=== PATIENT | male | born 1940 | race Caucasian/White ===

== ENCOUNTER 2018-03-20 11:04 | Emergency (ER) | payer OTHER ==
--- NOTE | 2018-03-20 13:38 | RAD REPORT ---
EXAM DESCRIPTION: RAD Hip Right 2 View 03/20/2018 11:34 CLINICAL HISTORY: Hip pain, history of recent falls. TECHNIQUE: AP and frog leg lateral views of the right hip were obtained. COMPARISON: Right hip December 19, 2016. FINDINGS: No acute fracture change. No dislocation or periosteal reaction. No AVN or focal femoral head process. No joint effusion. Minimal degenerative change along the superior acetabular rim. No joint effusion or periarticular abnormality. There is an old well healed proximal femur fracture. Numerous surgical clips are present in the soft tissues presumed to be vein harvesting. No suspicious soft tissue finding. IMPRESSION: 1. Minimal degenerative change at the right hip joint. 2. No acute or suspicious finding is seen. No significant change from November 2016.
[2018-03-20] MEDS ORDERED: CIPROFLOXACIN HCL 500 MG TAB ONE (13:43)
[2018-03-20 14:04] LABS: Urine Bacteria >50 /HPF (NONE SEEN); Urine RBC 20-50 /HPF (NONE SEEN)
[2018-03-20 14:05] LABS: Urine Culture Reflex Order REFLEXED; Urine White Blood Cell Casts 0-5 /LPF (NONE SEEN)
--- NOTE | 2018-03-20 14:16 | RAD REPORT ---
EXAM DESCRIPTION: CT - Abdomen Pelvis Wo Contrast - 03/20/2018 1:53 pm CLINICAL HISTORY: Abdominal pain COMPARISON: None. TECHNIQUE: Axial [address] imaging of the abdomen and pelvis was performed without IV contrast. No IV contrast was given because of allergy, abnormal renal function, patient refusal or physician re quest. No oral contrast administered. All CT scans are performed using dose optimization technique as appropriate and may include automated exposure control or mA/KV adjustment according to patient size. FINDINGS: No suspicious findings in the lung bases. No pericardial thickening or effusion. Liver size is normal with no focal liver lesion on noncontrast imaging. Spleen is normal in size. A 2 centimeter round low-density area in the lateral mid spleen is identifiable. No comparison is availa ble. Long-term significance is doubtful. No solid or cystic pancreatic mass. Punctate calcifications near the duodenum pancreatic interface are present. These are not believed to be related to the bilia ry tree. No acute peripancreatic stranding. Gallbladder is distended. No pericholecystic fluid. Numer ous variably sized gallstones are present. Biliary tree does not appear to be dilated. No hydronephrosis or suspicious renal mass. No significant adrenal finding. Isodense renal masses an d pyelonephritis cannot be excluded in the absence of IV contrast. Urinary bladder is mostly contract ed. Bacon of the urinary bladder are slightly shaggy. Cystitis is not excluded. In the lateral lower pole left kidney there is an 18 millimeter low-density mass. This is probably a cyst but not fully ch aracterized. There is symmetric bilateral perinephric stranding present. No gastric dilatation or gastric wall thickening. No acute small bowel finding. No appendicitis findi ngs. Moderate stool volume seen in the colon. No colitis or acute colon process identifiable. No free air or pneumatosis. No abnormal free fluid collections seen. No mass or bulky lymphadenopathy. No ab dominal wall hematoma. Moderate-sized fat only left inguinal hernia is present. No congested or edema tous fat. Disc and bony degenerative changes are present. Left hip prosthesis in place. Acute or pathologic bon e process not suspected. IMPRESSION: No bowel obstruction, free air or surgically emergent finding. Gallbladder is distended and contains multiple gallstones. No biliary tree dilatation. Correlation is needed with any laboratory or exam findings of cholecystitis. No pancreatitis or other acute upper abdominal findings. No acute renal or ureteral process seen. Bacon of the urinary bladder are slightly shaggy and edemato us. Cystitis is possible. Moderate-sized fat only left inguinal hernia. No congested or edematous component. Full assessment is limited is the absence of IV contrast.
[2018-03-20] MEDS ORDERED: CODEINE 30MG/APAP 300MG TAB ONE (14:35)
--- NOTE | 2018-03-20 14:38 | EDPHYS ---
Physician Documentation [facility] Name: Olvin Smith Jr Age: 77 yrs Sex: Male : 1940 Arrival Date: 03/20/2018 Time: 11:09 Bed 13 Private MD: Juan Malin E ED Physician Alex Donaldson HPI: 03/20 11:27 This 77 yrs old Male presents to ER via Wheelchair with complaints of Hip kav Pain. 11:34 The patient or guardian reports decreased range of motion, pain. that occurred at home, kav sustained from a fall, while walking, There is no obvious deformity, The patient is able to ambulate with assistance. The patient is able to bear partial body weight. There is no radiation of the patient's discomfort. The patient was discovered 2 weeksafter the incident. The complaints affect the pelvis and right hip. Onset: The symptoms/episode began/occurred acutely, 2 week(s) ago. Modifying factors: The symptoms are alleviated by nothing. Associated signs and symptoms: Loss of consciousness: the patient experienced no loss of consciousness, Pertinent positives: None. Pertinent negatives: None. Severity of symptoms: At their worst the symptoms were mild, just prior to arrival, in the emergency department the symptoms are unchanged. The patient has not experienced similar symptoms in the past. The patient has not recently seen a physician. Patient reports chief c/o right hip pain x 2 weeks related to fall approximately 2 weeks ago on the right hip. He reports ambulating with a walker and tripping and falling landing on his right hip.. 11:39 right total hip approximately 2 years ago performed in [place], [place]. kav 11:45 The patient has been recently seen by a physician: the patient's primary care provider, maciel for apparently unrelated complaints, Dr. Malin. Patient reports that he was given a prescription for Tylenol # 3 for Right Hip Pain approximately 2 days ago and that "...it does not work for him very well". 13:33 . Patient's daughter reports that she has "...been giving him some Bactrim that she got kav from [facility] for the past seven days for suspected UTI".. Historical: - Allergies: 11:34 No Known Allergies; tw2 - Home Meds: 11:34 aspirin Oral [Active]; Metoprolol Tartrate Oral [Active]; Lisinopril Oral [Active]; tw2 fluticasone topical topical [Active]; amlodipine oral [Active]; tiotropium bromide inhalation inhalation [Active]; - PMHx: 11:34 Diabetes - NIDDM; Hypertension; tw2 - PSHx: 11:34 Quadruple bypass; right hip replacement; tw2 - Immunization history:: Adult Immunizations up to date. - Social history:: Smoking status: Patient/guardian denies using tobacco. - Ebola Screening: : Patient denies travel to an Ebola-affected area in the 21 days before illness onset. - Family history:: not pertinent. - Hospitalizations: : No recent hospitalization is reported. - History obtained from: daughter. ROS: 11:39 Constitutional: Negative for fever, chills, and weight loss, Eyes: Negative for injury, kav pain, redness, and discharge, ENT: Negative for injury, pain, and discharge, Neck: Negative for injury, pain, and swelling, Cardiovascular: Negative for chest pain, palpitations, and edema, Respiratory: Negative for shortness of breath, cough, wheezing, and pleuritic chest pain, Abdomen/GI: Negative for abdominal pain, nausea, vomiting, diarrhea, and constipation, Back: Negative for injury and pain, : Negative for injury, bleeding, discharge, and swelling, Skin: Negative for injury, rash, and discoloration, Neuro: Negative for headache, weakness, numbness, tingling, and seizure, Psych: Negative for depression, anxiety, suicide ideation, homicidal ideation, and hallucinations, Allergy/Immunology: Negative for hives, rash, and allergies, Endocrine: Negative for neck swelling, polydipsia, polyuria, polyphagia, and marked weight changes, Hematologic/Lymphatic: Negative for swollen nodes, abnormal bleeding, and unusual bruising. 11:39 MS/extremity: Positive for pain, of the right hip. Exam: 11:39 Constitutional: This is a well developed, well nourished patient who is awake, alert, kav and in no acute distress. Head/Face: Normocephalic, atraumatic. Eyes: Pupils equal round and reactive to light, extra-ocular motions intact. Lids and lashes normal. Conjunctiva and sclera are non-icteric and not injected. Cornea within normal limits. Periorbital areas with no swelling, redness, or edema. ENT: Nares patent. No nasal discharge, no septal abnormalities noted. Tympanic membranes are normal and external auditory canals are clear. Oropharynx with no redness, swelling, or masses, exudates, or evidence of obstruction, uvula midline. Mucous membranes moist. Neck: Trachea midline, no thyromegaly or masses palpated, and no cervical lymphadenopathy. Supple, full range of motion without nuchal rigidity, or vertebral point tenderness. No Meningismus. Chest/axilla: Normal chest wall appearance and motion. Nontender with no deformity. No lesions are appreciated. Cardiovascular: Regular rate and rhythm with a normal S1 and S2. No gallops, murmurs, or rubs. Normal PMI, no JVD. No pulse deficits. Respiratory: Lungs have equal breath sounds bilaterally, clear to auscultation and percussion. No rales, rhonchi or wheezes noted. No increased work of breathing, no retractions or nasal flaring. Abdomen/GI: Soft, non-tender, with normal bowel sounds. No distension or tympany. No guarding or rebound. No evidence of tenderness throughout. Back: No spinal tenderness. No costovertebral tenderness. Full range of motion. Skin: Warm, dry with normal turgor. Normal color with no rashes, no lesions, and no evidence of cellulitis. Neuro: Awake and alert, GCS 15, oriented to person, place, time, and situation. Cranial nerves II-XII grossly intact. Motor strength 5/5 in all extremities. Sensory grossly intact. Cerebellar exam normal. Normal gait. Psych: Awake, alert, with orientation to person, place and time. Behavior, mood, and affect are within normal limits. 11:39 : patient smells like urine. daughter of patient request "... a urine analysis be performed". 11:39 Musculoskeletal/extremity: Extremities: noted in the right hip: pain, ROM: full active range of motion, in the right hip, full passive range of motion, in the right hip, Circulation is intact in all extremities. Pulses: are normal with no appreciated deficits, Sensation intact. Joints: the right hip displays pain at rest, Weight bearing: can bear weight with assistance only, uses walker. Vital Signs: 11:15 BP 145 / 74; Pulse 60; Resp 18; Temp 98.4; Pulse Ox 98% on R/A; Weight 90.72 kg (R); dm5 Height 5 ft. 8 in. (172.72 cm); Pain 3/10; 12:47 BP 130 / 54; Pulse 75; Resp 17; Pulse Ox 97% on R/A; tw2 13:45 BP 173 / 81; Pulse 65; Resp 17; Pulse Ox 100% on R/A; tw2 14:52 BP 167 / 68; Pulse 72; Resp 17; Pulse Ox 97% on R/A; tw2 11:15 Body Mass Index 30.41 (90.72 kg, 172.72 cm) dm5 MDM: 11:26 Patient medically screened. community [facility] 13:33 Data reviewed: vital signs, nurses notes. [facility] 03/20 13:30 Order name: Urine Microscopic Only; Complete Time: 14:44 [facility] 03/20 14:44 Interpretation: UWBC LOADED; URBC 20-50; UBACT >50. community [facility] 03/20 13:36 Order name: Urine Dipstick--Ancillary (enter results) ag 03/20 11:34 Order name: Hip Right 2 View XRAY [facility] 03/20 14:32 Interpretation: No acute disease. [facility] 03/20 13:38 Order name: CT Abd/Pelvis - Without Cont; Complete Time: 14:30 [facility] 03/20 14:32 Interpretation: No acute disease except: Cystitis. [facility] 03/20 14:06 Order name: Urine Culture [facility] 03/20 11:34 Order name: Urine Dipstick-Ancillary (obtain specimen); Complete Time: 13:11 [facility] 03/20 13:10 Interpretation: Within normal limits. community [facility] Administered Medications: 13:44 Drug: Cipro 500 mg Route: PO; tw2 14:25 Follow up: Response: No adverse reaction tw2 14:36 Drug: Tylenol #3 (300 mg-30 mg) 1 tablet Route: PO; tw2 Disposition: 16:47 Co-signature as Attending Physician, Alex Donaldson MD I agree with the assessment and kdr plan of care. Disposition: 03/20/18 14:37 Discharged to Home. Impression: Cystitis, unspecified, Erosive (osteo)arthritis, Other osteoporosis with current pathological fracture, right femur. - Condition is Stable. - Discharge Instructions: Femoral Shaft Fracture, Urinary Tract Infection, [id number], Arthritis, Nonspecific, [id number]. - Prescriptions for Tylenol- Codeine #3 300-30 mg Oral Tablet - take 2 tablet by ORAL route every 6 hours As needed; 30 tablet. Cipro 500 mg Oral Tablet - take 1 tablet by ORAL route every 12 hours for 7 days; 14 tablet. - Medication Reconciliation Form, Thank You Letter, Antibiotic Education, Prescription Opioid Use form. - Follow up: Juan Malin MD; When: 2 - 3 days; Reason: Recheck today's complaints, Continuance of care, Re-evaluation by your physician. - Problem is new. - Symptoms have improved. Signatures: Dispatcher [employer] EDMS Alex Donaldson MD MD kdr Vern, Katherine, COAL CHUTE WORKER COAL CHUTE WORKER Doreen Wesley RN RN tw2 Corrections: (The following items were deleted from the chart) 14:44 14:44 Normal except: UWBC LOADED; URBC 20-50; UBACT >[address]. [address] 14:52 14:37 03/20/2018 14:37 Discharged to Home. Impression: Cystitis, unspecified; Erosive tw2 (osteo)arthritis; Other osteoporosis with current pathological fracture, right femur. Condition is Stable. Forms are Medication Reconciliation Form, Thank You Letter, Antibiotic Education, Prescription Opioid Use. Follow up: Juan Malin; When: 2 - 3 days; Reason: Recheck today's complaints, Continuance of care, Re-evaluation by your physician. Problem is new. Symptoms have improved. kav
--- NOTE | 2018-03-20 14:38 | ER ---
Nurse's Notes [facility] Name: Olvin Smith Jr Age: 77 yrs Sex: Male : 1940 Arrival Date: 03/20/2018 Time: 11:09 Bed 13 Private MD: Juan Malin E Diagnosis: Cystitis, unspecified;Erosive (osteo)arthritis;Other osteoporosis with current pathological fracture, right femur Presentation: 03/20 11:15 Presenting complaint: Patient states: right hip replacement 2 1/2 years ago "and its dm5 not doing so good". Pain has gotten worse over the last 2-3 days. Pt denies any recent injury. Transition of care: patient was not received from another setting of care. Onset of symptoms was March 17, 2018. Risk Assessment: Do you want to hurt yourself or someone else? Patient reports no desire to harm self or others. Initial Sepsis Screen: Does the patient meet any 2 criteria? No. Patient's initial sepsis screen is negative. Does the patient have a suspected source of infection? No. Patient's initial sepsis screen is negative. Care prior to arrival: None. 11:15 Method Of Arrival: Wheelchair dm5 11:15 Acuity: MARCELINO 3 dm5 11:26 Note Daughter states pt did fall about a week and a half ago and that urine appears to dm5 be cloudy. Triage Assessment: 11:15 Pain: Complains of pain in right hip Pain does not radiate. Pain at worst was 10 out of dm5 10 on a pain scale. Quality of pain is described as aching, Pain began 2-3 days ago. Is intermittent. Historical: - Allergies: 11:34 No Known Allergies; tw2 - Home Meds: 11:34 aspirin Oral [Active]; Metoprolol Tartrate Oral [Active]; Lisinopril Oral [Active]; tw2 fluticasone topical topical [Active]; amlodipine oral [Active]; tiotropium bromide inhalation inhalation [Active]; - PMHx: 11:34 Diabetes - NIDDM; Hypertension; tw2 - PSHx: 11:34 Quadruple bypass; right hip replacement; tw2 - Immunization history:: Adult Immunizations up to date. - Social history:: Smoking status: Patient/guardian denies using tobacco. - Ebola Screening: : Patient denies travel to an Ebola-affected area in the 21 days before illness onset. - Family history:: not pertinent. - Hospitalizations: : No recent hospitalization is reported. - History obtained from: daughter. Screenin:50 Abuse screen: Denies threats or abuse. Nutritional screening: No deficits noted. tw2 Tuberculosis screening: No symptoms or risk factors identified. Fall Risk Fall in past 12 months (25 points). Assessment: 11:24 Reassessment: assisting as standby as pt gets into bed, offered for a new brief and to tw2 clean pt, pt declined stated "no thanks", daughter and at bedside. General: Appears in no apparent distress. Behavior is calm, cooperative, appropriate for age. Pain: Complains of pain in right hip. Neuro: Level of Consciousness is awake, alert, obeys commands, Oriented to person, place, time, situation. Cardiovascular: Denies chest pain, shortness of breath, Heart tones S1 S2 Capillary refill is > 3 seconds Patient's skin is warm and dry. Respiratory: Airway is patent Respiratory effort is even, unlabored, Respiratory pattern is regular, symmetrical, Breath sounds are clear bilaterally. GI: Abdomen is round non-distended, Bowel sounds present X 4 quads. : No signs and/or symptoms were reported regarding the genitourinary system. EENT: No signs and/or symptoms were reported regarding the EENT system. Derm: No signs and/or symptoms reported regarding the dermatologic system. Musculoskeletal: Circulation, motion, and sensation intact. Range of motion: intact in all extremities. 12:00 Reassessment: Patient appears in no apparent distress at this time. No changes from tw2 previously documented assessment. Patient and/or family updated on plan of care and expected duration. Pain level reassessed. Patient is alert, oriented x 3, equal unlabored respirations, skin warm/dry/pink. 13:00 Reassessment: Patient appears in no apparent distress at this time. No changes from tw2 previously documented assessment. Patient and/or family updated on plan of care and expected duration. Pain level reassessed. Patient is alert, oriented x 3, equal unlabored respirations, skin warm/dry/pink. 14:00 Reassessment: Patient appears in no apparent distress at this time. No changes from tw2 previously documented assessment. Patient and/or family updated on plan of care and expected duration. Pain level reassessed. Patient is alert, oriented x 3, equal unlabored respirations, skin warm/dry/pink. 14:10 Reassessment: pt agreed to let us change him at this time, requested we place we tw2 sweatpants back on, offered gown, pt refused. 14:26 Reassessment: Patient appears in no apparent distress at this time. pt eating tw2 [employer] hamburger at this time. NAD. 14:45 Reassessment: Patient appears in no apparent distress at this time. No changes from tw2 previously documented assessment. Patient and/or family updated on plan of care and expected duration. Pain level reassessed. Patient is alert, oriented x 3, equal unlabored respirations, skin warm/dry/pink. Vital Signs: 11:15 BP 145 / 74; Pulse 60; Resp 18; Temp 98.4; Pulse Ox 98% on R/A; Weight 90.72 kg (R); dm5 Height 5 ft. 8 in. (172.72 cm); Pain 3/10; 12:47 BP 130 / 54; Pulse 75; Resp 17; Pulse Ox 97% on R/A; tw2 13:45 BP 173 / 81; Pulse 65; Resp 17; Pulse Ox 100% on R/A; tw2 14:52 BP 167 / 68; Pulse 72; Resp 17; Pulse Ox 97% on R/A; tw2 11:15 Body Mass Index 30.41 (90.72 kg, 172.72 cm) 5 ED Course: 11:09 Patient arrived in ED. mr 11:09 Juan Malin MD is Private Physician. mr 11:15 Arm band placed on left wrist. dm5 11:18 Triage completed. dm5 11:24 Bed in low position. Call light in reach. Side rails up X2. Adult w/ patient. Pulse ox tw2 on. NIBP on. 11:26 Ann Marie Paulino FNP is PHCP. kav 11:26 Alex Donaldson MD is Attending Physician. kav 11:28 Doreen Wilson, BILL is Primary Nurse. tw2 12:16 X-ray completed. Portable x-ray completed in exam room. Patient tolerated procedure jb2 well. 12:20 Hip Right 2 View XRAY In Process Unspecified. EDMS 13:53 CT completed. Patient tolerated procedure well. Patient moved to CT via stretcher. sj Patient moved back from CT. 13:53 CT Abd/Pelvis - Without Cont In Process Unspecified. EDCA 14:33 Juan Malin MD is Referral Physician. ka 14:44 No provider procedures requiring assistance completed. Patient did not have IV access tw2 during this emergency room visit. Administered Medications: 13:44 Drug: Cipro 500 mg Route: PO; tw2 14:25 Follow up: Response: No adverse reaction tw2 14:36 Drug: Tylenol #3 (300 mg-30 mg) 1 tablet Route: PO; tw2 Outcome: 14:37 Discharge ordered by . kav 14:44 Discharged to home via wheelchair, with family. tw 14:44 Condition: stable 14:44 Discharge instructions given to patient, family, Instructed on discharge instructions, follow up and referral plans. no drinking with medication, no driving heavy equipment, medication usage, Demonstrated understanding of instructions, follow-up care, medications, Prescriptions given X 2. 14:52 Patient left the ED. tw2 Addendum: 03/24/2018 08:19 Addendum: Culture Results: Positive urine culture. Phone call Attempt #1 Spoke with s s patient's family member, who states that patient is not there at this time. Left a message with family to have patient call back at his convenience. Signatures: Dispatcher [employer] [facility] Alisha Butterfield, RN RN dm5 Ann Marie Paulino, PLASTICS SCIENTIST PLASTICS SCIENTIST Jodi Nguyen mr Anne, Devonkumar romero2 Celia Cates Shelby, RN RN ss Wise, Tara, RN RN tw2
[2018-03-20 14:56] VITALS: TEMP 98.4
[2018-03-20 14:59] VITALS: BP 167/68; O2SAT 97
[2018-03-20 17:28] LABS: Urine Blood 2+ (NEG); Urine Glucose NEGATIVE (NEG); Urine Protein 2+ (NEG); Urine pH 5.5 (5.0-7.0)
== END 2018-03-20 14:52 | disposition home or self-care (01) ==
LOC: ER 11:04
DX: M80.051A Age-related osteoporosis with current pathological fracture, right femur, initial encounter for fracture (principal); M15.4 Erosive (osteo)arthritis; N30.90 Cystitis, unspecified without hematuria; I10 Essential (primary) hypertension; E11.9 Type 2 diabetes mellitus without complications; W18.30XA Fall on same level, unspecified, initial encounter; Y93.01 Activity, walking, marching and hiking; Y92.009 Unspecified place in unspecified non-institutional (private) residence as the place of occurrence of the external cause; Z79.82 Long term (current) use of aspirin
CPT/HCPCS: 74176; 81003; 81015; 87077; 87086; 87088; 87186; 99284

== ENCOUNTER 2018-07-20 11:28 | Inpatient (IN) | payer OTHER ==
[2018-07-20] MEDS ORDERED: NA CHLORIDE 0.9% 1,000 ML ONE (12:05)
[2018-07-20 12:46] LABS: Absolute Lymphocytes (CBC) 1.7 K/uL (0.7-4.9); Absolute Monocytes 1.5 K/uL (0.1-1.3); Absolute Neutrophil 11.2 K/uL (1.8-8.0); Basophils % 0.5 % (0-1.3); Hematocrit 38.7 % (39.6-49.0); Lymphocytes % 11.8 % (15.3-44.8); MCH 30.7 pg (27.0-35.0); MCV 88.3 fL (80-100); MPV 8.4 fL (7.6-11.3); Monocytes % 10.6 % (3.3-12.3); RBC Red Blood Cell Count 4.38 M/uL (4.33-5.43)
[2018-07-20 12:51] LABS: Potassium 3.7 mmol/L (3.5-5.1)
[2018-07-20] MEDS ORDERED: LIDOCAINE VISCOUS 2% SOLN 15 ML UDC ONE (14:31)
--- NOTE | 2018-07-20 16:38 | RAD REPORT ---
EXAM DESCRIPTION: RAD - Chest Single View - 07/20/2018 3:32 pm CLINICAL HISTORY: Delays, declining state, shortness of breath COMPARISON: December 2016 TECHNIQUE: AP portable chest image was obtained 1516 hours . FINDINGS: Lung volumes are low. No failure, infiltrate or mass. Sternotomy wires in place. Heart and vasculature are normal. No measurable pleural effusion and no pneumothorax. No gross bony abnormalit y seen. No acute aortic findings suspected. IMPRESSION: No acute cardiopulmonary process.
--- NOTE | 2018-07-20 17:01 | ER ---
Nurse's Notes [facility] Name: Olvin Smith Jr Age: 78 yrs Sex: Male : 1940 Arrival Date: 07/20/2018 Time: 11:32 Bed 19 Private MD: Juan Malin E Diagnosis: Acute kidney failure Presentation: 07/20 11:36 Presenting complaint: Child states: "I think he is has a UTI because he has been aj sleeping a lot. HE also has some pain in his hips when he walks.". Transition of care: patient was not received from another setting of care. Onset of symptoms was July 18, 2018. Risk Assessment: Do you want to hurt yourself or someone else? Patient reports no desire to harm self or others. Initial Sepsis Screen: Does the patient meet any 2 criteria? No. Patient's initial sepsis screen is negative. Does the patient have a suspected source of infection? No. Patient's initial sepsis screen is negative. Care prior to arrival: None. 11:36 Method Of Arrival: Wheelchair aj 11:36 Acuity: MARCELINO 3 aj 11:38 Note Family started patient on Cipro 48 hours ago. aj Triage Assessment: 11:38 General: Appears in no apparent distress. comfortable, Behavior is calm, cooperative, aj appropriate for age. Pain: Complains of pain in left hip and right hip. Neuro: Level of Consciousness is awake, alert, obeys commands, Oriented to person, place, time, situation, Appropriate for age. Respiratory: Airway is patent Respiratory effort is even, unlabored, Respiratory pattern is regular, symmetrical. Derm: Skin is intact, is healthy with good turgor, Skin is pink, warm \\T\\ dry. normal. Historical: - Allergies: 11:37 No Known Allergies; aj - Home Meds: 11:37 amlodipine oral [Active]; Aspirin Oral [Active]; lisinopril Oral [Active]; Metoprolol aj Tartrate Oral [Active]; tiotropium bromide inhalation [Active]; 15:37 gabapentin 400 mg oral cap [Active]; levothyroxine 25 mcg tab 1 tab once daily em [Active]; carvedilol 3.125 mg oral tab 1 tab 2 times per day [Active]; rosuvastatin 40 mg oral tab 1 tab once daily [Active]; - PMHx: 11:37 Hypertension; Diabetes - NIDDM; aj - PSHx: 11:37 Quadruple bypass; right hip replacement; aj - Immunization history:: Adult Immunizations up to date. - Social history:: Smoking status: Patient/guardian denies using tobacco. - Ebola Screening: : Patient negative for fever greater than or equal to 101.5 degrees Fahrenheit, and additional compatible Ebola Virus Disease symptoms Patient denies exposure to infectious person Patient denies travel to an Ebola-affected area in the 21 days before illness onset No symptoms or risks identified at this time. Screenin:49 Abuse screen: Denies threats or abuse. Nutritional screening: No deficits noted. em Tuberculosis screening: No symptoms or risk factors identified. Fall Risk None identified. Assessment: 12:00 General: Appears in no apparent distress. comfortable, Behavior is calm, cooperative, em Denies fever. Pain: Denies pain. Neuro: Level of Consciousness is awake, alert, obeys commands, Oriented to person, place, time, Speech is normal, Facial symmetry appears normal. Cardiovascular: Denies chest pain, shortness of breath, Capillary refill < 3 seconds Patient's skin is warm and dry. Respiratory: Airway is patent Breath sounds are clear bilaterally. GI: Abdomen is round non-distended, Stools are reported to be diarrhea. Last BM was July 20, 2018. Patient currently denies nausea, vomiting, Parent/caregiver reports the patient having diarrhea. : No signs and/or symptoms were reported regarding the genitourinary system. EENT: No signs and/or symptoms were reported regarding the EENT system. Derm: Skin has skin tears on noted to the right forearm. Musculoskeletal: Range of motion: intact in all extremities. 12:15 General: The previous assessment is accurate. Call light remains within reach. . ss 13:08 Reassessment: Patient appears in no apparent distress at this time. Patient and/or em family updated on plan of care and expected duration. Pain level reassessed. Patient is alert, oriented x 3, equal unlabored respirations, skin warm/dry/pink. no UA obtained at this time Patient denies pain at this time. 14:18 Reassessment: Patient appears in no apparent distress at this time. Patient and/or em family updated on plan of care and expected duration. Pain level reassessed. Patient is alert, oriented x 3, equal unlabored respirations, skin warm/dry/pink. Patient denies pain at this time. 15:39 Reassessment: Patient appears in no apparent distress at this time. Patient and/or em family updated on plan of care and expected duration. Pain level reassessed. Patient is alert, oriented x 3, equal unlabored respirations, skin warm/dry/pink. Patient denies pain at this time. 16:26 Reassessment: Patient appears in no apparent distress at this time. Patient and/or em family updated on plan of care and expected duration. Pain level reassessed. Patient is alert, oriented x 3, equal unlabored respirations, skin warm/dry/pink. provider waiting for Dr. Humphrey to return phone call. 17:15 Reassessment: Patient appears in no apparent distress at this time. Patient and/or em family updated on plan of care and expected duration. Pain level reassessed. Patient is alert, oriented x 3, equal unlabored respirations, skin warm/dry/pink. pt ate 100% of dinner tray, tolerated well. 18:30 General: Patient cleaned of bowel incontinence. ss Vital Signs: 11:38 BP 128 / 74; Pulse 70; Resp 16; Temp 98.6; Pulse Ox 96% on R/A; Weight 90.72 kg; Height aj 5 ft. 8 in. (172.72 cm); 13:09 BP 132 / 63; Pulse 65; Resp 16; Pulse Ox 94% on R/A; Pain 0/10; em 14:00 BP 126 / 61; Pulse 65; Resp 18; Pulse Ox 94% on R/A; Pain 0/10; em 15:00 BP 134 / 68; Pulse 64; Resp 18; Pulse Ox 99% on R/A; Pain 0/10; em 15:40 BP 117 / 83; Pulse 68; Resp 18; Temp 99.0(O); Pulse Ox 99% on R/A; Pain 0/10; em 16:26 BP 138 / 71; Pulse 67; Resp 18; Pulse Ox 94% on R/A; Pain 0/10; em 17:38 BP 143 / 67; Pulse 72; Resp 18; Pulse Ox 94% on R/A; Pain 0/10; em 18:20 BP 126 / 71; Pulse 75; Resp 18; Pulse Ox 99% on R/A; Pain 0/10; em 11:38 Body Mass Index 30.41 (90.72 kg, 172.72 cm) aj ED Course: 11:32 Patient arrived in ED. mr 11:32 Juan Malin MD is Private Physician. mr 11:37 Triage completed. aj 11:38 Arm band placed on left wrist. Patient placed in an exam room. aj 11:40 Eyal Kraus MD is Attending Physician. gs 11:43 Salomón Dobbins LVN is Primary Nurse. em 12:20 Initial lab(s) drawn, by me, sent to lab. Inserted saline lock: 20 gauge in right em antecubital area, using aseptic technique. Blood collected. 12:30 Patient has correct armband on for positive identification. Placed in gown. Bed in low mh5 position. Call light in reach. Side rails up X 1. Adult w/ patient. Warm blanket given. Pulse ox on. NIBP on. 14:50 Urine collected: Galindo catheter specimen, cloudy, Amount Returned: 50mL. Galindo cath em inserted, using sterile technique, 12 Fr., by me, balloon inflated, to gravity drainage, urine specimen collected. returned cloudy urine. Patient tolerated well. 15:32 XRAY CXR (1 view) In Process Unspecified. EDMS 16:59 Eyal Kraus MD is Hospitalizing Provider. gs 16:59 Lianne Loaiza MD is Hospitalizing Provider. gs 17:35 First set of blood cultures drawn by me, Second set of blood cultures drawn by me. ds4 17:39 Flu Sent. ds4 17:39 Blood Culture* Sent. ds4 18:20 No provider procedures requiring assistance completed. Patient admitted, IV remains in em place. Administered Medications: 12:26 Drug: NS 0.9% 1000 ml Route: IV; Rate: 1 bolus; Site: right antecubital; em 13:49 Follow up: IV Status: Completed infusion; IV Intake: 1000ml em Intake: 13:49 IV: 1000ml; Total: 1000ml. em Outcome: 17:00 Decision to Hospitalize by Provider. gs 18:21 Admitted to Tele accompanied by nurse, via stretcher, room 230, with chart, Report em called to BILL Santiago 18:21 Condition: good 18:21 Instructed on the need for admit, Demonstrated understanding of instructions. 18:52 Patient left the ED. em Signatures: Dispatcher [employer] Desiree Goff RN RN aj Rivera, Bonita mr Dobbins, Salomón, MOTION PICTURE SET UP WORKER MOTION PICTURE SET UP WORKER Anne Marie Holguin RN RN ss Swanson, Donovan 4 Jodi Montoya 5 Eyal Kraus MD MD gs Corrections: (The following items were deleted from the chart) 15:38 11:37 Home Meds: fluticasone Topical; jose em
--- NOTE | 2018-07-20 17:01 | EDPHYS ---
Physician Documentation [facility] Name: Olvin Smith Jr Age: 78 yrs Sex: Male : 1940 Arrival Date: 07/20/2018 Time: 11:32 Bed 19 Private MD: Juan Malin E ED Physician Eyal Kraus HPI: 07/20 18:24 This 78 yrs old Male presents to ER via Wheelchair with complaints of Urinary gs Problem. 18:24 The patient presents to the emergency department with weakness of the entire body, gs generalized weakness. Onset: The symptoms/episode began/occurred 2 week(s) ago, per daughter says over past 2 weeks has been sleeping more not eating or drinking well.. Associated signs and symptoms: Pertinent negatives: altered mental status, dizziness, fever. Severity of symptoms: At their worst the symptoms were moderate in the emergency department the symptoms are unchanged. The patient has experienced similar episodes in the past, a few times. daughter thinks maybe has uti gave abx for 4 days. Historical: - Allergies: 11:37 No Known Allergies; aj - Home Meds: 11:37 amlodipine oral [Active]; Aspirin Oral [Active]; lisinopril Oral [Active]; Metoprolol aj Tartrate Oral [Active]; tiotropium bromide inhalation [Active]; 15:37 gabapentin 400 mg oral cap [Active]; levothyroxine 25 mcg tab 1 tab once daily em [Active]; carvedilol 3.125 mg oral tab 1 tab 2 times per day [Active]; rosuvastatin 40 mg oral tab 1 tab once daily [Active]; - PMHx: 11:37 Hypertension; Diabetes - NIDDM; aj - PSHx: 11:37 Quadruple bypass; right hip replacement; aj - Immunization history:: Adult Immunizations up to date. - Social history:: Smoking status: Patient/guardian denies using tobacco. - Ebola Screening: : Patient negative for fever greater than or equal to 101.5 degrees Fahrenheit, and additional compatible Ebola Virus Disease symptoms Patient denies exposure to infectious person Patient denies travel to an Ebola-affected area in the 21 days before illness onset No symptoms or risks identified at this time. ROS: 18:24 All other systems are negative. gs Exam: 18:24 Head/Face: Normocephalic, atraumatic. Eyes: Pupils equal round and reactive to light, gs extra-ocular motions intact. Lids and lashes normal. Conjunctiva and sclera are non-icteric and not injected. Cornea within normal limits. Periorbital areas with no swelling, redness, or edema. ENT: Nares patent. No nasal discharge, no septal abnormalities noted. Tympanic membranes are normal and external auditory canals are clear. Oropharynx with no redness, swelling, or masses, exudates, or evidence of obstruction, uvula midline. Mucous membranes moist. Neck: Trachea midline, no thyromegaly or masses palpated, and no cervical lymphadenopathy. Supple, full range of motion without nuchal rigidity, or vertebral point tenderness. No Meningismus. Chest/axilla: Normal chest wall appearance and motion. Nontender with no deformity. No lesions are appreciated. Cardiovascular: Regular rate and rhythm with a normal S1 and S2. No gallops, murmurs, or rubs. Normal PMI, no JVD. No pulse deficits. Respiratory: Lungs have equal breath sounds bilaterally, clear to auscultation and percussion. No rales, rhonchi or wheezes noted. No increased work of breathing, no retractions or nasal flaring. Abdomen/GI: Soft, non-tender, with normal bowel sounds. No distension or tympany. No guarding or rebound. No evidence of tenderness throughout. Back: No spinal tenderness. No costovertebral tenderness. Full range of motion. Skin: Warm, dry with normal turgor. Normal color with no rashes, no lesions, and no evidence of cellulitis. MS/ Extremity: Pulses equal, no cyanosis. Neurovascular intact. Full, normal range of motion. Neuro: Awake and alert, GCS 15, oriented to person, place, time, and situation. Cranial nerves II-XII grossly intact. Motor strength 5/5 in all extremities. Sensory grossly intact. Cerebellar exam normal. Normal gait. 18:24 Constitutional: The patient appears alert, awake. Vital Signs: 11:38 BP 128 / 74; Pulse 70; Resp 16; Temp 98.6; Pulse Ox 96% on R/A; Weight 90.72 kg; Height aj 5 ft. 8 in. (172.72 cm); 13:09 BP 132 / 63; Pulse 65; Resp 16; Pulse Ox 94% on R/A; Pain 0/10; em 14:00 BP 126 / 61; Pulse 65; Resp 18; Pulse Ox 94% on R/A; Pain 0/10; em 15:00 BP 134 / 68; Pulse 64; Resp 18; Pulse Ox 99% on R/A; Pain 0/10; em 15:40 BP 117 / 83; Pulse 68; Resp 18; Temp 99.0(O); Pulse Ox 99% on R/A; Pain 0/10; em 16:26 BP 138 / 71; Pulse 67; Resp 18; Pulse Ox 94% on R/A; Pain 0/10; em 17:38 BP 143 / 67; Pulse 72; Resp 18; Pulse Ox 94% on R/A; Pain 0/10; em 18:20 BP 126 / 71; Pulse 75; Resp 18; Pulse Ox 99% on R/A; Pain 0/10; em 11:38 Body Mass Index 30.41 (90.72 kg, 172.72 cm) aj MDM: 11:58 Patient medically screened. 18:24 Data reviewed: vital signs, nurses notes, lab test result(s). ED course: no uti, no gs fever, worsening of renal function . pt is not toxic actually up awake eating entire meal seems coherent. will place in hospital hydrate will culture recheck labs ok plan with cassidy on for fall. 07/20 11:58 Order name: CBC with Diff; Complete Time: 13:57 07/20 11:58 Order name: Basic Metabolic Panel; Complete Time: 13:57 07/20 11:58 Order name: Urine Microscopic Only 07/20 15:08 Order name: Urine Dipstick--Ancillary (enter results) 07/20 16:57 Order name: Blood Culture* 07/20 16:57 Order name: Flu; Complete Time: 18:30 07/20 15:01 Order name: XRAY CXR (1 view); Complete Time: 16:39 07/20 15:29 Order name: Diet Regular; Complete Time: 15:29 07/20 17:41 Order name: Regular EDGA 07/20 17:41 Order name: Basic Metabolic Panel EDGA 07/20 17:41 Order name: Basic Metabolic Panel EDGA 07/20 17:41 Order name: CBC with Automated Diff EDGA 07/20 17:41 Order name: CBC with Automated Diff EDGA 07/20 11:58 Order name: Urine Dipstick-Ancillary (obtain specimen); Complete Time: 15:20 Administered Medications: 12:26 Drug: NS 0.9% 1000 ml Route: IV; Rate: 1 bolus; Site: right antecubital; em 13:49 Follow up: IV Status: Completed infusion; IV Intake: 1000ml em Disposition: 07/20/18 17:00 Hospitalization ordered by Lianne Fall for Inpatient Admission. Preliminary diagnosis is Acute kidney failure. - Bed requested for Telemetry/MedSurg (Inpatient). - Status is Inpatient Admission. em - Condition is Stable. - Problem is new. - Symptoms have improved. UTI on Admission? No Signatures: Dispatcher [employer] [facility] Desiree Swann RN Salomón Herndon LVN LVN em Starr, Gregory, MD MD gs Botello, Elizabeth eb Corrections: (The following items were deleted from the chart) 15:38 11:37 Home Meds: fluticasone Topical; [facility] 18:02 17:00 Hospitalization Ordered by A Josse GUILLERMO for Inpatient Admission. Preliminary eb diagnosis is Acute kidney failure. Bed requested for Telemetry/MedSurg (Inpatient). Status is Inpatient Admission. Condition is Stable. Problem is new. Symptoms have improved. UTI on Admission? No. 18:52 18:02 07/20/2018 17:00 Hospitalization Ordered by A Josse GUILLERMO for Inpatient Admission. em Preliminary diagnosis is Acute kidney failure. Bed requested for Telemetry/MedSurg (Inpatient). Status is Inpatient Admission. Condition is Stable. Problem is new. Symptoms have improved. UTI on Admission? No. eb
[2018-07-20] MEDS ORDERED: ACETAMINOPHEN 500 MG TAB PO PRN (17:40)
[2018-07-20] MEDS ORDERED: NA CHLORIDE 0.9% 1,000 ML IV SCH (18:00)
[2018-07-20 19:40] LABS: Urine Blood 3+ (NEG); Urine Glucose NEGATIVE (NEG); Urine Protein 3+ (NEG)
[2018-07-20] MEDS ORDERED: D5W 1,000 ML IV ONE (21:14)
[2018-07-20] MEDS ORDERED: SODIUM BICARB 50 MEQ/50ML VIAL ONE (21:16)
[2018-07-20] MEDS: D5W 1,000 ML with NA BICARB 8.4% 50 MEQ IV SCH ×2 (21:25)
[2018-07-21 00:12] VITALS: BMI 30.4
[2018-07-21 06:07] LABS: Absolute Lymphocytes (CBC) 1.7 K/uL (0.7-4.9); Absolute Neutrophil 7.6 K/uL (1.8-8.0); Basophils % 0.4 % (0-1.3); Eosinophils % 0.6 % (0-4.4); Hematocrit 33.7 % (39.6-49.0); Lymphocytes % 16.1 % (15.3-44.8); MCH 31.4 pg (27.0-35.0); MCV 88.4 fL (80-100); MPV 8.4 fL (7.6-11.3); Monocytes % 10.1 % (3.3-12.3); RBC Red Blood Cell Count 3.81 M/uL (4.33-5.43)
[2018-07-21 06:34] LABS: Potassium 3.6 mmol/L (3.5-5.1)
[2018-07-21] MEDS: D5W 1,000 ML with NA BICARB 8.4% 50 MEQ IV SCH ×2 (07:30)
--- NOTE | 2018-07-21 09:27 | P.HP ---
Certification for Inpatient Patient admitted to: Inpatient With expected LOS: >2 Midnights Patient will require the following post-hospital care: None Practitioner: I am a practitioner with admitting privileges, knowledge of patient current condition, hospital course, and medical plan of care. Services: Services provided to patient in accordance with Admission requirements found in Title 42 Section 412.3 of the Code of Federal Regulations Patient History Date of Service: 07/21/18 Reason for admission: Acute kidney injury History of Present Illness: (Patient was initially admitted to Dr. Humphrey's service. However, patient's primary care provider was Dr. Malin. Patient was transferred to the hospitalist service.) Patient is a 78-year-old gentleman who states he has been having intractable nausea and vomiting for the last 2-3 days. Patient is clinically felt much worse so he came into the hospital. In the emergency room he was found to have worsening renal function. Patient was dehydrated along with worsening kidney function. The patient was given IV fluids and antiemetics. Patient will be admitted to the hospital for further evaluation. Allergies No Known Allergies Allergy (Unverified 12/19/16 20:07) Home Medications: Aspirin Chewable [Aspirin Chewable*] 81 mg PO DAILY 12/20/16 Amlodipine [Norvasc*] 5 mg PO BID #60 tab 12/28/16 Carvedilol [Coreg] 3.125 mg PO BID 07/20/18 Gabapentin [Neurontin] 300 mg PO DAILY 07/20/18 Gabapentin [Neurontin] 400 mg PO BEDTIME 07/20/18 Levothyroxine [Synthroid] 0.025 mg PO OVAIU2RT 07/20/18 Rosuvastatin [Crestor] 40 mg PO DAILY 07/20/18 - Past Medical/Surgical History Diabetic: Yes -: HTN -: DM-2 -: R MYRANDA -: QUADRUPLE BIPASS (1999) - Family History Father Family History: Reviewed- Non-Contributory - Social History Smoking Status: Never smoker Alcohol use: No CD- Drugs: No Caffeine use: No Place of Residence: Home Review of Systems 10-point ROS is otherwise unremarkable Physical Examination - Vital Signs Temperature: 99.1 F Blood Pressure: 150/68 Pulse: 72 Respirations: 20 Pulse Ox (%): 93 - Physical Exam General: Alert, In no apparent distress, Oriented x3 HEENT: Atraumatic, PERRLA, Mucous membr. moist/pink, EOMI, Sclerae nonicteric Neck: Supple, 2+ carotid pulse no bruit, No LAD, Without JVD or thyroid abnormality Respiratory: Clear to auscultation bilaterally, Normal air movement Cardiovascular: Regular rate/rhythm, Normal S1 S2, No murmurs Gastrointestinal: Normal bowel sounds, Soft and benign, Non-distended, No tenderness Musculoskeletal: No clubbing, No swelling, No tenderness Integumentary: No rashes Neurological: Normal gait, Normal speech, Normal strength at 5/5 x4 extr, Normal tone, Sensation intact, Cranial nerves 3-12 intact, Normal affect Lymphatics: No axilla or inguinal lymphadenopathy - Studies Laboratory Data (last 24 hrs) 07/20/18 12:20: Sodium 142, Potassium 3.7, BUN 39 H, Creatinine 3.10 H, Glucose 287 H 07/20/18 12:20: WBC 14.5 H, Hgb 13.4 L, Hct 38.7 L, Plt Count 160 Microbiology Data (last 24 hrs): 07/20/18 17:35 Nasopharnyx Influenza Type A Antigen Screen - Final 07/20/18 17:35 Nasopharnyx Influenza Type B Antigen Screen - Final Assessment & Plan - Problems (Diagnosis) (1) Acute kidney injury Current Visit: Yes Status: Acute (2) Intractable nausea and vomiting Current Visit: Yes Status: Acute (3) Diarrhea Current Visit: Yes Status: Acute (4) Chronic kidney disease, stage 4 (severe) Current Visit: Yes Status: Acute (5) Dehydration symptoms Current Visit: Yes Status: Acute (6) HTN (hypertension) Current Visit: Yes Status: Acute Qualifiers: Hypertension type: essential hypertension Qualified Code(s): I10 - Essential (primary) hypertension (7) DM2 (diabetes mellitus, type 2) Current Visit: Yes Status: Acute Qualifiers: Diabetes mellitus complication status: without complication - Plan Plan: 1. Continue with IV hydration. Will give patient bicarb drip overnight and then change to normal saline 2. Monitor electrolytes 3. Nephrology consultation if renal function does not improve 4. Renal ultrasound 5. Strict blood pressure and blood sugar control 6. GI and DVT prophylaxis Discharge Plan: Home Plan to discharge in: Greater than 2 days - Advance Directives Does patient have a Living Will: No Does patient have a Durable POA for Healthcare: No - Code Status/Comfort Care Code Status Assessed: Yes Code Status: Full Code Critical Care: No Time Spent Managing PTS Care (In Minutes): 50
[2018-07-21] MEDS ORDERED: NA CHLORIDE 0.9% 1,000 ML IV SCH (10:30)
[2018-07-21] MEDS: NA CHLORIDE 0.9% 1,000 ML IV SCH ×2 (12:00→23:27)
[2018-07-21] MEDS: Levofloxacin500mg IV 500 MG/100 ML BAG IV SCH (12:40)
--- NOTE | 2018-07-21 14:45 | CON ---
Date of Consultation: 07/21/2018 Additional Consulting Physician: Dr. Rosen. Reason For Consultation: Elevated BUN and creatinine, fluid management. History Of Present Illness: This is a pleasant 78-year-old gentleman with significant past medical h istory of diabetes since 1999, no mention of any nephropathy, neuropathy, or retinopathy; hypertensio n since 1999; coronary artery disease, status post CABG back in 2009; colorectal cancer, status post resection, on remission since 1989. The patient was in his regular state of health. Apparently for the lost 3 to 4 days, the patient started to have abdominal pain, nausea, vomiting, and diarrhea, and started feeling sleepy. For that reason, his daughter brought him to the emergency room. In the em ergency room, primary workup showed dehydration, elevated BUN and creatinine, creatinine 3.1, GFR hermelindo n to 20. For that reason, the patient was admitted. The patient was started on IV hydration. Creat inine down to 2.8, GFR 22. Reviewing the record for the patient back in April 2017, the patient had c reatinine of 1.8, and at that time, his GFR was 35. The patient denied taking any nonsteroidal. No recent other hospitalization. No IV contrast. No recent change in his medication. Reviewing the record for the patient, home medication was not included any LEONEL inhibitor. The patien t on only calcium channel jenna and gabapentin. The patient's blood pressure has been stable. There is no incident of low blood pressure on these ad mission. No recent exposure to antibiotic. Past Medical History: Includes: 1.Diabetes. No complication of retinopathy or neuropathy, but the patient on gabapentin. The patie nt also had chronic kidney disease secondary to diabetes nephropathy. Baseline creatinine 1.8 and GF R of 35 back in April 2017. 2.Hypertension. 3.Coronary artery disease, status post CABG. 4.Colorectal CA, status post resection. 5.Hyperlipidemia. Family History: Positive for hypertension. Negative for diabetes or kidney disease. Allergies: NO KNOWN DRUG ALLERGIES. Past Surgical History: Includes: 1.Colon resection. 2.CABG back in . Social History: Denies smoking, denies drinking, denies drug abuse. Review of Systems: Head and Neck: No red eye. No ear pain. GI: Has nausea, vomiting, and diarrhea. : No polyuria. No dysuria. No hematuria. CRYOGENICS ENGINEER: Not applicable. Respiratory: No shortness of breath. Cardiovascular: No chest pain. Endocrine: No polydipsia. Neuro: No neuropathy. Musculoskeletal: Has generalized fatigue. Skin: No rash. Physical Examination: General: When I saw the patient, the patient lying in bed, comfortable, not in any distress. Vital signs: Blood pressure of 150/68, pulse of 72. Afebrile. The patient had good urine output of 1100. Chest: Clear to auscultation. Heart: S1, S2. Regular. Abdomen: Soft, nontender. Extremities: No edema. Neuro: Alert and oriented x3. Nonfocal. Laboratory Data: WBC 10.4, H and H 12/33.7, platelets of 138. Sodium 142, potassium 3.6, bicarb 27, BUN 38, creatinine 2.8, GFR of 22. Blood sugar elevated at 272, calcium 8.4. Urinalysis, specific gravity of 1.020, +3 blood, +3 protein. No leukouria. Assessment And Plan: 1.Acute kidney injury secondary to poor perfusion, acute tubular necrosis, dehydration secondary to gastrointestinal loss. Given the presence of blood in the urine without any hematuria. Rhabdo needs to be ruled out, and the patient at home on statin. I agree with holding the statin for the time be ing, and we will continue hydration. I am going to increase the IV fluid to 100 per hour. We will s end for CK and we will send for renal ultrasound, PTH to classify the chronicity of the disease. 2.Hypertension, controlled, not optimal. I am going to go ahead and resume Norvasc. 3.Blood in the urine. No hematuria. We will follow up the protein-creatinine and the renal ultraso und, and we will re-evaluate. Possible could be secondary to rhabdo. 4.Gastroenteritis. Continue hydration. We will follow up with primary. 5.Diabetes, as by the primary. Thank you, Dr. Rosen, for allowing us to participate in the care of your patient. NATASHA/GABRIELLA Voice ID: [id number] Report ID: [id number]
--- NOTE | 2018-07-21 15:27 | RAD REPORT ---
EXAM DESCRIPTION: US - Renal Ultrasound-Complete - 07/21/2018 2:04 pm CLINICAL HISTORY: Vern Flank pain COMPARISON: Abdomen Pelvis Wo Contrast dated 03/20/2018 FINDINGS: Both kidneys are mildly echogenic. Small benign renal cysts bilaterally. The right kidney measures 10.7 x 6.3 x 5.9 cm. No hydronephrosis, focal mass or perinephric fluid. The left kidney measures 11.9 x 5.5 x 5.3 cm. No hydronephrosis, focal mass or perinephric fluid. The urinary bladder is incompletely distended without gross abnormality seen. IMPRESSION: Mild bilateral echogenic kidneys compatible with medical renal disease. Small benign renal cysts bilaterally.
--- NOTE | 2018-07-21 16:09 | PN ---
History: The patient doing well. The patient was admitted with acute kidney injury secondary to dehydration. After hydration, kidney function started improving. Physical Examination: Vital Signs: Blood pressure 145/78, pulse of 63. The patient had good urine output. Chest: Clear to auscultation. Heart: S1, S2. Regular, SM . Abdomen: Soft. Nontender. Extremity: No edema. Laboratory Data: WBC 10.4, H and H 12/33.7, platelets 138. Sodium 143, potassium 3.6, bicarb 27, BUN down to 28. Creatinine down to 2. GFR of 33. Calcium 8.2. Assessment And Plan: 1. Acute kidney injury, multifactorial, secondary to prerenal secondary to gastrointestinal loss. Superimposed with ARB. Recover back close to baseline, which is 1.8. Superimposed with rhabdomyolysis, recovering. I am going to continue holding IV fluid. The patient cleared from the renal standpoint for discharge planning. 2. Rhabdomyolysis. Resolved. 3. Hypertension. Better controlled. We will continue current medication. I am going to go ahead and increase his carvedilol to 6.25. 4. Gastroenteritis. Follow up with primary. 5. Hypokalemia. We will supplement. 6. Secondary hyperparathyroidism. No need for vitamin D for the time being. We will follow up. CK Voice ID: [id number] Report ID: [id number] MTDAleksander
[2018-07-21 23:59] LABS: Urine Protein/Creatinine Ratio 2.3 ratio (<0.15)
[2018-07-22 06:24] LABS: Albumin 2.8 g/dL (3.4-5.0); Phosphorus 2.8 mg/dL (2.5-4.9); Potassium 3.1 mmol/L (3.5-5.1); Thyroid Stimulating Hormone 1.79 uIU/mL (0.360-3.740)
[2018-07-22] MEDS: NA CHLORIDE 0.9% 1,000 ML IV SCH ×2 (08:56→20:31)
[2018-07-22] MEDS ORDERED: AMLODIPINE 10 MG TAB PO SCH (09:00)
[2018-07-22 10:53] LABS: Rheumatoid Factor NEG (NEG)
[2018-07-22] MEDS: Levofloxacin500mg IV 500 MG/100 ML BAG IV SCH (11:25)
--- NOTE | 2018-07-22 11:50 | P.PN ---
Subjective Date of Service: 07/22/18 Chief Complaint: Acute kidney injury Pt seen and examined at bedside with RN. Chart Reviewed. Case DW with Nephrology. Today feeling much better than before. Review of Systems 10-point ROS is otherwise unremarkable Physical Examination - Vital Signs Temperature: 98.6 F Blood Pressure: 128/97 Pulse: 76 Respirations: 18 Pulse Ox (%): 94 - Physical Exam General: Alert, In no apparent distress HEENT: Atraumatic, PERRLA, EOMI Neck: Supple, JVD not distended Respiratory: Clear to auscultation bilaterally, Normal air movement Cardiovascular: Regular rate/rhythm, Normal S1 S2 Gastrointestinal: Normal bowel sounds, No tenderness Musculoskeletal: No tenderness Integumentary: No rashes Neurological: Normal speech, Normal tone, Normal affect Lymphatics: No axilla or inguinal lymphadenopathy - Studies Medications List Reviewed: Yes Assessment And Plan - Current Problems (Diagnosis) (1) Intractable nausea and vomiting Onset Date: 07/22/18 Current Visit: Yes Status: Acute Plan: Most Likely viral Gastroenteritis -IV Zofran for now -DC abx as viral GE -Improving N/V Qualifiers: Vomiting type: cyclical vomiting Qualified Code(s): G43.A1 - Cyclical vomiting, intractable (2) Acute kidney injury Onset Date: 07/22/18 Current Visit: Yes Status: Acute Plan: XENIA due to Dehydration vs Rhabdomylosis -IV fluids for now -CK elevated. -Nephrology Consulted. Appreciate [facility] (3) Chronic kidney disease, stage 4 (severe) Onset Date: 07/22/18 Current Visit: Yes Status: Chronic Plan: With acute Worsening (4) DM2 (diabetes mellitus, type 2) Onset Date: 07/22/18 Current Visit: Yes Status: Chronic Qualifiers: Diabetes mellitus complication status: with kidney complications Diabetes mellitus complication detail: with chronic kidney disease Chronic kidney disease stage: stage 3 (moderate) (5) HTN (hypertension) Onset Date: 07/22/18 Current Visit: Yes Status: Chronic Qualifiers: Hypertension type: essential hypertension Qualified Code(s): I10 - Essential (primary) hypertension Discharge Plan: Home Plan to discharge in: 48 Hours - Code Status/Comfort Care Code Status Assessed: Yes Critical Care: No
[2018-07-22] MEDS: CARVEDILOL 3.125 MG TAB PO SCH (20:32)
[2018-07-22] MEDS: AMLODIPINE 5 MG TAB PO SCH (20:32)
[2018-07-22] MEDS ORDERED: GABAPENTIN 400 MG CAP PO SCH (21:00)
--- NOTE | 2018-07-23 02:07 | PN ---
Date of Progress Note: 07/22/2018 Chief Complaint: Acute kidney injury. History Of Present Illness: Acute kidney injury on chronic kidney disease, nonoliguric, associated with rhabdomyolysis. CK level is up to 1168. The patient was found to have hypokalemia and received replacement. The patient developed acute on chronic kidney injury secondary to prerenal azotemia, nonoliguric urine output secondary to prerenal azotemia. He remains nonoliguric and has some element of acute tubular necrosis. The patient was found to have elevated BUN and creatinine on arrival to the hospital. The patient was started on IV fluids. He has history of diabetes mellitus, diabetic neuropathy. There is history of hypertension, coronary artery disease, colorectal cancer, CABG. Prior to this admission, he was complaining of abdominal pain, nausea, vomiting, diarrhea over last 3 to 4 days prior to this admission, and creatinine was up to 3.1. Review of Systems: Denies fever, chills. Physical Examination: Lungs: Clear to auscultation bilaterally. Heart: S1, S2. Abdomen: Soft, benign, nontender. Extremities: Minimal ankle edema. Laboratory Data: Sodium 140, potassium 3.1, chloride 106, CO2 27, BUN 31, creatinine 2.3, glucose 273, albumin 2.8. Impression And Plan: Acute kidney injury, multifactorial . Continue IV fluids. Renal ultrasound was done to rule out obstructive uropathy, and there is no evidence of hydronephrosis. The patient has small benign renal cyst, and kidneys are mildly echogenic consistent with medical renal disease. 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 Monitor for any evidence of nephritis. Continue to monitor electrolytes and replace electrolytes as needed. The patient was found to have elevated CK level. There is some element of rhabdomyolysis. Continue IV fluids. Monitor CK level. MARIA VICTORIA/GABRIELLA Voice ID: [id number] Report ID: [id number] BIA
[2018-07-23] MEDS: NA CHLORIDE 0.9% 1,000 ML IV SCH ×2 (04:00→09:33)
[2018-07-23] MEDS ORDERED: LEVOTHYROXINE SOD 0.025 MG TAB PO SCH (06:00)
[2018-07-23 06:21] LABS: Albumin 2.5 g/dL (3.4-5.0); Phosphorus 2.9 mg/dL (2.5-4.9); Potassium 3.6 mmol/L (3.5-5.1)
[2018-07-23] MEDS ORDERED: ASPIRIN 81 MG CHEWABLE TABLET PO SCH (09:00)
[2018-07-23] MEDS ORDERED: GABAPENTIN 300 MG CAP PO SCH (09:00)
[2018-07-23] MEDS: AMLODIPINE 5 MG TAB PO SCH (09:30)
[2018-07-23] MEDS: CARVEDILOL 3.125 MG TAB PO SCH (09:30)
[2018-07-23 11:15] VITALS: O2SAT 94
[2018-07-23] MEDS ORDERED: INFLUENZA VACCINE (for 3y+) 0.5 ML DOSE IMVAC ONE (14:00)
[2018-07-23] MEDS ORDERED: PNEUMOCOCCAL VACCINE 0.5 ML IMVAC ONE (14:00)
--- NOTE | 2018-07-23 17:14 | PN ---
Date of Progress Note: 07/22/2018 History: The patient doing well. The patient was admitted with acute kidney injury secondary to deh ydration. After hydration, kidney function started improving. Physical Examination: Vital Signs: Blood pressure 155/74, pulse of 64. The patient had good urine output. Chest: Clear to auscultation. Heart: S1, S2. Regular. Abdomen: Soft. Nontender. Extremity: No edema. Laboratory Data: WBC 10.4, H and H 12/33.7, platelets 138. Sodium 143, potassium 3.6, bicarb 27, BU N down to 28. Creatinine down to 2. GFR of 33. Calcium 8.2. Assessment And Plan: 1.Acute kidney injury, multifactorial, secondary to prerenal secondary to gastrointestinal loss. Mckeon perimposed with ARB. Recover back close to baseline, which is 1.8. Superimposed with rhabdomyolysis , recovering. I am going to continue holding IV fluid. The patient cleared from the renal standpoin t for discharge planning. 2.Rhabdomyolysis. Resolved. 3.Hypertension. Better controlled. We will continue current medication. I am going to go ahead an d increase his carvedilol to 6.25. 4.Gastroenteritis. Follow up with primary. 5.Hypokalemia. We will supplement. 6.Secondary hyperparathyroidism. No need for vitamin D for the time being. We will follow up. CK Voice ID: [id number] Report ID: [id number]
[2018-07-23 17:51] VITALS: BP 160/78; TEMP 98.7
[2018-07-23] MEDS ORDERED: CARVEDILOL 6.25 MG TAB PO SCH (21:00)
--- NOTE | 2018-07-24 04:24 | DS ---
Date of Discharge: 07/23/2018 Consultants: Dr. Layton and Dr. Booker with Nephrology. Admitting Diagnoses: 1.Wbvoh-em-rnihrvv kidney injury. 2.Intractable nausea and vomiting. 3.Diarrhea. 4.Acute dehydration. 5.Essential hypertension. 6.Diabetes mellitus type 2. Discharge Diagnoses: 1.Nlllw-fq-wvmcluw kidney disease stage 4, improving, currently close to baseline. 2.Intractable nausea, vomiting, likely secondary to viral gastroenteritis, improving, resolved. 3.Diabetes mellitus type 2 with chronic kidney complications. 4.Essential hypertension, stable. 5.Obesity, BMI 30. 6.Rhabdomyolysis, nontraumatic. Hospital Course: The patient is a 78-year-old male who came in with intractable nausea, vomiting, fo und to have vrxjg-dt-okpvvfq kidney injury. The patient was dehydrated. He was started on IV fluids . Nephrology was consulted. The patient also had some elevated level of creatine kinase likely seco ndary to acute mild rhabdomyolysis. The patient did have a mechanical fall and was down for about 15 to 20 minutes. His CK level was back down to normal with IV fluid hydration. Kidney function impro moose. Electrolytes were corrected. The patient was then cleared from Nephrology standpoint for disch arge. His white count also normalized. Immunology and serology studies are pending. The patient to follow up with Nephrology for workup as outpatient. His blood cultures were negative. Influenza sc reen did not show any influenza. Renal ultrasound showed medical renal disease, which is consistent with his history of chronic kidney disease, also had small benign renal cysts bilaterally. The patie nt was then cleared for discharge and was sent home in a stable condition. Activity: As tolerated. Fall precautions. Diet: Renal. Followup: Follow up with primary care physician in 2 to 3 days. Follow up with architect in training, Dr. Paulino in 2 weeks. Return to ER for worsening condition. Medications: As per medication reconciliation list. Total time spent discharging the patient was 35 minutes. Physical Examination: General: Awake, alert, oriented x3. Obese male, elderly, no acute distress. CV: S1, S2. No murmurs. Respiratory: Moving air well. No wheezing. Gastrointestinal: Abdomen is soft, nontender, nondistended. Positive bowel sounds. Extremities: No clubbing, cyanosis, or edema. Neuro: Nonfocal. Code Status: Full. SA/MODL Voice ID: [id number] Report ID: [id number]
[2018-07-24 07:50] LABS: Scleroderma Antibody (Scl-70) <1.0 AI (<1.0)
[2018-07-24 10:29] LABS: Hepatitis C Virus RNA (PCR)log <1.18 log IU/mL
[2018-07-24 12:50] LABS: P-ANCA Anti-Myeloperoxidase Ab <1.0 AI (<1.0)
[2018-07-24 18:25] LABS: HIV 1/2 Antibody Diff Not indicated.; HIV AG/AB 4TH GEN Non-reactive (Non-reactive)
[2018-07-24 20:07] LABS: HBsAG Nonreactive (Nonreactive)
== END 2018-07-23 14:04 | disposition home or self-care (01) | DRG 683 ==
LOC: ER 11:28 → ERHOLD 17:39 → 2ND 18:19
PROVIDERS: ADMIT Hospitalist; ATTEND Family Medicine
DX: N17.0 Acute kidney failure with tubular necrosis (principal); C18.9 Malignant neoplasm of colon, unspecified; M62.82 Rhabdomyolysis; A08.4 Viral intestinal infection, unspecified; E86.0 Dehydration; R31.9 Hematuria, unspecified; E87.6 Hypokalemia; N25.81 Secondary hyperparathyroidism of renal origin; E11.22 Type 2 diabetes mellitus with diabetic chronic kidney disease; I12.9 Hypertensive chronic kidney disease with stage 1 through stage 4 chronic kidney disease, or unspecified chronic kidney disease; N18.4 Chronic kidney disease, stage 4 (severe); I25.10 Atherosclerotic heart disease of native coronary artery without angina pectoris; Z95.1 Presence of aortocoronary bypass graft; Z23 Encounter for immunization
CPT/HCPCS: 36415; 51702; 71045; 76770; 80048; 80069; 81003; 82550; 82553; 82570; 83520; 83970; 84156; 84443; 85025; 86021; 86038; 86160; 86225; 86235; 86317; 86430; 86704; 87040; 87340; 87389; 87522; 87804; 90670; 96360; 99285; G0008; G0009; J7030; Q2035

== ENCOUNTER 2018-10-24 07:12 | Inpatient (IN) | payer OTHER ==
[2018-10-24 08:10] LABS: Absolute Lymphocytes (CBC) 0.7 K/uL (0.7-4.9); Absolute Monocytes 0.6 K/uL (0.1-1.3); Absolute Neutrophil 5.4 K/uL (1.8-8.0); Basophils % 0.6 % (0-1.3); Eosinophils % 1.6 % (0-4.4); Lymphocytes % 10.7 % (15.3-44.8); MPV 8.9 fL (7.6-11.3); Monocytes % 9.1 % (3.3-12.3); Protime INR 1.08; RBC Red Blood Cell Count 4.36 M/uL (4.33-5.43)
[2018-10-24 08:44] LABS: Albumin 3.7 g/dL (3.4-5.0); Bilirubin Direct 0.1 mg/dL (0-0.2); Bilirubin Total 0.5 mg/dL (0.2-1.0); CKMB Creatine Kinase MB 1.7 ng/mL (0.3-3.6); Magnesium 2.4 mg/dL (1.8-2.4); Potassium 4.1 mmol/L (3.5-5.1); Protein, Total 7.8 g/dL (6.4-8.2); Troponin (Emerg Dept Use Only) 0.04 ng/mL (0.0-0.045)
--- NOTE | 2018-10-24 09:00 | RAD REPORT ---
EXAM DESCRIPTION: CT - Head Brain Wo Cont - 10/24/2018 8:29 am CLINICAL HISTORY: Hypertension, weakness, headache COMPARISON: CT imaging November 2016 TECHNIQUE: Axial 5 mm thick images of the head were obtained without IV contrast. All CT scans are performed using dose optimization technique as appropriate and may include automated exposure control or mA/KV adjustment according to patient size. FINDINGS: No intracranial hemorrhage, mass, edema or shift of mid-line structures. No acute infarcti on changes seen. Advanced atrophy and chronic ischemic changes are present. Ventricles are in proport ion to volume loss. Arterial and physiologic calcifications are present. Intracranial findings are si milar to the 2017 study. Mastoid air cells and visualized portions of the paranasal sinuses are clear. No acute bony findings. IMPRESSION: Advanced atrophy and chronic ischemic change similar to November 2016. No acute intracranial finding seen. Chronic ischemic changes can mask nonhemorrhagic acute infarction. MR brain followup can be obtained if there is ongoing concern for acute ischemia.
[2018-10-24 09:34] LABS: Urine Bacteria <20 /HPF (NONE SEEN); Urine Culture Reflex Order NOT NEEDED; Urine RBC <5 /HPF (NONE SEEN)
--- NOTE | 2018-10-24 09:37 | RAD REPORT ---
EXAM DESCRIPTION: RAD - Chest Single View - 10/24/2018 8:26 am CLINICAL HISTORY: Shortness of breath, transient alteration of awareness COMPARISON: June 2018 TECHNIQUE: AP portable chest image was obtained 0810 hours . FINDINGS: Lung volumes are low potentially masking posterior gutter atelectasis or infiltrate. Mid a nd upper lung moyer show no acute finding. No failure or volume overload. Sternotomy wires are in place. Heart and vasculature are normal. No measurable pleural effusion and n o pneumothorax. No acute bony abnormality seen. No acute aortic findings suspected. IMPRESSION: Limited shallow inspiration exam without acute cardiopulmonary finding.
--- NOTE | 2018-10-24 10:09 | ER ---
Nurse's Notes [facility] Name: Olvin Smith Jr Age: 78 yrs Sex: Male : 1940 Arrival Date: 10/24/2018 Time: 07:21 Bed 7 Private MD: Diagnosis: Weakness;Altered mental status, unspecified Presentation: 10/24 07:24 Presenting complaint: EMS states: toned out from home, family states pt has been very ch weak, progressively over the past month. oriented to person only, normal is aaox4. pt was hypertensive at home, bp 220/110. has been having "bladder issues" for the past month, recent had US and labs drawn this AM. Transition of care: patient was not received from another setting of care. Onset of symptoms was September 2018. Risk Assessment: Do you want to hurt yourself or someone else? Unable to obtain. Initial Sepsis Screen: Does the patient meet any 2 criteria? No. Patient's initial sepsis screen is negative. Does the patient have a suspected source of infection? No. Patient's initial sepsis screen is negative. Care prior to arrival: None. 07:24 Method Of Arrival: EMS: [facility] 07:24 Acuity: MARCELINO 3 ch Triage Assessment: 07:28 General: Appears in no apparent distress. comfortable, Behavior is calm, cooperative, ch appropriate for age. Pain: Denies pain. Neuro: Level of Consciousness is awake, alert, confused, Oriented to person, Barrel Builder are weak bilaterally Moves all extremities. Weakness ems states pt can walk with assistance. Respiratory: Airway is patent Respiratory effort is even, unlabored. Derm: Skin is pink, warm \\T\\ dry. Historical: - Allergies: 07:28 No Known Allergies; ch - Home Meds: : aspirin 81 mg oral chew once daily [Active]; carvedilol 3.125 mg Oral tab 1 tab 2 times ch per day [Active]; gabapentin 400 mg Oral cap [Active]; rosuvastatin 40 mg Oral tab 1 tab once daily [Active]; - PMHx: 07:28 Hypertension; pre diabetic?; ch - PSHx: :28 Quadruple bypass; right hip replacement; ch - Immunization history:: Adult Immunizations up to date. - Social history:: Smoking status: Patient/guardian denies using tobacco. - Ebola Screening: : Patient negative for fever greater than or equal to 101.5 degrees Fahrenheit, and additional compatible Ebola Virus Disease symptoms Patient denies exposure to infectious person Patient denies travel to an Ebola-affected area in the 21 days before illness onset No symptoms or risks identified at this time. Screenin:30 Abuse screen: Denies threats or abuse. Denies injuries from another. Nutritional ch screening: No deficits noted. Tuberculosis screening: No symptoms or risk factors identified. Fall Risk Secondary diagnosis (15 points) IV access (20 points). Ambulatory Aid- None/Bed Rest/Nurse Assist (0 pts). Gait- Impaired (20 pts.). Mental Status- Overestimates/Forgets Limitations (15 pts.). Total Mitchell Fall Scale indicates High Risk Score (45 or more points). Side Rails Up X 2 Frequent Obs/Assessments Occuring Family Present and informed to notify staff if the need to leave the bedside As available patient and family educated on Fall Prevention Program and Strategies. Assessment: 07:30 Reassessment: Patient appears in no apparent distress at this time. Patient and/or ch family updated on plan of care and expected duration. Pain level reassessed. Patient is alert, oriented x 3, equal unlabored respirations, skin warm/dry/pink. 07:47 Reassessment: Family at bedside states he has urinary frequency, leaking, a foul smell, ch and they think he has a UTI. 07:47 General: Appears in no apparent distress. comfortable, Behavior is cooperative, ch appropriate for age. Pain: Denies pain. Neuro: Level of Consciousness is obeys commands, lethargic, Oriented to person. Respiratory: Airway is patent Respiratory effort is even, unlabored, Breath sounds are clear bilaterally. GI: No signs and/or symptoms were reported involving the gastrointestinal system. Abdomen is round non-distended, Bowel sounds present X 4 quads. : No signs and/or symptoms were reported regarding the genitourinary system. Derm: Skin is pink, warm \\T\\ dry. 08:37 Derm: Decubitus located on sacrum approximately 7.6 cm to 20 cm is stage II pt has red ch spot to sacrum, approx 15 cm in diameter, non blanching. pt has one small open spot to R buttock. Vital Signs: 07:28 BP 134 / 66; Pulse 92; Resp 16; Temp 98.2(O); Pulse Ox 96% on R/A; Pain 0/10; ch 07:47 BP 197 / 105 LA Sitting; Pulse 92; Resp 20; Pulse Ox 94% on R/A; Pain 0/10; ch 08:53 BP 189 / 97; Pulse 95; Resp 12; Pulse Ox 94% on R/A; ch 09:06 BP 164 / 107; Pulse 96; Resp 14; Pulse Ox 95% on R/A; ch 09:57 BP 144 / 91; Pulse 95; Resp 18; Pulse Ox 99% on R/A; Pain 0/10; ch 11:51 BP 181 / 86; Pulse 102; Resp 17; Pulse Ox 96% on R/A; hb 13:31 BP 176 / 75; Pulse 102; Resp 18; Pulse Ox 95% on R/A; tw2 ED Course: 07:21 Patient arrived in ED. ch 07:24 Sandrita Turner, RN is Primary Nurse. ch 07:26 Triage completed. ch 07:28 Arm band placed on left wrist. Patient placed in an exam room, on a stretcher, on cardiac care unit nurse, on pulse oximetry. 07:28 Missed attempt(s): 20 gauge in left antecubital area. Bleeding controlled, band aid dh3 applied, catheter tip intact. 07:30 Patient has correct armband on for positive identification. Placed in gown. Bed in low ch position. Call light in reach. Side rails up X2. Adult w/ patient. on car supervisor on. Pulse ox on. NIBP on. 07:30 No provider procedures requiring assistance completed. ch 07:30 Initial lab(s) drawn, by me, sent to lab. First set of blood cultures drawn by me. dh3 Inserted saline lock: 20 gauge in right antecubital area, using aseptic technique. Blood collected. 07:33 Aelx Donaldson MD is Attending Physician. kdr 08:24 X-ray completed. Portable x-ray completed in exam room. Patient tolerated procedure jb2 well. 08:25 XRAY Chest (1 view) In Process Unspecified. EDMS 08:27 CT completed. Patient tolerated procedure well. Patient moved to CT via stretcher. sj Patient moved back from CT. 08:28 CT Head Brain wo Cont In Process Unspecified. EDMS 08:30 Straight cath inserted, using sterile technique, 14 Fr. Returned clear yellow urine. ch Patient tolerated well. pt brief saturated with urine, pt changed and sheets changed. urine has foul smell. 08:45 EKG done, by residential pest control technician. reviewed by Alex Donaldson MD. dh3 08:46 EKG done, by residential pest control technician. reviewed by Alex Donaldson MD. at1 10:07 Leni Rosen MD is Hospitalizing Provider. kdr 10:10 Primary Nurse role handed off by Sandrita Turner, BILL sg 10:10 Casey Alvarez, RN is Primary Nurse. sg 10:44 Lidia Garsia MD is Hospitalizing Provider. kdr 13:10 Awaiting: Attempted to call report at this time, was told BILL Last will be getting the tw2 pt but is unavailable at this time. Administered Medications: No medications were administered Point of Care Testing: Blood Glucose: 07:30 Blood Glucose: 192 mg/dL; ch Ranges: Outcome: 10:08 Decision to Hospitalize by Provider. kdr 13:33 Admitted to Med/surg accompanied by tech, via wheelchair, room 212, with chart, Report tw2 called to BILL Last 13:33 Condition: stable 13:33 Instructed on the need for admit. 13:55 Patient left the ED. hb Signatures: Dispatcher [employer] EDMS Sandrita Turner, RN BILL Casey Alvarez, RN Alex Pitts MD MD kdr Devon Anne jbCelia Najera Amanda, coping machine operator EKG Tat1 Jo Ibarra RN RN Doreen Wilson RN RN tw2 Marisol Estrada 3
--- NOTE | 2018-10-24 10:09 | EDPHYS ---
Physician Documentation [facility] Name: Olvin Smith Jr Age: 78 yrs Sex: Male : 1940 Arrival Date: 10/24/2018 Time: 07:21 Bed 7 Private MD: ED Physician Alex Donaldson HPI: 10/24 08:19 This 78 yrs old Male presents to ER via EMS with complaints of Altered Mental kdr Status. 08:19 The patient presents with confusion, decreased responsiveness, Sleeping more and then kdr fell out of his chair this morning. The fall was unwitnessed. He currently had no focal c/o and is o/w without c/o. When asked the month, he states September, location --slow unable to complete answer, recognizes son-in-law in the room with us. Otherwise responds appropriately for current cirtcumstances. Onset: The symptoms/episode began/occurred Last few days. Possible causes: CVA or TIA, head injury, sepsis. Associated signs and symptoms: Pertinent positives: weakness, Sleeping more the last few days. Current symptoms: In the emergency department the patient's symptoms are unchanged from the initial presentation. Patient's baseline: Neuro: alert and fully oriented, Motor: no deficits. Patient's baseline: Ambulation: walks without assistance, Speech: normal for age. The patient has not experienced similar symptoms in the past. It is unknown whether or not the patient has recently seen a physician. Historical: - Allergies: 07:28 No Known Allergies; ch - Home Meds: 07:28 aspirin 81 mg oral chew once daily [Active]; carvedilol 3.125 mg Oral tab 1 tab 2 times ch per day [Active]; gabapentin 400 mg Oral cap [Active]; rosuvastatin 40 mg Oral tab 1 tab once daily [Active]; - PMHx: 07:28 Hypertension; pre diabetic?; ch - PSHx: 07:28 Quadruple bypass; right hip replacement; ch - Immunization history:: Adult Immunizations up to date. - Social history:: Smoking status: Patient/guardian denies using tobacco. - Ebola Screening: : Patient negative for fever greater than or equal to 101.5 degrees Fahrenheit, and additional compatible Ebola Virus Disease symptoms Patient denies exposure to infectious person Patient denies travel to an Ebola-affected area in the 21 days before illness onset No symptoms or risks identified at this time. ROS: 10:00 Constitutional: Negative for fever, chills, and weight loss, Eyes: Negative for injury, kdr pain, redness, and discharge, ENT: Negative for injury, pain, and discharge, Neck: Negative for injury, pain, and swelling, Cardiovascular: Negative for chest pain, palpitations, and edema, Respiratory: Negative for shortness of breath, cough, wheezing, and pleuritic chest pain, Abdomen/GI: Negative for abdominal pain, nausea, vomiting, diarrhea, and constipation, Back: Negative for injury and pain, : Negative for injury, bleeding, discharge, and swelling, MS/Extremity: Negative for injury and deformity, Skin: Negative for injury, rash, and discoloration, Allergy/Immunology: Negative for hives, rash, and allergies, Endocrine: Negative for neck swelling, polydipsia, polyuria, polyphagia, and marked weight changes. 10:00 Neuro: Positive for altered mental status, weakness. Exam: 10:00 Constitutional: This is a well developed, well nourished patient who is sleeping but kdr eaily aroused and in no acute distress. Head/Face: Normocephalic, atraumatic. Eyes: Pupils equal round and reactive to light, extra-ocular motions intact. Lids and lashes normal. Conjunctiva and sclera are non-icteric and not injected. Cornea within normal limits. Periorbital areas with no swelling, redness, or edema. Neck: Trachea midline, no thyromegaly or masses palpated, and no cervical lymphadenopathy. Supple, full range of motion without nuchal rigidity, or vertebral point tenderness. No Meningismus. Chest/axilla: Normal chest wall appearance and motion. Nontender with no deformity. No lesions are appreciated. Cardiovascular: Regular rate and rhythm with a normal S1 and S2. No gallops, murmurs, or rubs. Normal PMI, no JVD. No pulse deficits. Respiratory: Lungs have equal breath sounds bilaterally, clear to auscultation and percussion. No rales, rhonchi or wheezes noted. No increased work of breathing, no retractions or nasal flaring. Abdomen/GI: Soft, non-tender, with normal bowel sounds. No distension or tympany. No guarding or rebound. No evidence of tenderness throughout. Back: No spinal tenderness. No costovertebral tenderness. Full range of motion. Skin: Warm, dry with normal turgor. Normal color with no rashes, no lesions, and no evidence of cellulitis. MS/ Extremity: Pulses equal, no cyanosis. Neurovascular intact. Full, normal range of motion. Psych: Awake, alert, with orientation to person, place and time. Behavior, mood, and affect are within normal limits. 10:00 Neuro: Orientation: to person, Not oriented to place, time, situation, Mentation: slow to respond, confused, sleepy, somnolent, unable to test, Memory: Poor recall of recent events. Vital Signs: 07:28 BP 134 / 66; Pulse 92; Resp 16; Temp 98.2(O); Pulse Ox 96% on R/A; Pain 0/10; ch 07:47 BP 197 / 105 LA Sitting; Pulse 92; Resp 20; Pulse Ox 94% on R/A; Pain 0/10; ch 08:53 BP 189 / 97; Pulse 95; Resp 12; Pulse Ox 94% on R/A; ch 09:06 BP 164 / 107; Pulse 96; Resp 14; Pulse Ox 95% on R/A; ch 09:57 BP 144 / 91; Pulse 95; Resp 18; Pulse Ox 99% on R/A; Pain 0/10; ch 11:51 BP 181 / 86; Pulse 102; Resp 17; Pulse Ox 96% on R/A; hb 13:31 BP 176 / 75; Pulse 102; Resp 18; Pulse Ox 95% on R/A; tw2 MDM: 10:00 Data reviewed: vital signs, nurses notes, lab test result(s), EKG, radiologic studies. kdr Counseling: I had a detailed discussion with the patient and/or guardian regarding: the historical points, exam findings, and any diagnostic results supporting the discharge/admit diagnosis, lab results, radiology results, the need for further work-up and treatment in the hospital. ED course: The patient remained somnolent in the ED and was admitted in fair condition. 10:08 Patient medically screened. kdr 10/24 07:45 Order name: Basic Metabolic Panel; Complete Time: 09:10 kdr 10/24 07:45 Order name: CBC with Diff; Complete Time: 09:10 kdr 10/24 07:45 Order name: LFT's; Complete Time: 09:10 kdr 10/24 07:45 Order name: Magnesium; Complete Time: 09:10 kdr 10/24 07:45 Order name: NT PRO-BNP; Complete Time: 09:10 kdr 10/24 07:45 Order name: PT-INR; Complete Time: 09:10 kdr 10/24 07:45 Order name: Troponin (emerg Dept Use Only); Complete Time: 09:10 kdr 10/24 07:55 Order name: Blood Culture Adult (2) kdr 10/24 07:55 Order name: Ckmb kdr 10/24 07:55 Order name: Lactate; Complete Time: 09:10 kdr 10/24 07:55 Order name: Procalcitonin; Complete Time: 09:23 kdr 10/24 07:55 Order name: Ptt, Activated; Complete Time: 09:10 kdr 10/24 07:45 Order name: XRAY Chest (1 view); Complete Time: 10:38 kdr 10/24 07:45 Order name: EKG; Complete Time: 07:46 kdr 10/24 07:45 Order name: Cardiac monitoring; Complete Time: 07:47 kdr 10/24 07:45 Order name: EKG - Nurse/Tech; Complete Time: 08:45 kdr 10/24 07:45 Order name: IV Saline Lock; Complete Time: 07:47 kdr 10/24 07:45 Order name: Labs collected and sent; Complete Time: 07:47 kdr 10/24 07:45 Order name: O2 Per Protocol; Complete Time: 07:47 kdr 10/24 07:55 Order name: Urine Microscopic Only; Complete Time: 10:38 kdr 10/24 07:55 Order name: CT Head Brain wo Cont; Complete Time: 09:10 kdr 10/24 07:55 Order name: Blood Culture EDMS 10/24 08:14 Order name: Creatine Phosphokinase; Complete Time: 09:10 EDMS 10/24 08:14 Order name: CKMB Creatine Kinase MB; Complete Time: 09:10 EDMS 10/24 08:14 Order name: Lipase; Complete Time: 09:10 EDMS 10/24 08:28 Order name: Urine Dipstick--Ancillary (enter results) ag 10/24 13:46 Order name: Glucose, Ancillary Testing EDMS 10/24 07:45 Order name: O2 Sat Monitoring; Complete Time: 07:47 kdr 10/24 07:55 Order name: Accucheck; Complete Time: 08:36 kdr 10/24 07:55 Order name: IV Saline Lock - Large Bore; Complete Time: 08:36 [facility] 10/24 07:55 Order name: Urine Dipstick-Ancillary (obtain specimen); Complete Time: 08:36 kdr Administered Medications: No medications were administered Point of Care Testing: Blood Glucose: 07:30 Blood Glucose: 192 mg/dL; Ranges: Critical Glucose Levels:Adult <50 mg/dl or >400 mg/dl <40 mg/dl or >180 mg/dl Disposition: 10/24/18 10:08 Hospitalization ordered by Lidia Garsia for Observation. Preliminary diagnosis are Weakness, Altered mental status, unspecified. - Bed requested for Telemetry/MedSurg (observation). - Status is Observation. hb - Condition is Fair. - Problem is new. - Symptoms have improved. UTI on Admission? No Signatures: Dispatcher [employer] EDAK Sandrita Turner RN RN Alex Donaldson MD MD [facility] Мария Francis Heather, RN RN Corrections: (The following items were deleted from the chart) 08:15 07:56 CKMB Creatine Kinase MB ordered. EDAK EDMS 08:15 07:56 CREATINE PHOSPHOKINASE+C.LAB.BRZ ordered. EDAK EDMS 08:15 07:56 LIPASE+C.LAB.BRZ ordered. [facility] EDMS 10:44 10:08 Hospitalization Ordered by Leni Rosen MD for Observation. Preliminary kdr diagnosis is Weakness; Altered mental status, unspecified. Bed requested for Telemetry/MedSurg (observation). Status is Observation. Condition is Fair. Problem is new. Symptoms have improved. UTI on Admission? No. kdr 11:46 10:44 10/24/2018 10:08 Hospitalization Ordered by Lidia Garsia MD for Observation. ag Preliminary diagnosis is Weakness; Altered mental status, unspecified. Bed requested for Telemetry/MedSurg (observation). Status is Observation. Condition is Fair. Problem is new. Symptoms have improved. UTI on Admission? No. kdr 13:55 11:46 10/24/2018 10:08 Hospitalization Ordered by Lidia Garsia MD for Observation. hb Preliminary diagnosis is Weakness; Altered mental status, unspecified. Bed requested for Telemetry/MedSurg (observation). Status is Observation. Condition is Fair. Problem is new. Symptoms have improved. UTI on Admission? No. ag
[2018-10-24 11:27] LABS: Urine Blood 1+ (NEG); Urine Glucose TRACE (NEG); Urine Protein 2+ (NEG); Urine Specific Gravity 1.015 (1.005-1.030)
[2018-10-24] MEDS ORDERED: HYDRALAZINE HCL 20 MG/ML VIAL IV ONE ×2 (14:42→14:45)
[2018-10-24 15:44] VITALS: BMI 31.1
[2018-10-24] MEDS ORDERED: GLUCAGON 1 MG/VIAL IM PRN (16:13)
[2018-10-24] MEDS ORDERED: D50W 25 GM/50 ML SYRINGE IV PRN (16:13)
[2018-10-24] MEDS ORDERED: CARVEDILOL 3.125 MG TAB PO ONE (16:24)
[2018-10-24] MEDS: INSULIN -REGULAR HUMAN 50 UNIT/0.5 ML ML SQ SCH ×2 (16:30→20:28)
--- NOTE | 2018-10-24 18:20 | P.HP ---
Certification for Inpatient Patient admitted to: Inpatient Practitioner: I am a practitioner with admitting privileges, knowledge of patient current condition, hospital course, and medical plan of care. Services: Services provided to patient in accordance with Admission requirements found in Title 42 Section 412.3 of the Code of Federal Regulations Patient History Date of Service: 10/24/18 Reason for admission: Altered mental status History of Present Illness: This is a 78-year-old male admitted for altered mental status. Unable to get any history is no family was at bedside. Patient not really abdominal much. Next number chart review and ER notes, patient admitted for altered mental status, confusion and more somnolent have progressively worsening for the past few days. He did fall out of a chair this morning. EMS was called, he was hypertensive blood pressure in the 230/110. At the time of my exam, patient was confused, unable to tell me much history. Unsure of patient's baseline has no family around at this time. Allergies No Known Allergies Allergy (Verified 10/24/18 14:42) Home Medications: RX: Aspirin Chewable [Aspirin Chewable*] 81 mg PO DAILY 12/20/16 RX: Carvedilol [Coreg*] 3.125 mg PO BID 07/20/18 RX: Gabapentin [Neurontin*] 400 mg PO BID 07/20/18 RX: Levothyroxine [Synthroid*] 0.025 mg PO [id number] 07/20/18 RX: Rosuvastatin [Crestor*] 40 mg PO DAILY 07/20/18 RX: Tamsulosin HCl 0.4 mg PO DAILY 10/24/18 - Past Medical/Surgical History Has patient received pneumonia vaccine in the past: Yes Diabetic: Yes -: HTN -: DM-2 -: high cholesterol -: colon cancer -: hypothyroidism -: kidney disease -: R MYRANDA -: QUADRUPLE BIPASS (1999) -: left hip replacement -: colectomy - Social History Smoking Status: Never smoker Alcohol use: No CD- Drugs: No Caffeine use: Yes Place of Residence: Home Review of Systems is unable to be obtained Physical Examination - Vital Signs Temperature: 99.7 F Blood Pressure: 193/94 Pulse: 97 Respirations: 16 Pulse Ox (%): 94 - Physical Exam General: In no apparent distress, Confused HEENT: Atraumatic, PERRLA, Mucous membr. moist/pink, EOMI, Sclerae nonicteric Neck: Supple, 2+ carotid pulse no bruit, No LAD, Without JVD or thyroid abnormality Respiratory: Clear to auscultation bilaterally, Normal air movement Cardiovascular: Regular rate/rhythm, Normal S1 S2 Gastrointestinal: Normal bowel sounds, No tenderness Musculoskeletal: No tenderness - Studies Laboratory Data (last 24 hrs) 10/24/18 07:30: APTT 30.8 10/24/18 07:30: Lipase Cancelled 10/24/18 07:30: PT 12.8 H, INR 1.08 10/24/18 07:30: WBC 6.9, Hgb 13.4 L, Hct 39.0 L, Plt Count 130 L 10/24/18 07:30: Sodium 141, Potassium 4.1, BUN 26 H, Creatinine 1.51 H, Glucose 192 H, Magnesium 2.4, Total Bilirubin 0.5, AST 18, ALT 21, Alkaline Phosphatase 85, Lipase 323 Assessment and Plan - Problems (Diagnosis) (1) Altered mental state Current Visit: Yes Status: Acute Qualifiers: Altered mental status type: unspecified Qualified Code(s): R41.82 - Altered mental status, unspecified (2) Hypertensive urgency Current Visit: Yes Status: Acute (3) Confusion Current Visit: Yes Status: Acute (4) Hyperlipidemia Current Visit: Yes Status: Acute Qualifiers: Hyperlipidemia type: unspecified Qualified Code(s): E78.5 - Hyperlipidemia , unspecified (5) Hypothyroid Current Visit: Yes Status: Acute Qualifiers: Hypothyroidism type: unspecified Qualified Code(s): E03.9 - Hypothyroidism , unspecified (6) Chronic kidney disease, stage 4 (severe) Onset Date: 07/22/18 Current Visit: No Status: Chronic (7) DM2 (diabetes mellitus, type 2) Onset Date: 07/22/18 Current Visit: No Status: Chronic Qualifiers: Diabetes mellitus intermediate card tender insulin use: without intermediate card tender use Diabetes mellitus complication status: with hyperglycemia Qualified Code(s): E11.65 - Type 2 diabetes mellitus with hyperglycemia (8) HTN (hypertension) Onset Date: 07/22/18 Current Visit: No Status: Chronic Qualifiers: Hypertension type: essential hypertension - Plan This is a 78-year-old male with: altered mental status. Confusion Increased somnolence Admit patient for altered mental status, increased confusion. CT head is negative for any acute abnormalities. Elevated BNP, echo ordered pending Hypertensive urgency Adjust started patient on his home carvedilol. Added indoor P.r.n. hydralazine ordered. Will continue to monitor, adjust medications as needed. Diabetes mellitus, type 2. Accu-Cheks, continue mild sliding scale insulin Hyperlipidemia Continue home medication Hypothyroidism Continue home medication Kidney disease, stage IV Patient's creatinine seems to be at baseline. Will continue to monitor DVT prophylaxis: Lovenox GI prophylaxis: None Diet: Heart healthy Disposition: Admit to floor with tele. Pending symptomatic improvement and further testing. - Advance Directives Does patient have a Living Will: No Does patient have a Durable POA for Healthcare: Yes
[2018-10-24] MEDS ORDERED: ISOSORBIDE MONO SR 60 MG TAB PO ONE (19:00)
[2018-10-25] MEDS: LEVOTHYROXINE SOD 0.025 MG TAB PO SCH (06:44)
[2018-10-25] MEDS: CARVEDILOL 3.125 MG TAB PO SCH ×2 (06:44→17:17)
[2018-10-25 07:28] LABS: Absolute Monocytes 1.1 K/uL (0.1-1.3); Absolute Neutrophil 4.1 K/uL (1.8-8.0); Basophils % 0.6 % (0-1.3); Hematocrit 39.8 % (39.6-49.0); Lymphocytes % 16.7 % (15.3-44.8); MPV 8.7 fL (7.6-11.3); Monocytes % 17.3 % (3.3-12.3); RBC Red Blood Cell Count 4.52 M/uL (4.33-5.43)
[2018-10-25] MEDS: INSULIN -REGULAR HUMAN 50 UNIT/0.5 ML ML SQ SCH ×4 (07:30→21:00)
--- NOTE | 2018-10-25 07:50 | EKG ---
Test Date: 2018-10-24 Test Time: 08:39:35 Javascript Application Developer: CAROLE MEASUREMENT RESULTS: Intervals: Rate: 94 [place]: 264 QRSD: 96 QT: 346 QTc: 432 [place]: P: 91 [place]: 264 QRS: -24 T: 56 INTERPRETIVE STATEMENTS: Sinus rhythm with 1st degree AV block Nonspecific ST and T wave abnormality Abnormal ECG Compared to ECG 12/20/2016 06:31:50 ST (T wave) deviation now present Myocardial infarct finding no longer present Electronically Signed On 10-25-18 07:46:28 COMPUTER EQUIPMENT REPAIRER by Quique Stone
[2018-10-25] MEDS: ROSUVASTATIN 10 MG TAB PO SCH (09:17)
[2018-10-25 09:18] LABS: Albumin 3.4 g/dL (3.4-5.0); Bilirubin Total 0.6 mg/dL (0.2-1.0); Phosphorus 2.8 mg/dL (2.5-4.9); Potassium 3.8 mmol/L (3.5-5.1); Protein, Total 7.3 g/dL (6.4-8.2)
[2018-10-25] MEDS: ISOSORBIDE MONO SR 60 MG TAB PO SCH (09:18)
[2018-10-25] MEDS: TAMSULOSIN 0.4 MG SR CAP PO SCH (09:18)
[2018-10-25] MEDS: ASPIRIN 81 MG CHEWABLE TABLET PO SCH (09:18)
[2018-10-25] MEDS: GABAPENTIN 400 MG CAP PO SCH ×2 (09:18→21:56)
--- NOTE | 2018-10-25 13:49 | P.PN ---
Subjective Date of Service: 10/25/18 Chief Complaint: Altered mental status Subjective: No new changes Patient seen and examined at bedside. No family at bedside. Chart reviewed and case discussed with nursing staff. Unable to get any information or history from patient. Attempted to reach daughter, unable to leave VM. Will try again . Review of Systems 10-point ROS is otherwise unremarkable Physical Examination - Vital Signs Temperature: 98.4 F Blood Pressure: 162/84 Pulse: 77 Respirations: 16 Pulse Ox (%): 95 - Physical Exam General: In no apparent distress, Oriented x1, Confused HEENT: Atraumatic, PERRLA, EOMI Neck: Supple, JVD not distended Respiratory: Clear to auscultation bilaterally, Normal air movement Cardiovascular: Regular rate/rhythm, Normal S1 S2 Gastrointestinal: Normal bowel sounds, No tenderness Musculoskeletal: No tenderness Integumentary: No rashes Neurological: Normal speech, Normal tone, Normal affect Lymphatics: No axilla or inguinal lymphadenopathy - Studies Microbiology Data (last 24 hrs): 10/24/18 08:57 Blood - Blood Anaerobic Blood Culture - Final Assessment And Plan - Current Problems (Diagnosis) (1) Altered mental state Current Visit: Yes Status: Acute Qualifiers: Altered mental status type: unspecified Qualified Code(s): R41.82 - Altered mental status, unspecified (2) Hypertensive urgency Current Visit: Yes Status: Acute (3) Confusion Current Visit: Yes Status: Acute (4) Hyperlipidemia Current Visit: Yes Status: Acute Qualifiers: Hyperlipidemia type: unspecified Qualified Code(s): E78.5 - Hyperlipidemia , unspecified (5) Hypothyroid Current Visit: Yes Status: Acute Qualifiers: Hypothyroidism type: unspecified Qualified Code(s): E03.9 - Hypothyroidism , unspecified (6) Chronic kidney disease, stage 4 (severe) Onset Date: 07/22/18 Current Visit: No Status: Chronic (7) DM2 (diabetes mellitus, type 2) Onset Date: 07/22/18 Current Visit: No Status: Chronic Qualifiers: Diabetes mellitus usp insulin use: without buttermaker helper use Diabetes mellitus complication status: with hyperglycemia Qualified Code(s): E11.65 - Type 2 diabetes mellitus with hyperglycemia (8) HTN (hypertension) Onset Date: 07/22/18 Current Visit: No Status: Chronic Qualifiers: Hypertension type: essential hypertension - Plan This is a 78-year-old male with: altered mental status. Confusion Increased somnolence CT head is negative for any acute abnormalities. Elevated BNP, echo ordered pending MRI stroke protocol ordered, pending. Hypertensive urgency Started patient on his home carvedilol. Added Imdur P.r.n. hydralazine ordered. Will continue to monitor, adjust medications as needed. Diabetes mellitus, type 2. Accu-Cheks, continue mild sliding scale insulin Hyperlipidemia Continue home medication Hypothyroidism Continue home medication Kidney disease, stage IV Patient's creatinine seems to be at baseline. Will continue to monitor DVT prophylaxis: Lovenox GI prophylaxis: None Diet: Heart healthy Disposition: Pending symptomatic improvement and further testing (MRI, ECHO)
--- NOTE | 2018-10-25 15:52 | RAD REPORT ---
EXAM DESCRIPTION: MRI - Brain Wo Cont - 10/25/2018 3:39 pm CLINICAL HISTORY: rule out stroke CVA symptomology COMPARISON: Head Brain Wo Cont dated 10/24/2018 TECHNIQUE: Multi-sequence, multiplanar MR imaging of the brain was performed without contrast. FINDINGS: Moderate motion degradation is present. No intracranial hemorrhage, hydrocephalus or extra-axial fluid collections.Moderate brain atrophy. Mi ld to moderate periventricular and deep white matter chronic microvascular ischemic changes suspected . No edema or shift of midline structures. No findings to suspect brain mass. DWI is negative for acu te CVA. Midline structures are normally formed. Mastoid air cells and paranasal sinuses are clear. IMPRESSION: Negative for acute CVA or other acute intracranial finding.
[2018-10-25] MEDS: NA CHLORIDE 0.9% 1,000 ML IV SCH (17:34)
[2018-10-25 18:17] LABS: Urine Appearance TURBID; Urine Blood 3+ (NEG); Urine Color DK YELLOW; Urine Glucose NEGATIVE (NEG); Urine Protein 3+ (NEG); Urine Specific Gravity 1.025 (1.005-1.030)
[2018-10-25 18:18] LABS: Urine Bilirubin 1+ (NEG); Urine Microscopic Reflex ORDER UMIC
[2018-10-25 18:30] LABS: Urine Bacteria 20-50 /HPF (NONE SEEN); Urine Culture Reflex Order REFLEXED; Urine RBC >50 /HPF (NONE SEEN)
[2018-10-25 18:31] LABS: Urine Amorphous Sediment 1+ /HPF (NONE SEEN); Urine Mucus 3+ /HPF (NONE SEEN)
[2018-10-25] MEDS: SUPLENA IMPAIRED RENAL 237 ML CAN PO SCH (21:00)
[2018-10-26] MEDS: CARVEDILOL 3.125 MG TAB PO SCH ×2 (06:20→17:40)
[2018-10-26] MEDS: LEVOTHYROXINE SOD 0.025 MG TAB PO SCH (06:20)
[2018-10-26] MEDS: NA CHLORIDE 0.9% 1,000 ML IV SCH ×3 (07:20→21:10)
[2018-10-26] MEDS: INSULIN -REGULAR HUMAN 50 UNIT/0.5 ML ML SQ SCH ×4 (07:30→21:11)
[2018-10-26 08:14] LABS: Potassium 3.6 mmol/L (3.5-5.1)
[2018-10-26] MEDS: TAMSULOSIN 0.4 MG SR CAP PO SCH (10:07)
[2018-10-26] MEDS: ASPIRIN 81 MG CHEWABLE TABLET PO SCH (10:07)
[2018-10-26] MEDS: GABAPENTIN 400 MG CAP PO SCH ×2 (10:08→21:11)
[2018-10-26] MEDS: ISOSORBIDE MONO SR 60 MG TAB PO SCH (10:08)
[2018-10-26] MEDS: ROSUVASTATIN 10 MG TAB PO SCH (10:08)
[2018-10-26] MEDS: SUPLENA IMPAIRED RENAL 237 ML CAN PO SCH ×2 (10:18→21:00)
--- NOTE | 2018-10-26 11:22 | P.PN ---
Subjective Date of Service: 10/26/18 Chief Complaint: Altered mental status Subjective: No new changes Patient seen and examined at bedside. No family at bedside. Chart reviewed and case discussed with nursing staff. Patient more alert and awake today. Review of Systems 10-point ROS is otherwise unremarkable Physical Examination - Vital Signs Temperature: 98.0 F Blood Pressure: 144/71 Pulse: 70 Respirations: 17 Pulse Ox (%): 94 - Physical Exam General: Alert, In no apparent distress, Oriented x2 HEENT: Atraumatic, PERRLA, EOMI Neck: Supple, JVD not distended Respiratory: Clear to auscultation bilaterally, Normal air movement Cardiovascular: Regular rate/rhythm, Normal S1 S2 Gastrointestinal: Normal bowel sounds, No tenderness Musculoskeletal: No tenderness Integumentary: No rashes Neurological: Normal speech, Normal tone, Normal affect Lymphatics: No axilla or inguinal lymphadenopathy - Studies Microbiology Data (last 24 hrs): 10/24/18 08:57 Blood - Blood Anaerobic Blood Culture - Final Assessment And Plan - Current Problems (Diagnosis) (1) Altered mental state Current Visit: Yes Status: Acute Qualifiers: Altered mental status type: unspecified Qualified Code(s): R41.82 - Altered mental status, unspecified (2) Hypertensive urgency Current Visit: Yes Status: Acute (3) Confusion Current Visit: Yes Status: Acute (4) Hyperlipidemia Current Visit: Yes Status: Acute Qualifiers: Hyperlipidemia type: unspecified Qualified Code(s): E78.5 - Hyperlipidemia , unspecified (5) Hypothyroid Current Visit: Yes Status: Acute Qualifiers: Hypothyroidism type: unspecified Qualified Code(s): E03.9 - Hypothyroidism , unspecified (6) Chronic kidney disease, stage 4 (severe) Onset Date: 07/22/18 Current Visit: No Status: Chronic (7) DM2 (diabetes mellitus, type 2) Onset Date: 07/22/18 Current Visit: No Status: Chronic Qualifiers: Diabetes mellitus [facility] insulin use: without intermediate school teacher use Diabetes mellitus complication status: with hyperglycemia Qualified Code(s): E11.65 - Type 2 diabetes mellitus with hyperglycemia (8) HTN (hypertension) Onset Date: 07/22/18 Current Visit: No Status: Chronic Qualifiers: Hypertension type: essential hypertension Qualified Code(s): I10 - Essential (primary) hypertension - Plan This is a 78-year-old male with: altered mental status. Confusion Increased somnolence Improving CT head is negative for any acute abnormalities. Elevated BNP, echo ordered pending MRI stroke protocol negative for any acute abnormalities Abnormal urinalysis UA with possible evidence of UTI, patient denying any urinary symptoms though patient with altered mental status. Will await urinary cultures, empiric antibiotics. If culture without any growth, will discontinue antibiotics. Hypertensive urgency improving Started patient on his home carvedilol. Added Imdur P.r.n. hydralazine ordered. Will continue to monitor, adjust medications as needed. Diabetes mellitus, type 2. Accu-Cheks, continue mild sliding scale insulin Hyperlipidemia Continue home medication Hypothyroidism Continue home medication Kidney disease, stage IV Patient's creatinine seems to be at baseline. Will continue to monitor DVT prophylaxis: Lovenox GI prophylaxis: None Diet: Heart healthy Disposition: Pending symptomatic improvement
[2018-10-26] MEDS ORDERED: POTASSIUM 25 MEQ EFFERV TAB PO ONE (13:00)
[2018-10-26] MEDS: CEFTRIAXONE/SWI 1gm 1 GM/10 ML SYR IV SCH (13:32)
--- NOTE | 2018-10-26 22:19 | RAD REPORT ---
EXAM DESCRIPTION: USExtremity Venous Uni Ltd10/26/2018 9:29 pm CLINICAL HISTORY: Right arm swelling COMPARISON: None FINDINGS: The right internal jugular, right subclavian, right cephalic, right axillary, right brach ial, right basilic, veins are generally compressible and demonstrate augmentation. Doppler demonstra gianni good flow. IMPRESSION: No evidence of thrombus within the veins of the right upper extremity
[2018-10-27] MEDS: LEVOTHYROXINE SOD 0.025 MG TAB PO SCH (06:58)
[2018-10-27] MEDS: CARVEDILOL 3.125 MG TAB PO SCH (06:58)
[2018-10-27] MEDS: INSULIN -REGULAR HUMAN 50 UNIT/0.5 ML ML SQ SCH ×2 (07:30→11:30)
[2018-10-27 07:41] LABS: Magnesium 2.4 mg/dL (1.8-2.4); Potassium 3.7 mmol/L (3.5-5.1)
[2018-10-27] MEDS: SUPLENA IMPAIRED RENAL 237 ML CAN PO SCH (09:00)
[2018-10-27] MEDS ORDERED: CEFTRIAXONE 1 GM/NS 50 ML 1 GM/50 ML BAG IV SCH (09:00)
[2018-10-27] MEDS: CEFTRIAXONE/SWI 1gm 1 GM/10 ML SYR IV SCH (09:00)
[2018-10-27] MEDS ORDERED: POTASSIUM 25 MEQ EFFERV TAB PO ONE (09:00)
[2018-10-27] MEDS: ROSUVASTATIN 10 MG TAB PO SCH (09:52)
[2018-10-27] MEDS: ASPIRIN 81 MG CHEWABLE TABLET PO SCH (09:52)
[2018-10-27] MEDS: GABAPENTIN 400 MG CAP PO SCH (09:52)
[2018-10-27] MEDS: TAMSULOSIN 0.4 MG SR CAP PO SCH (09:52)
[2018-10-27] MEDS: ISOSORBIDE MONO SR 60 MG TAB PO SCH (09:52)
[2018-10-27] MEDS: NA CHLORIDE 0.9% 1,000 ML IV SCH (10:00)
[2018-10-27 14:36] VITALS: O2SAT 93
--- NOTE | 2018-10-27 17:38 | P.DS ---
Admission Date: 10/26/18 Discharge Date: 10/27/18 Disposition: ROUTINE DISCHARGE Discharge Condition: GOOD Reason for Admission: Altered mental status - Problems (1) Altered mental state Status: Acute Qualifiers: Altered mental status type: unspecified Qualified Code(s): R41.82 - Altered mental status, unspecified (2) Hypertensive urgency Status: Acute (3) Confusion Status: Acute (4) Hyperlipidemia Status: Acute Qualifiers: Hyperlipidemia type: unspecified Qualified Code(s): E78.5 - Hyperlipidemia , unspecified (5) Hypothyroid Status: Acute Qualifiers: Hypothyroidism type: unspecified Qualified Code(s): E03.9 - Hypothyroidism , unspecified (6) Chronic kidney disease, stage 4 (severe) Onset Date: 07/22/18 Status: Chronic (7) DM2 (diabetes mellitus, type 2) Onset Date: 07/22/18 Status: Chronic Qualifiers: Diabetes mellitus group home insulin use: without home theater installer use Diabetes mellitus complication status: with hyperglycemia Qualified Code(s): E11.65 - Type 2 diabetes mellitus with hyperglycemia (8) HTN (hypertension) Onset Date: 07/22/18 Status: Chronic Qualifiers: Hypertension type: essential hypertension Qualified Code(s): I10 - Essential (primary) hypertension Brief History of Present Illness: This is a 78-year-old male admitted for altered mental status. Unable to get any history is no family was at bedside. Patient not really abdominal much. Next number chart review and ER notes, patient admitted for altered mental status, confusion and more somnolent have progressively worsening for the past few days. He did fall out of a chair this morning. EMS was called, he was hypertensive blood pressure in the 230/110. At the time of my exam, patient was confused, unable to tell me much history. Unsure of patient's baseline has no family around at this time. Hospital Course: altered mental status. Confusion Increased somnolence CT head negative for any acute abnormalities. MRI stroke protocol negative for any acute abnormalities Upper extremity hematoma, at site of IV venous ultrasound negative for DVT. Abnormal urinalysis, UCx with no growth UA with possible evidence of UTI, patient denying any urinary symptoms though patient with altered mental status. Urinary cultures with no growth. Per daughter, he has had this before where he would get altered, unable to express UTI symptoms and mentation would improve with antibiotics. He recieved rocephin in the hospital. discharge with PO cefdinir to comlpete 5 day course. He remained otherwise stable. his BP was elevated a few times, but he was stable with his home medications. No changes made to his other home medications at discharge. At the time of discharge, pt was AAOx3, HDS and asymptomatic. he had returned to baseline, mentation chanel according to his daughter. Discharged home in a safe manner. Has good support at home, lives with and daughter. Vital Signs/Physical Exam: Temp Pulse Resp BP Pulse Ox 98.6 F 63 18 151/68 H 95 10/27/18 12:00 10/27/18 12:00 10/27/18 12:00 10/27/18 12:00 10/27/18 12:00 General: Alert, In no apparent distress HEENT: Atraumatic, PERRLA, EOMI Neck: Supple, JVD not distended Respiratory: Clear to auscultation bilaterally, Normal air movement Cardiovascular: Regular rate/rhythm, Normal S1 S2 Gastrointestinal: Normal bowel sounds, No tenderness Musculoskeletal: No tenderness Integumentary: No rashes Neurological: Normal speech, Normal tone, Normal affect Lymphatics: No axilla or inguinal lymphadenopathy Laboratory Data at Discharge: WBC 6.3 K/uL (4.3-10.9) 10/25/18 07:00 Hgb 13.9 g/dL (13.6-17.9) 10/25/18 07:00 Hct 39.8 % (39.6-49.0) 10/25/18 07:00 Plt Count 113 K/uL (152-406) L 10/25/18 07:00 PT 12.8 SECONDS (9.5-12.5) H 10/24/18 07:30 INR 1.08 10/24/18 07:30 APTT 30.8 SECONDS (24.3-36.9) 10/24/18 07:30 Sodium 143 mmol/L (136-145) 10/27/18 06:36 Potassium 3.7 mmol/L (3.5-5.1) 10/27/18 06:36 BUN 51 mg/dL (7-18) H 10/27/18 06:36 Creatinine 1.91 mg/dL (0.55-1.3) H 10/27/18 06:36 Glucose 126 mg/dL (74-106) H 10/27/18 06:36 Phosphorus 2.8 mg/dL (2.5-4.9) 10/25/18 08:44 Magnesium 2.4 mg/dL (1.8-2.4) 10/27/18 06:36 Total Bilirubin 0.6 mg/dL (0.2-1.0) 10/25/18 08:44 AST 21 U/L (15-37) 10/25/18 08:44 ALT 23 U/L (12-78) 10/25/18 08:44 Alkaline Phosphatase 77 U/L (45-117) 10/25/18 08:44 Lipase 323 U/L (73-393) 10/24/18 07:30 Home Medications: Aspirin Chewable [Aspirin Chewable*] 81 mg PO DAILY 12/20/16 Carvedilol [Coreg*] 3.125 mg PO BID 07/20/18 Gabapentin [Neurontin*] 400 mg PO BID 07/20/18 Levothyroxine [Synthroid*] 0.025 mg PO [id number] 07/20/18 Rosuvastatin [Crestor*] 40 mg PO DAILY 07/20/18 Tamsulosin HCl 0.4 mg PO DAILY 10/24/18 Cefdinir [Cefdinir*] 300 mg PO BID #6 cap 10/27/18 New Medications: Cefdinir [Cefdinir*] 300 mg PO BID #6 cap Patient Discharge Instructions: Please follow up with your primary care physician in 1-2 weeks. Please return to the ED for worsening symptoms. Diet: AHA Activity: Ad willi Physician Review: Patient Assessed, Agree with Above Assessment and Plan Time spent managing pt's care (in minutes): 55
[2018-10-27 17:49] VITALS: BP 126/64; TEMP 98.1
== END 2018-10-27 17:03 | disposition home health service (06) | DRG 948 ==
LOC: ER 07:12 → ERHOLD 11:06 → INTOOBSV 11:06 → 2ND 13:07 → OBSVTOIN 10-26 13:38
PROVIDERS: ADMIT Family Medicine; ATTEND Family Medicine
DX: R41.0 Disorientation, unspecified (principal); N18.4 Chronic kidney disease, stage 4 (severe); N39.0 Urinary tract infection, site not specified; L76.32 Postprocedural hematoma of skin and subcutaneous tissue following other procedure; R40.0 Somnolence; I12.9 Hypertensive chronic kidney disease with stage 1 through stage 4 chronic kidney disease, or unspecified chronic kidney disease; E78.00 Pure hypercholesterolemia, unspecified; E03.9 Hypothyroidism, unspecified; I16.0 Hypertensive urgency; E11.22 Type 2 diabetes mellitus with diabetic chronic kidney disease; E78.5 Hyperlipidemia, unspecified; Y84.8 Other medical procedures as the cause of abnormal reaction of the patient, or of later complication, without mention of misadventure at the time of the procedure; Y92.239 Unspecified place in hospital as the place of occurrence of the external cause
CPT/HCPCS: 36415; 51702; 70450; 70551; 71045; 80048; 80053; 80076; 81003; 81015; 82550; 82553; 82962; 83605; 83690; 83735; 83880; 84100; 84145; 84484; 85025; 85610; 85730; 87040; 87086; 87088; 93005; 93971; 94760; 99285; J0360; J0696; J7030

== ENCOUNTER 2021-07-16 13:02 | Inpatient (IN) | payer OTHER ==
[2021-07-16 14:26] LABS: Absolute Lymphocytes (CBC) 0.6 K/uL (0.7-4.9); Basophils % 0.2 % (0-1.3); Hematocrit 32.5 % (39.6-49.0); Lymphocytes % 12.5 % (15.3-44.8); MPV 8.6 fL (7.6-11.3); RBC Red Blood Cell Count 3.55 M/uL (4.33-5.43)
[2021-07-16 14:27] LABS: Protime INR 1.15
[2021-07-16 14:48] LABS: Bilirubin Direct 0.2 mg/dL (0-0.2); Bilirubin Total 0.6 mg/dL (0.2-1.0); Magnesium 2.2 mg/dL (1.8-2.4); Potassium 3.9 mmol/L (3.5-5.1); Protein, Total 6.3 g/dL (6.4-8.2)
[2021-07-16 14:53] LABS: Troponin (Emerg Dept Use Only) 2.67 ng/mL (0.0-0.045)
--- NOTE | 2021-07-16 15:07 | RAD REPORT ---
EXAM DESCRIPTION: RAD - Chest Single View - 07/16/2021 2:37 pm CLINICAL HISTORY: SOB Chest pain. COMPARISON: Chest Single View dated 10/24/2018; Chest Single View dated 07/20/2018; Chest Single View d ated 12/27/2016; Chest Single View dated 12/25/2016 FINDINGS: Portable technique limits examination quality. Mild bilateral interstitial lung opacities are present which may represent pulmonary edema. The heart is moderately enlarged. No displaced fractures.Sternotomy wires present. IMPRESSION: Mild CHF suspected.
[2021-07-16 15:30] LABS: SARS-COV-2 RT PCR POSITIVE (NEGATIVE)
[2021-07-16] MEDS ORDERED: ASPIRIN 81 MG CHEWABLE TABLET ONE (15:43)
[2021-07-16] MEDS ORDERED: HEPARIN 5000 UNIT/ML 1 ML VIAL ONE (15:43)
[2021-07-16] MEDS ORDERED: HEPARIN/D5W 0 UNIT/0 ML BAG IV ONE (15:43)
[2021-07-16] MEDS ORDERED: ENOXAPARIN 100 MG/ML SYR SQ ONE (16:07)
[2021-07-16 16:18] LABS: C-Reactive Protein 84.8 mg/L (<3.00); Ferritin 306.9 ng/mL (26-388)
[2021-07-16 16:33] LABS: Blood Morphology Comment NOT SEEN (NOT SEEN); Platelet Estimate DECR; White Blood Cell Scan OK (OK)
--- NOTE | 2021-07-16 16:43 | ER ---
Nurse's Notes [facility] Name: Olvin Smith Jr Age: 81 yrs Sex: Male : 1940 Arrival Date: 07/16/2021 Time: 13:04 Bed 19 Private MD: Diagnosis: Coronavirus infection, unspecified;UTI/ Urinary tract infection, site not specified;Elevated troponin;Volume overload Presentation: 07/16 13:13 Chief complaint: Patient states: Chronic UTI's, son believes the antibiotic he is on ll1 for 3 days isnt working. + weakness. SOB for a couple days. Coronavirus screen: Vaccine status: Patient reports being unvaccinated. Client denies travel out of the [place] in the last 14 days. At this time, the client does not indicate any symptoms associated with coronavirus-19. Ebola Screen: Patient denies travel to an Ebola-affected area in the 21 days before illness onset. Initial Sepsis Screen: Does the patient meet any 2 criteria? No. Patient's initial sepsis screen is negative. Does the patient have a suspected source of infection? Yes: Dysuria/Frequency/Urgency/UTI. Risk Assessment: Do you want to hurt yourself or someone else? Patient reports no desire to harm self or others. Onset of symptoms was July 02, 2021. 13:13 Method Of Arrival: Wheelchair ll1 13:13 Acuity: MARCELINO 3 ll1 Triage Assessment: 16:21 General: Appears in no apparent distress. comfortable, Behavior is calm, cooperative, tr6 appropriate for age. Pain: Complains of pain in generalized body aches. EENT: No deficits noted. Neuro: No deficits noted. Level of Consciousness is lethargic. Cardiovascular: Denies chest pain. Respiratory: Reports shortness of breath cough that is Onset: The symptoms/episode began/occurred gradually, the patient has mild shortness of breath. GI: No deficits noted. : No deficits noted. Derm: No deficits noted. Musculoskeletal: No deficits noted. Historical: - Allergies: 13:15 No Known Allergies; 1 - Home Meds: 15:31 amlodipine 10 mg oral tab once daily [Active]; carvedilol 3.125 mg Oral tab 1 tab 2 tr6 times per day [Active]; levothyroxine 100 mcg oral cap once daily [Active]; simvastatin 20 mg Oral tab 1 tab once daily [Active]; tamsulosin 0.4 mg oral cap 1 cap once daily [Active]; Brilinta 90 mg oral tab 1 tab 2 times per day [Active]; aspirin 81 mg Oral chew 1 tab once daily [Active]; - PMHx: 13:15 Diabetes - NIDDM; Hypertension; pre diabetic?; thyroid; ll1 - Immunization history:: Client reports having NOT received the Covid vaccine. - Social history:: Smoking status: Patient denies any tobacco usage or history of. Screenin:24 Abuse screen: Denies threats or abuse. Denies injuries from another. Nutritional kg screening: No deficits noted. Tuberculosis screening: No symptoms or risk factors identified. Fall Risk Fall in past 12 months (25 points). Secondary diagnosis (15 points) IV access (20 points). Ambulatory Aid- Crutches/Cane/Walker (15 pts). Gait- Weak (10 pts.). Mental Status- Oriented to own ability (0 pts). Total Mitchell Fall Scale indicates Low Risk Score (25-44 pts). Fall prevention measures have been instituted. Side Rails Up X 2 Placed close to Nursing Station Frequent Obs/Assesments occuring Family Present and informed to notify staff if they need to leave bedside As available Patient and Family Educated on Fall Prevention Program and strategies. Assessment: 14:31 Respiratory: Airway. tr6 16:22 Cardiovascular: Rhythm is sinus rhythm. Respiratory: Respiratory effort is even, tr6 unlabored, Breath sounds are diminished. 21:08 General: Appears in no apparent distress. comfortable, Behavior is calm, cooperative, sj1 appropriate for age. Pain: Denies pain. Neuro: No deficits noted. Level of Consciousness is awake, obeys commands, Oriented to person, place, time. Cardiovascular: Rhythm is sinus bradycardia. Respiratory: Respiratory pattern is regular, symmetrical. GI: No deficits noted. : No deficits noted. EENT: No deficits noted. Derm: No deficits noted. 21:47 Reassessment: report called to Reuben KHAN. Pt transported via stretcher. vss. sj1 Vital Signs: 13:13 BP 133 / 65; Pulse 48; Resp 22; Temp 99.0; Pulse Ox 93% ; Weight 92.08 kg; Height 5 ft. ll1 9 in. (175.26 cm); Pain 0/10; 15:45 BP 136 / 65; Pulse 60; Resp 18; Pulse Ox 96% on R/A; tr6 16:15 BP 126 / 67; Pulse 61; Resp 20; Pulse Ox 96% on R/A; tr6 16:45 BP 110 / 60; Pulse 59; Resp 16; Pulse Ox 91% on R/A; tr6 17:30 BP 127 / 83; Pulse 64; Resp 18; Pulse Ox 95% on R/A; tr6 18:30 BP 129 / 92; Pulse 55; Resp 23; Pulse Ox 91% on R/A; tr6 19:48 BP 125 / 68; Pulse 50; Resp 15; Pulse Ox 95% on 2 lpm NC; Pain 0/10; sj1 21:04 BP 150 / 67 Sitting (auto/reg); Pulse 55; Resp 15; Temp 97.1; Pulse Ox 95% on R/A; Pain sj1 0/10; 13:13 Body Mass Index 29.98 (92.08 kg, 175.26 cm) ll1 ED Course: 13:04 Patient arrived in ED. ds1 13:13 Arm band placed on Patient placed in an exam room, on a stretcher. ll1 13:15 Triage completed. ll1 13:22 Chelsea Upton, BILL is Primary Nurse. tr6 13:32 Gomez Morris NP is PHCP. pm1 13:32 Katia Guallpa MD is Attending Physician. pm1 14:20 Inserted saline lock: 20 gauge in right antecubital area, using aseptic technique. kg Blood collected. 14:23 Basic Metabolic Panel Sent. kg 14:23 CBC with Diff Sent. kg 14:23 LFT's Sent. kg 14:23 Magnesium Sent. kg 14:23 NT PRO-BNP Sent. kg 14:23 PT-INR Sent. kg 14:23 Troponin (emerg Dept Use Only) Sent. kg 14:24 Patient has correct armband on for positive identification. Bed in low position. Call kg light in reach. Side rails up X2. Adult w/ patient. 14:37 XRAY Chest (1 view) In Process Unspecified. EDMS 16:22 No provider procedures requiring assistance completed. tr6 16:41 Kaden Adames is Hospitalizing Provider. pm1 17:46 Patient admitted, IV remains in place. tr6 19:48 Door closed. Lights dimmed. Warm blanket given. sj1 19:48 Urine Culture Sent. sj1 19:48 Urine Microscopic Only Sent. sj1 Administered Medications: 15:27 Drug: Aspirin Chewable Tablet 324 mg Route: PO; tr6 15:39 Not Given (Physician Discretion): Heparin (OH-Bolus No thrombolytic) - HEParin 60 pm1 units/kg IVP once; Max 5000 units 15:39 Not Given (Physician Discretion): Heparin ([place] Drip) 12 units/kg/hr - (HEParin 49454 pm1 units, D5W 500 ml) IV at calculated rate Per protocol; Max initial rate 1000 units/hr 15:58 Drug: Lovenox (enoxaparin) 1 mg/kg Route: Sub-Q; Site: abdomen; tr6 17:43 Follow up: Response: No adverse reaction tr6 18:52 Drug: Rocephin (cefTRIAXone) 1 grams Route: IV; Rate: calculated rate; Site: right tr6 antecubital; 21:10 Follow up: Response: No adverse reaction sj1 Outcome: 16:42 Decision to Hospitalize by Provider. pm1 17:46 Admitted to tr6 17:46 Condition: stable 17:46 Instructed on follow up and referral plans. the need for admit, safety practices, Demonstrated understanding of instructions, follow-up care. 21:48 Patient left the ED. sj1 Signatures: Dispatcher [employer] EDWV Keyona Gore ds1 Gomez Morris, [employer]ARD DRAFTER pm1 Binta Andrews RN RN 1 Chelsea Uptno RN RN tr6 Svetlana Hill RN RN kg Farzana Patel RN RN sj1 Corrections: (The following items were deleted from the chart) 14:29 14:22 CORONAVIRUS+MR.LAB.BRZ drawn and sent. kg EDMS 14:29 14:22 Influenza Screen (A \T\ B)+BA.LAB.BRZ drawn and sent. kg EDMS 18:31 18:26 Rocephin (cefTRIAXone) 1 grams IV at calculated rate in left antecubital tr6 tr6
--- NOTE | 2021-07-16 16:43 | EDPHYS ---
Physician Documentation [facility] Name: Olvin Smith Jr Age: 81 yrs Sex: Male : 1940 Arrival Date: 07/16/2021 Time: 13:04 Bed 19 Private MD: ED Physician Katia Guallpa HPI: 07/16 14:06 This 81 yrs old Male presents to ER via Wheelchair with complaints of UTI, pm1 Breathing Difficulty. 14:06 The patient has shortness of breath at rest. Onset: The symptoms/episode began/occurred pm1 3 day(s) ago. Duration: The symptoms are continuous. The patient's shortness of breath is aggravated by nothing, is alleviated by nothing. Associated signs and symptoms: Pertinent positives: non-productive cough, Generalized weakness, Pertinent negatives: chest pain, fever, nausea, vomiting. Severity of symptoms: in the emergency department the symptoms are worse. The patient has been recently seen by a physician: with different complaint(s), Diagnosed with UTI and prescribed Bactrim DS. Patient brought to the ER by family member due to generalized weakness and recent diagnosed UTI. Patient's UTI presentation generalized weakness and decreased energy. Patient was prescribed Bactrim by his PCP and has follow-up appointment with urology next week. Patient also reporting cough and shortness of breath at onset of generalized weakness for the past 3 days. No fever, chest pain, sore throat, nausea vomiting diarrhea. Historical: - Allergies: 13:15 No Known Allergies; ll1 - Home Meds: 15:31 amlodipine 10 mg oral tab once daily [Active]; carvedilol 3.125 mg Oral tab 1 tab 2 tr6 times per day [Active]; levothyroxine 100 mcg oral cap once daily [Active]; simvastatin 20 mg Oral tab 1 tab once daily [Active]; tamsulosin 0.4 mg oral cap 1 cap once daily [Active]; Brilinta 90 mg oral tab 1 tab 2 times per day [Active]; aspirin 81 mg Oral chew 1 tab once daily [Active]; - PMHx: 13:15 Diabetes - NIDDM; Hypertension; pre diabetic?; thyroid; ll1 - Immunization history:: Client reports having NOT received the Covid vaccine. - Social history:: Smoking status: Patient denies any tobacco usage or history of. ROS: 14:06 Constitutional: Negative for fever, chills, and weight loss, Cardiovascular: Negative pm1 for chest pain, palpitations, and edema. 14:06 Abdomen/GI: Negative for abdominal pain, nausea, vomiting, diarrhea, and constipation, Back: Negative for injury and pain, : Negative for injury, bleeding, discharge, and swelling, MS/Extremity: Negative for injury and deformity, Skin: Negative for injury, rash, and discoloration. 14:06 Respiratory: Positive for cough, shortness of breath. 14:06 Neuro: Positive for weakness, Generalized, Negative for dizziness, headache, numbness, tingling. Exam: 14:06 Constitutional: This is a well developed, well nourished patient who is awake, alert, pm1 and in no acute distress. Head/Face: Normocephalic, atraumatic. 14:06 Skin: Warm, dry with normal turgor. Normal color with no rashes, no lesions, and no evidence of cellulitis. MS/ Extremity: Pulses equal, no cyanosis. Neurovascular intact. Full, normal range of motion. 14:06 Cardiovascular: Exam negative for Rate: normal, Rhythm: regular, Pulses: no pulse deficits are appreciated, Heart sounds: normal, normal S1and S2, Edema: is not appreciated. 14:06 Respiratory: Exam negative for acute changes, respiratory distress, shortness of breath, Breath sounds: decreased breath sounds, that are mild, are located in both bases. 14:06 Abdomen/GI: Inspection: abdomen appears normal, Palpation: abdomen is soft and non-tender, in all quadrants. 14:06 Neuro: Exam negative for acute changes, Orientation: is normal, Mentation: is normal, Motor: is normal, moves all fours. Vital Signs: 13:13 BP 133 / 65; Pulse 48; Resp 22; Temp 99.0; Pulse Ox 93% ; Weight 92.08 kg; Height 5 ft. ll1 9 in. (175.26 cm); Pain 0/10; 15:45 BP 136 / 65; Pulse 60; Resp 18; Pulse Ox 96% on R/A; tr6 16:15 BP 126 / 67; Pulse 61; Resp 20; Pulse Ox 96% on R/A; tr6 16:45 BP 110 / 60; Pulse 59; Resp 16; Pulse Ox 91% on R/A; tr6 17:30 BP 127 / 83; Pulse 64; Resp 18; Pulse Ox 95% on R/A; tr6 18:30 BP 129 / 92; Pulse 55; Resp 23; Pulse Ox 91% on R/A; tr6 19:48 BP 125 / 68; Pulse 50; Resp 15; Pulse Ox 95% on 2 lpm NC; Pain 0/10; sj1 21:04 BP 150 / 67 Sitting (auto/reg); Pulse 55; Resp 15; Temp 97.1; Pulse Ox 95% on R/A; Pain sj1 0/10; 13:13 Body Mass Index 29.98 (92.08 kg, 175.26 cm) ll1 MDM: 13:32 Patient medically screened. pm1 14:59 Data reviewed: vital signs. pm1 15:48 Data interpreted: Pulse oximetry: on room air is 93 %. Interpretation: acceptable. pm1 Counseling: I had a detailed discussion with the patient and/or guardian regarding: the historical points, exam findings, and any diagnostic results supporting the discharge/admit diagnosis, lab results, radiology results, the need for further work-up and treatment in the hospital. 07/16 13:41 Order name: Urine Microscopic Only [facility] 07/16 13:41 Order name: Urine Culture pm 07/16 13:41 Order name: Basic Metabolic Panel; Complete Time: 14:57 pm07/16 13:41 Order name: CBC with Diff; Complete Time: 17:13 pm07/16 13:41 Order name: LFT's; Complete Time: 14:57 pm07/16 13:41 Order name: Magnesium; Complete Time: 14:57 pm07/16 13:41 Order name: NT PRO-BNP; Complete Time: 14:57 pm07/16 13:41 Order name: PT-INR; Complete Time: 14:52 pm1 07/16 13:41 Order name: Troponin (emerg Dept Use Only); Complete Time: 14:57 pm07/16 13:41 Order name: Urine Microscopic Only [facility] 07/16 13:41 Order name: Urine Culture [facility] 07/16 14:27 Order name: CBC Smear Scan; Complete Time: 17:13 [facility] 07/16 13:41 Order name: XRAY Chest (1 view); Complete Time: 15:20 pm1 07/16 14:59 Order name: Ferritin; Complete Time: 17:13 pm1 07/16 14:59 Order name: CRP; Complete Time: 17:13 pm1 07/16 14:59 Order name: Procalcitonin; Complete Time: 17:13 pm1 07/16 14:59 Order name: Lactate; Complete Time: 17:13 pm1 07/16 14:59 Order name: Blood Culture Adult (2) pm1 07/16 15:13 Order name: Ptt, Activated; Complete Time: 17:13 tr6 07/16 15:31 Order name: COVID-19/FLU A+B; Complete Time: 15:32 EDMS 07/16 18:53 Order name: Urine Dipstick-Ancillary EDMS 07/16 13:41 Order name: Urine Dipstick-Ancillary (obtain specimen); Complete Time: 14:27 pm1 07/16 13:41 Order name: EKG; Complete Time: 13:42 pm1 07/16 13:41 Order name: Cardiac monitoring; Complete Time: 14:23 pm1 07/16 13:41 Order name: EKG - Nurse/Tech; Complete Time: 14:23 pm1 07/16 13:41 Order name: IV Saline Lock; Complete Time: 14:23 pm1 07/16 13:41 Order name: Labs collected and sent; Complete Time: 14:23 pm1 07/16 13:41 Order name: O2 Per Protocol; Complete Time: 14:23 pm1 07/16 13:41 Order name: O2 Sat Monitoring; Complete Time: 14:23 pm1 Administered Medications: 15:27 Drug: Aspirin Chewable Tablet 324 mg Route: PO; tr6 15:39 Not Given (Physician Discretion): Heparin ([place]-Bolus No thrombolytic) - HEParin 60 pm1 units/kg IVP once; Max 5000 units 15:39 Not Given (Physician Discretion): Heparin ([place] Drip) 12 units/kg/hr - (HEParin 25097 pm1 units, D5W 500 ml) IV at calculated rate Per protocol; Max initial rate 1000 units/hr 15:58 Drug: Lovenox (enoxaparin) 1 mg/kg Route: Sub-Q; Site: abdomen; tr6 17:43 Follow up: Response: No adverse reaction tr6 18:52 Drug: Rocephin (cefTRIAXone) 1 grams Route: IV; Rate: calculated rate; Site: right tr6 antecubital; 21:10 Follow up: Response: No adverse reaction sj1 Disposition Summary: 07/16/21 16:42 Hospitalization Ordered Hospitalization Status: Inpatient Admission pm1 Provider: Kaden Adames pm1 Location: Telemetry/[facility] (Inpatient) pm1 Condition: Stable pm1 Problem: new pm1 Symptoms: have improved pm1 Bed/Room Type: Standard pm1 Room Assignment: [id number](07/16/21 20:48) mw Diagnosis - Coronavirus infection, unspecified pm1 - UTI/ Urinary tract infection, site not specified pm1 - Elevated troponin pm1 - Volume overload pm1 Forms: - Medication Reconciliation Form pm1 - SBAR form pm1 Addendum: 07/22/2021 04:31 Co-signature as Attending Physician, Katia Guallpa MD PA/BONDING MOLDER's history reviewed, m a2 patient interviewed, and examined. I agree with assessment and care plan and confirm the diagnosis (es) above. Signatures: Dispatcher [employer] EDWY Rajni Rudolph RN RN Gomez Jenkins NP BONDING MOLDER pm1 Katia Guallpa MD MD ma2 Binta Andrews RN RN ll1 Chelsea Upton RN RN tr6 Farzana Patel RN sj1 Corrections: (The following items were deleted from the chart) 07/16 14:29 13:42 Influenza Screen (A \T\ B)+BA.LAB.BRZ ordered. EDMS EDMS 14:29 13:42 CORONAVIRUS+MR.LAB.BRZ ordered. EDMS EDMS 19:19 14:59 CORONAVIRUS+MR.LAB.BRZ ordered. EDMS EDMS 19:19 14:59 Influenza Screen (A \T\ B)+BA.LAB.BRZ ordered. EDMS EDMS 20:48 16:42 pm1 mw
[2021-07-16] MEDS ORDERED: NA CHLORIDE 0.9% 100 ML ONE (18:44)
[2021-07-16] MEDS ORDERED: CEFTRIAXONE 1000 MG/VIAL ONE (18:44)
[2021-07-16 18:53] LABS: Urine Blood 1+ (Negative); Urine Glucose Negative (Negative); Urine Protein 3+ (Negative); Urine Specific Gravity >=1.030 (1.005-1.030); Urine pH 5.5 (5.0-7.0)
[2021-07-16 19:18] LABS: Urine Amorphous Sediment 3+ /HPF (NONE SEEN); Urine Bacteria 20-50 /HPF (NONE SEEN); Urine Mucus 3+ /HPF (NONE SEEN); Urine Urothelial Cells <5 /HPF (NONE SEEN)
[2021-07-16] MEDS ORDERED: ONDANSETRON 4 MG/2 ML VIAL IV PRN (22:10)
[2021-07-16] MEDS: INSULIN -REGULAR HUMAN 50 UNIT/0.5 ML ML SQ SCH (22:10)
[2021-07-16] MEDS: NA CHLORIDE 0.9% 1,000 ML IV SCH (22:45)
--- NOTE | 2021-07-17 | P.HP ---
Certification for Inpatient Patient admitted to: Inpatient With expected LOS: >2 Midnights Patient will require the following post-hospital care: Home Health Services Practitioner: I am a practitioner with admitting privileges, knowledge of patient current condition, hospital course, and medical plan of care. Services: Services provided to patient in accordance with Admission requirements found in Title 42 Section 412.3 of the Code of Federal Regulations Patient History Date of Service: 07/16/21 Primary Care Provider: Dr. Malin Reason for admission: UTI, Covid History of Present Illness: Chest Single View - 07/16/2021 2:37 pm CLINICAL HISTORY: SOB Chest pain. COMPARISON: Chest Single View dated 10/24/2018; Chest Single View dated 07/20/2018; Chest Single View dated 12/27/2016; Chest Single View dated 12/25/2016 FINDINGS: Portable technique limits examination quality. Mild bilateral interstitial lung opacities are present which may represent pulmonary edema. The heart is moderately enlarged. No displaced fractures. Sternotomy wires present. IMPRESSION: Mild CHF suspected. 81-year-old white male. He has a history of urinary tract infections but has not had one for the past 3 years. He again developed urinary tract systems symptoms about 3 days ago and just shortly thereafter began to also have some dy spnea. He came to the ER with mild shortness of breath and weakness. Patient's labs are remarkable for mild elevation of sugar 165 his electrolytes a mild anemia with a hemoglobin of 11 hematocrit 32.5. More concerning is a platelet count of 81. Patient has a positive Covid test. CRP of 84.8, BNP of 10,432, and a pro calcitonin of 0.19. The calcium was 7.8. Troponin was noted to be high at 2.67. Allergies No Known Allergies Allergy (Verified 10/24/18 14:42) Home medications list reviewed: Yes Home Medications: Aspirin Chewable [Aspirin Chewable*] 81 mg PO DAILY 12/20/16 Gabapentin [Neurontin*] 400 mg PO BID 07/20/18 Levothyroxine [Synthroid*] 0.025 mg PO [id number] 07/20/18 Rosuvastatin [Crestor*] 40 mg PO DAILY 07/20/18 carvediloL [Coreg*] 3.125 mg PO BID 07/20/18 Tamsulosin HCl 0.4 mg PO DAILY 01/03/19 Cefdinir [Cefdinir*] 300 mg PO BID #6 cap 10/27/18 - Past Medical/Surgical History Diabetic: Yes -: HTN -: DM-2 -: high cholesterol -: colon cancer -: hypothyroidism -: kidney disease -: R MYRANDA -: QUADRUPLE BIPASS (1999) -: left hip replacement -: colectomy Psychosocial/ Personal History: Retired, lives at home with family. - Social History Smoking Status: Never smoker Alcohol use: No CD- Drugs: No Caffeine use: Yes Place of Residence: Home Review of Systems 10-point ROS is otherwise unremarkable General: Weakness Eyes: Unremarkable ENT: Unremarkable Respiratory: SOB with Excertion Cardiovascular: Unremarkable Gastrointestinal: Diarrhea Genitourinary: Unremarkable Musculoskeletal: Unremarkable Integumentary: Unremarkable Neurological: Unremarkable Lymphatics: Unremarkable Physical Examination - Vital Signs Temperature: 99.2 F Blood Pressure: 125/58 Pulse: 62 Respirations: 22 Pulse Ox (%): 94 - Physical Exam General: Alert, Oriented x3, Cooperative, Mild distress HEENT: Atraumatic, Normocephalic, PERRLA Neck: Supple, JVD not distended Respiratory: Clear to auscultation bilaterally, Normal air movement Cardiovascular: No edema, Normal pulses, Normal S1 S2 Capillary refill: Brisk Gastrointestinal: Soft and benign, Non-distended Musculoskeletal: No swelling, No contractures, No erythema Integumentary: No rashes, No breakdown, No significant lesion Neurological: Normal speech, Normal strength at 5/5 x4 extr, Normal tone External genitalia: Deferred Rectal: Deferred Other Physical/Emotional Findings: Lives at home with family - Studies Laboratory Data (last 24 hrs) 07/16/21 15:31: APTT 32.8 07/16/21 14:07: PT 13.3 H, INR 1.15 07/16/21 14:07: WBC 5.10, Hgb 11.0 L, Hct 32.5 L, Plt Count 81 L 07/16/21 14:07: Sodium 143, Potassium 3.9, BUN 28 H, Creatinine 1.80 H, Glucose 165 H, Magnesium 2.2, Total Bilirubin 0.6, AST 42 H, ALT 27, Alkaline Phosphatase 56 Assessment and Plan - Plan Assessment UTI Dyspnea Covid Plan UTI: Rocephin, repeat procalcitonin, lactic acid, monitor intake and output. Assess for fever or signs and symptoms of infection Dyspnea: Oxygen as needed to maintain 93% Covid: Ferritin, D-dimer, CRP. 80 mg of Solu-Medrol 3 times daily. DVT prophylaxis: Brilinta CODE STATUS: Full code Discharge Plan: Home Plan to discharge in: Unknown - Advance Directives Does patient have a Living Will: No Does patient have a Durable POA for Healthcare: No - Code Status/Comfort Care Code Status Assessed: Yes Code Status: Full Code Time Spent Managing Pts Care (In Minutes): 70
[2021-07-17 04:15] LABS: Absolute Lymphocytes (CBC) 0.9 K/uL (0.7-4.9); Basophils % 0.2 % (0-1.3); Hematocrit 35.4 % (39.6-49.0); Lymphocytes % 18.5 % (15.3-44.8); MPV 8.8 fL (7.6-11.3); RBC Red Blood Cell Count 3.84 M/uL (4.33-5.43)
[2021-07-17 04:52] LABS: Albumin 2.8 g/dL (3.4-5.0); Bilirubin Total 0.4 mg/dL (0.2-1.0); Ferritin 412.6 ng/mL (26-388); Potassium 3.7 mmol/L (3.5-5.1); Protein, Total 6.4 g/dL (6.4-8.2)
[2021-07-17] MEDS: carvediloL 3.125 MG TAB PO SCH ×2 (06:28→18:00)
[2021-07-17] MEDS: LEVOTHYROXINE SOD 0.025 MG TAB PO SCH (06:28)
[2021-07-17] MEDS ORDERED: LEVOTHYROXINE SOD 0.1 MG TAB PO SCH (06:30)
[2021-07-17] MEDS: INSULIN -REGULAR HUMAN 50 UNIT/0.5 ML ML SQ SCH ×4 (07:30→20:35)
[2021-07-17] MEDS: NA CHLORIDE 0.9% 1,000 ML IV SCH ×2 (08:49→17:09)
[2021-07-17] MEDS: AMLODIPINE 10 MG TAB PO SCH (08:49)
[2021-07-17] MEDS: CEFTRIAXONE 1 GM/NS 50 ML 1 GM/50 ML BAG IV SCH (08:50)
[2021-07-17] MEDS ORDERED: TAMSULOSIN 0.4 MG SR CAP PO SCH (09:00)
[2021-07-17] MEDS ORDERED: ENOXAPARIN 40 MG/0.4 ML SQ SCH (09:00)
--- NOTE | 2021-07-17 10:22 | P.PN ---
Subjective Date of Service: 07/17/21 Primary Care Provider: Dr. Malin Chief Complaint: UTI, Covid Subjective: No new changes (Patient had an episode of bradycardia during the night.) Review of Systems 10-point ROS is otherwise unremarkable Physical Examination - Vital Signs Temperature: 100.9 F Blood Pressure: 164/71 Pulse: 89 Respirations: 22 Pulse Ox (%): 94 - Physical Exam General: Alert, In no apparent distress HEENT: Atraumatic, PERRLA, EOMI Neck: Supple, JVD not distended Respiratory: Clear to auscultation bilaterally, Normal air movement Cardiovascular: Regular rate/rhythm, Normal S1 S2 Gastrointestinal: Normal bowel sounds, No tenderness Musculoskeletal: No tenderness Integumentary: No rashes Neurological: Normal speech, Normal tone, Normal affect Lymphatics: No axilla or inguinal lymphadenopathy Other Physical/Emotional Findings: Lives at home with family - Studies Laboratory Data (last 24 hrs) 07/16/21 15:31: APTT 32.8 07/16/21 14:07: PT 13.3 H, INR 1.15 07/16/21 14:07: WBC 5.10, Hgb 11.0 L, Hct 32.5 L, Plt Count 81 L 07/16/21 14:07: Sodium 143, Potassium 3.9, BUN 28 H, Creatinine 1.80 H, Glucose 165 H, Magnesium 2.2, Total Bilirubin 0.6, AST 42 H, ALT 27, Alkaline Phosphatase 56 Assessment & Plan - Problems (Diagnosis) (1) COVID-19 Current Visit: Yes Status: Acute Plan: Mild case. No hypoxia. Will start him on a low dose of steroids as his crp is going up. Will add eliquis, asorbic acid and zinc. (2) Elevated troponin Onset Date: 12/20/16 Current Visit: No Status: Acute Plan: discussed the patient with Dr. Vallejo. Will hold his carvedilol due to the bradycardia. Will anticoagulate with eliquis. troponins are trending downwards. There is an elevation with covid. (3) DM2 (diabetes mellitus, type 2) Onset Date: 07/22/18 Current Visit: No Status: Chronic Plan: check an a1c and mild sliding scale. At this point he is doing well. 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 He is resolving with fluids. Will monitor his creatine. (6) UTI (urinary tract infection) Current Visit: Yes Status: Acute Plan: continue ceftriaxone Qualifiers: Urinary tract infection type: acute cystitis Discharge Plan: Home Plan to discharge in: Greater than 2 days - Code Status/Comfort Care Code Status Assessed: No Critical Care: No Time Spent Managing Pts Care (In Minutes): 25
[2021-07-17] MEDS: TICAGRELOR 90 MG TABLET PO SCH ×2 (11:12→20:50)
[2021-07-17] MEDS: ACETAMINOPHEN 500 MG TAB PO PRN ×2 (11:35→20:50)
--- NOTE | 2021-07-17 13:29 | CON ---
Date of Consultation: 07/17/2021 Reason For Consultation: Elevated troponin. History Of Present Illness: This is an 81-year-old male, who was admitted to the hospital with COVID pneumonia and respiratory failure due to that. He denies having any chest pain, but he is short of breath with cough. Blood work showed elevated troponin, and hence I was consulted. Troponin peaked at a level of 2 and it is trending down. The patient is known to have history of coronary artery dis ease as per his report and hypertension, diabetes, hypothyroidism. Again, at the present time he is chest pain-free. Past Medical History: As outlined above in the HPI. Medications: Refer to reconciliation sheet for detailed list. Allergies: NO KNOWN DRUG ALLERGIES. Family History: No premature coronary artery disease or cancer. Social History: Does not smoke or drink. Does not use any drugs. Review of Systems: All systems reviewed and they were negative except mentioned in the HPI. Physical Examination: Vital Signs: Temperature is 100.3, pulse 89, breathing at 20, blood pressure 170/83, saturating 94%. General: Pleasant elderly male, in no distress. Head and Neck: Pupils are equal, reactive to light. Intact eye movements. No JVD. No cervical lym phadenopathy. Neck: Supple. Thyroid is not enlarged. Lungs: Clear to auscultation bilaterally. No rhonchi, rales, or crackles. No accessory muscle use. Heart: Irregular. No extra sounds. Abdomen: Soft, nontender. Bowel sounds positive. No organomegaly. No masses or hernia. No rigidi ty or rebound. Extremities: No edema, clubbing, or cyanosis. Intact pulses. Skin: No rash noted. Neurologic: Alert, awake, oriented x3. No acute focal deficits appreciated. Investigations: Creatinine 1.56. Troponin 1.43, down from 2.67. EKG without acute specific abnorma lities. Assessment And Recommendations: Elevated troponin suggestive of non-ST elevation myocardial infarcti on, which could be all due to COVID and demand ischemia. The patient has multiple risk factors inclu ding coronary artery disease. Start the patient on anticoagulation with Lovenox 1 mg/kg subcutaneous q.12 hours and please obtain an echocardiogram on him and once his condition is stable, recommend a Lexiscan nuclear stress test to further evaluate the need for coronary angiogram. I will be monitori ng the patient with you. Thank you for the consult. ELISE Voice ID: [id number] Report ID: [id number]
[2021-07-17 14:23] LABS: Urine Appearance CLOUDY (Clear); Urine Bilirubin NEGATIVE (Negative); Urine Blood 1+ (Negative); Urine Color YELLOW (Yellow); Urine Glucose NEGATIVE (Negative); Urine Protein 3+ (Negative); Urine Urobilinogen 0.2 mg/dL (0.2-1.0)
[2021-07-17 14:28] LABS: Urine Microscopic Reflex ORDER UMIC
[2021-07-17 14:36] LABS: Urine Amorphous Sediment 2+ /HPF (NONE SEEN); Urine Bacteria <20 /HPF (NONE SEEN); Urine RBC NONE SEEN /HPF (NONE SEEN)
[2021-07-17] MEDS: GABAPENTIN 400 MG CAP PO SCH (20:50)
[2021-07-17] MEDS: APIXABAN 5 MG TABLET PO SCH (20:50)
[2021-07-17] MEDS: METHYLPREDNISOLONE 40 MG INJ IV SCH (20:50)
[2021-07-17] MEDS ORDERED: METHYLPRED NA SUC 40 MG in NA CHLORIDE 0.9% 100 ML IV SCH (21:00)
[2021-07-18 04:23] LABS: Absolute Lymphocytes (CBC) 0.4 K/uL (0.7-4.9); Basophils % 0.2 % (0-1.3); Hematocrit 32.6 % (39.6-49.0); Lymphocytes % 8.8 % (15.3-44.8); MPV 8.7 fL (7.6-11.3); RBC Red Blood Cell Count 3.57 M/uL (4.33-5.43)
[2021-07-18] MEDS: NA CHLORIDE 0.9% 1,000 ML IV SCH ×2 (04:41→14:04)
[2021-07-18 04:51] LABS: Albumin 2.4 g/dL (3.4-5.0); Bilirubin Total 0.4 mg/dL (0.2-1.0); Ferritin 619.2 ng/mL (26-388); Potassium 3.9 mmol/L (3.5-5.1); Protein, Total 5.9 g/dL (6.4-8.2); Thyroid Stimulating Hormone 0.469 uIU/mL (0.360-3.740)
[2021-07-18] MEDS: carvediloL 3.125 MG TAB PO SCH ×2 (06:00→18:00)
[2021-07-18] MEDS: LEVOTHYROXINE SOD 0.025 MG TAB PO SCH (06:07)
--- NOTE | 2021-07-18 06:23 | P.PN ---
Subjective Date of Service: 07/18/21 Primary Care Provider: Dr. Malin Chief Complaint: UTI, Covid Subjective: Improving (Currently down to 4 to 4.5 L) Physical Examination - Vital Signs Temperature: 97.6 F Blood Pressure: 145/73 Pulse: 67 Respirations: 18 Pulse Ox (%): 93 - Physical Exam Other Physical/Emotional Findings: Lives at home with family Assessment & Plan Discharge Plan: Home Plan to discharge in: 24 Hours Physician Review Additional Text: COVID: positive CXR: COMPARISON: Chest Single View dated 10/24/2018; Chest Single View dated 07/20/2018; Chest Single View dated 12/27/2016; Chest Single View dated 12/25/2016 FINDINGS: Portable technique limits examination quality. Mild bilateral interstitial lung opacities are present which may represent pulmonary edema. The heart is moderately enlarged. No displaced fractures.Sternotomy wires present. IMPRESSION: Mild CHF suspected. Physical Exam: GENERAL: Patient alert, cooperative VITAL SIGNS: Reviewed HEENT: Neck supple LUNGS: Clear to auscultation. No crackles or wheezes are heard. Currently on 4 L per nasal cannula HEART: Regular rate and rhythm, no appreciable gallops, rubs, murmurs or extra heart sounds ABDOMEN: Soft, nontender, and nondistended. Positive bowel sounds. No hepatosplenomegaly was noted. EXTREMITIES: Without any cyanosis, clubbing, rash, lesions or peripheral edema. NEUROLOGIC: The patient is oriented to person, place and time. Strength and sensation are grossly intact. Face is symmetric. SKIN: Normal color, turgor and temperature. No ulcerations or rashes noted. Impression: Dyspnea secondary to bilateral Covid pneumonia with hypoxia Elevated troponin likely ischemic demand versus NSTEMI Hypertension Hyperlipidemia BPH Diabetes mellitus type 2 with hyperglycemia Plan: Dyspnea secondary to bilateral Covid pneumonia with hypoxia: Patient currently on 4 L per nasal cannula. Continue with IV steroids and supplementation. Continue to wean off to maintain sats above 90%. Will monitor closely. Continue to monitor CRP and ferritin. Recheck chest x-ray tomorrow. Continue with pulmonology recommendation. Encourage incentive spirometer. Possible home as early as tomorrow with home oxygen. Elevated troponin likely ischemic demand versus NSTEMI: Will discuss with cardiology. Will order echocardiogram to further evaluate. Patient would benefit with cardiac stress test as an outpatient or once medically stable. Hypertension: Continue aspirin 81 mg daily, carvedilol 3.25 mg 1 pill twice daily. Hyperlipidemia: Continue Crestor 40 mg daily BPH: Continue Flomax 0.4 mg daily Diabetes mellitus type 2 with hyperglycemia: Continue Accu-Cheks and sliding scale. Hemoglobin A1c 6.2. Patient may require medication at discharge. Code Status: Full Code DVT prophylaxis: Lovenox Advanced Care Planning-30 minutes: Home at discharge Time Spent Managing Pts Care (In Minutes): 55
[2021-07-18] MEDS: INSULIN -REGULAR HUMAN 50 UNIT/0.5 ML ML SQ SCH ×4 (08:34→20:50)
[2021-07-18] MEDS: ASCORBIC ACID 500 MG TABLET PO SCH (08:35)
[2021-07-18] MEDS: ROSUVASTATIN 10 MG TAB PO SCH (08:35)
[2021-07-18] MEDS: TAMSULOSIN 0.4 MG SR CAP PO SCH (08:35)
[2021-07-18] MEDS: AMLODIPINE 10 MG TAB PO SCH (08:35)
[2021-07-18] MEDS: ZINC SULFATE 220 MG CAP PO SCH (08:35)
[2021-07-18] MEDS: GABAPENTIN 400 MG CAP PO SCH ×2 (08:36→20:50)
[2021-07-18] MEDS: METHYLPREDNISOLONE 40 MG INJ IV SCH ×2 (08:36→20:50)
[2021-07-18] MEDS: CEFTRIAXONE 1 GM/NS 50 ML 1 GM/50 ML BAG IV SCH (08:36)
[2021-07-18] MEDS: APIXABAN 5 MG TABLET PO SCH ×2 (08:36→20:50)
[2021-07-18] MEDS: TICAGRELOR 90 MG TABLET PO SCH (08:41)
--- NOTE | 2021-07-18 12:18 | P.CNS ---
Date of Consult: 07/18/21 Reason for Consult: Coronavirus pneumonia Primary Care Provider: Dr. Malin Chief Complaint: UTI, Covid History of Present Illness: Patient is 81 years of age admitted with coronavirus pneumonia Allergies No Known Allergies Allergy (Verified 10/24/18 14:42) Home Medications: Aspirin Chewable [Aspirin Chewable*] 81 mg PO DAILY 12/20/16 Gabapentin [Neurontin*] 400 mg PO BID 07/20/18 Levothyroxine [Synthroid*] 0.025 mg PO [id number] 07/20/18 Rosuvastatin [Crestor*] 40 mg PO DAILY 07/20/18 carvediloL [Coreg*] 3.125 mg PO BID 07/20/18 Tamsulosin HCl 0.4 mg PO DAILY 10/24/18 Cefdinir [Cefdinir*] 300 mg PO BID #6 cap 10/27/18 - Past Medical/Surgical History Diabetic: Yes -: HTN -: DM-2 -: high cholesterol -: colon cancer -: hypothyroidism -: kidney disease -: R MYRANDA -: QUADRUPLE BIPASS (1999) -: left hip replacement -: colectomy Psychosocial/ Personal History: Retired, lives at home with family. - Social History Alcohol use: No CD- Drugs: No Caffeine use: Yes Place of Residence: Home Review of Systems is unable to be obtained Physical Examination Temp Pulse Resp BP Pulse Ox 97.4 F 65 26 H 140/81 92 07/18/21 08:00 07/18/21 08:00 07/18/21 08:00 07/18/21 08:00 07/18/21 08:00 General: Alert, Cooperative - Problems (1) COVID-19 Current Visit: Yes Status: Acute Plan: Patient is 81 years of age admitted with presumed mild coronavirus infection patient is on 4 L of nasal cannula oxygen currently will not qualify for Barcitinib cultures are negative vital signs stable renal function improving patient is on steroids possible discharge in the morning
[2021-07-19 03:53] LABS: Absolute Lymphocytes (CBC) 0.4 K/uL (0.7-4.9); Basophils % 1.7 % (0-1.3); Hematocrit 32.3 % (39.6-49.0); Lymphocytes % 5.8 % (15.3-44.8); MPV 9.3 fL (7.6-11.3); RBC Red Blood Cell Count 3.49 M/uL (4.33-5.43)
[2021-07-19 04:39] LABS: Albumin 2.3 g/dL (3.4-5.0); Bilirubin Total 0.2 mg/dL (0.2-1.0); C-Reactive Protein 78.7 mg/L (<3.00); Potassium 3.9 mmol/L (3.5-5.1); Protein, Total 5.7 g/dL (6.4-8.2)
[2021-07-19] MEDS: LEVOTHYROXINE SOD 0.025 MG TAB PO SCH (05:42)
[2021-07-19] MEDS: carvediloL 3.125 MG TAB PO SCH ×2 (06:00→18:00)
--- NOTE | 2021-07-19 06:24 | P.PN ---
Subjective Date of Service: 07/19/21 Primary Care Provider: Dr. Malin Chief Complaint: UTI, Covid Subjective: Improving, Doing well Physical Examination - Vital Signs Temperature: 97.1 F Blood Pressure: 153/77 Pulse: 65 Respirations: 16 Pulse Ox (%): 91 - Physical Exam Other Physical/Emotional Findings: Lives at home with family Assessment & Plan Discharge Plan: Home Plan to discharge in: 72 Hours Physician Review Additional Text: COVID: positive CXR: COMPARISON: Chest Single View dated 10/24/2018; Chest Single View dated 07/20/2018; Chest Single View dated 12/27/2016; Chest Single View dated 12/25/2016 FINDINGS: Portable technique limits examination quality. Mild bilateral interstitial lung opacities are present which may represent pulmonary edema. The heart is moderately enlarged. No displaced fractures.Sternotomy wires present. IMPRESSION: Mild CHF suspected. Renal US: COMPARISON: Renal Ultrasound-Complete dated 07/21/2018 FINDINGS: The right kidney measures 9.8 x 5.6 x 4.1 cm. The left kidney measures 9.0 x 5.4 x 4.7 cm. Cortical thickness is normal. Echogenicity is slightly increased. No hydronephrosis or suspicious renal mass. A 14 millimeter cyst is present in the lower right kidney. A 2.3 cm cyst is present in the left kidney. No bladder wall thickening or mass. No intraluminal stone or mass. IMPRESSION: No hydronephrosis or suspicious renal mass. Increased cortical echogenicity is present consistent with medical renal disease. Body habitus artifact may contribute to this as well. Small bilateral renal cysts. Physical Exam: GENERAL: Patient alert, cooperative VITAL SIGNS: Reviewed HEENT: Neck supple LUNGS: Clear to auscultation. No crackles or wheezes are heard. Currently on 4 L per nasal cannula HEART: Regular rate and rhythm, no appreciable gallops, rubs, murmurs or extra heart sounds ABDOMEN: Soft, nontender, and nondistended. Positive bowel sounds. No hepatosplenomegaly was noted. EXTREMITIES: Without any cyanosis, clubbing, rash, lesions or peripheral edema. NEUROLOGIC: The patient is oriented to person, place and time. Strength and sensation are grossly intact. Face is symmetric. SKIN: Normal color, turgor and temperature. No ulcerations or rashes noted. Impression: Dyspnea secondary to bilateral Covid pneumonia with hypoxia Elevated troponin likely ischemic demand versus NSTEMI Hypertension Hyperlipidemia BPH Diabetes mellitus type 2 with hyperglycemia Acute on chronic renal disease stage III Plan: Dyspnea secondary to bilateral Covid pneumonia with hypoxia: Patient remained stable on 4 L per nasal cannula. Continue with IV steroids and supplementation. Continue to wean off to maintain sats above 90%. Will monitor closely. Continue to monitor CRP and ferritin. Recheck chest x-ray tomorrow. Continue with pulmonology recommendation. Encourage incentive spirometer. 10 you wean off oxygen. Elevated troponin likely ischemic demand versus NSTEMI: Echo pending. Patient would benefit with cardiac stress test as an outpatient or once medically stable. Hypertension: Continue aspirin 81 mg daily, carvedilol 3.25 mg 1 pill twice da ge. Hyperlipidemia: Continue Crestor 40 mg daily BPH: Continue Flomax 0.4 mg daily Diabetes mellitus type 2 with hyperglycemia: Continue Accu-Cheks and sliding scale. Hemoglobin A1c 6.2. Patient may require medication at discharge. Acute on chronic renal disease stage III: Will start IV fluids. Will check renal ultrasound, nephrology consulted. Code Status: Full Code DVT prophylaxis: Lovenox Advanced Care Planning-30 minutes: Home at discharge Time Spent Managing Pts Care (In Minutes): 55
--- NOTE | 2021-07-19 07:18 | RAD REPORT ---
EXAM DESCRIPTION: US - Renal Ultrasound-Complete - 07/19/2021 6:56 am CLINICAL HISTORY: suspect acute/chronic renal disease COMPARISON: Renal Ultrasound-Complete dated 07/21/2018 FINDINGS: The right kidney measures 9.8 x 5.6 x 4.1 cm. The left kidney measures 9.0 x 5.4 x 4.7 cm . Cortical thickness is normal. Echogenicity is slightly increased. No hydronephrosis or suspicious r enal mass. A 14 millimeter cyst is present in the lower right kidney. A 2.3 cm cyst is present in the left kidney. No bladder wall thickening or mass. No intraluminal stone or mass. IMPRESSION: No hydronephrosis or suspicious renal mass. Increased cortical echogenicity is present consistent with medical renal disease. Body habitus artifa ct may contribute to this as well. Small bilateral renal cysts.
[2021-07-19] MEDS: INSULIN -REGULAR HUMAN 50 UNIT/0.5 ML ML SQ SCH ×4 (07:30→20:52)
[2021-07-19] MEDS: ROSUVASTATIN 10 MG TAB PO SCH (09:49)
[2021-07-19] MEDS: AMLODIPINE 10 MG TAB PO SCH (09:50)
[2021-07-19] MEDS: ASCORBIC ACID 500 MG TABLET PO SCH (09:50)
[2021-07-19] MEDS: APIXABAN 5 MG TABLET PO SCH ×2 (09:50→20:51)
[2021-07-19] MEDS: TAMSULOSIN 0.4 MG SR CAP PO SCH (09:50)
[2021-07-19] MEDS: GABAPENTIN 400 MG CAP PO SCH ×2 (09:50→20:51)
[2021-07-19] MEDS: ZINC SULFATE 220 MG CAP PO SCH (09:50)
[2021-07-19] MEDS: METHYLPREDNISOLONE 40 MG INJ IV SCH ×2 (09:51→20:51)
[2021-07-19] MEDS: NACHLORIDE 0.45% 1,000 ML IV SCH ×2 (09:51→20:51)
--- NOTE | 2021-07-19 14:43 | CON ---
Date of Consultation: 07/19/2021 Reason For Consultation: Elevated BUN and creatinine. History Of Present Illness: This is a pleasant 81-year-old gentleman with significant past medical history of diabetes complicated with neuropathy, no retinopathy, hypertension, colon cancer, hypothyroidism, hyperlipidemia, the patient known to have chronic kidney disease. 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 The patient came to the hospital complaining from dysuria with decreased intake. Upon arrival to the hospital, found to have elevation in creatinine. For that reason, we have been consulted. The patient admits that he had been taking Advil 2-3 tablets for the whole year. The patient denied any fever or chills. Primary workup for the patient shows creatinine of 1.8 with GFR 35. Reviewing the record for the patient back in 2019, creatinine 1.6, GFR of 42 in April 2019. Past Medical History: Includes; 1. Diabetes complicated with neuropathy, no retinopathy. 2. Hypertension. 3. Hyperlipidemia. 4. Chronic kidney disease, baseline creatinine back in April 2019 of 1.6 with GFR of 42. Past Surgical History: Includes; 1. Colectomy. 2. Hip replacement. 3. Shoulder surgery. Social History: Denied smoking, denied drinking, denied drugs abuse. Home Medications: Include; 1. Advil. 2. Aspirin. 3. Gabapentin. 4. Levothyroxine. 5. tylenol 6. Carvedilol. 7. Flomax. 8. advil Allergies: NO KNOWN DRUGS ALLERGY. Review of Systems: Head and Neck: No red eye. No ear pain. GI: Decreased intake. : No polyuria. No dysuria. No hematuria. [employer]: Not applicable. Respiratory: Has cough. Cardiovascular: No chest pain. Endocrine: No polydipsia. Skin: No rash. Physical Examination: Vital Signs: When I saw the patient; blood pressure 153/77, pulse of 65, afebrile. Chest: Clear to auscultation. Heart: S1, S2. Regular. Abdomen: Soft, nontender. Extremity: No edema. Neuro: Alert. No focality. Laboratory Data: Upon admission to the hospital on the , creatinine 1.8, GFR of 36. Latest lab data; sodium 143, potassium 3.9, bicarb 19, BUN 46, creatinine 1.8, GFR of 35, calcium 7.4, ferritin 845, albumin 2.3. WBC 6, H and H 10.8/32.3. Urinalysis negative for infection, +3 protein. The patient had serology workup back in 2018, all negative. There had quantification for the PC ratio back in 2018 with 2.3. Assessment And Plan: 1. Acute kidney injury on chronic kidney disease, mostly secondary to prerenal. I am going to go ahead and start the patient on gentle hydration and we will monitor the patient. We will send for renal ultrasound and we will follow up. 2. Chronic kidney disease secondary to diabetes nephropathy with possible nephrotic range of proteinuria with acute kidney injury. As above, I am going to go ahead and start the patient on hydration. We will send for renal ultrasound with the presence of nephrotic range of proteinuria. The patient had full workup of serology and was negative. I am going to go ahead and send for serum protein electrophoresis given the presence of the anemia and we will follow up the patient closely. 3. Hypertension, controlled, not optimal. The patient was started on amlodipine. I am going to start the patient on low dose of LEONEL inhibitor. 4. Urinary tract infection. We will follow up culture. 5. Acidosis marginal secondary to renal failure. We will start the patient on hydration. We will follow up the lab. Time spent examining the patient [id number] placing order discussing with the patient reviewing data discussing the case with all of our subspecialty including hospitalist 55 minutes CK Voice ID: [id number] Report ID: [id number] BIA
[2021-07-20] MEDS ORDERED: FUROSEMIDE 40 MG/4 ML VIAL IV ONE (02:05)
[2021-07-20 04:22] LABS: Absolute Lymphocytes (CBC) 0.4 K/uL (0.7-4.9); Hematocrit 30.6 % (39.6-49.0); Lymphocytes % 3.8 % (15.3-44.8); MPV 9.2 fL (7.6-11.3); RBC Red Blood Cell Count 3.34 M/uL (4.33-5.43)
[2021-07-20 05:05] LABS: Albumin 2.6 g/dL (3.4-5.0); Bilirubin Total 0.3 mg/dL (0.2-1.0); Ferritin 922.3 ng/mL (26-388); Folic Acid, (Folate) 14.7 ng/mL (3.1-17.5); Magnesium 2.2 mg/dL (1.8-2.4); Phosphorus 2.9 mg/dL (2.5-4.9); Potassium 3.8 mmol/L (3.5-5.1); Protein, Total 6.2 g/dL (6.4-8.2); Thyroid Stimulating Hormone 0.229 uIU/mL (0.360-3.740)
[2021-07-20 05:10] LABS: Blood Morphology Comment NOT SEEN (NOT SEEN); Platelet Estimate DECR
[2021-07-20] MEDS: LEVOTHYROXINE SOD 0.025 MG TAB PO SCH (05:44)
[2021-07-20] MEDS: carvediloL 3.125 MG TAB PO SCH (06:00)
--- NOTE | 2021-07-20 06:16 | P.PN ---
Subjective Date of Service: 07/20/21 Primary Care Provider: Dr. Malin Chief Complaint: UTI, Covid Subjective: Other (Patient requiring more oxygen overnight. Patient appears to be overloaded. Patient given Lasix and IV fluids discontinued) Physical Examination - Vital Signs Temperature: 98.1 F Blood Pressure: 153/76 Pulse: 66 Respirations: 24 Pulse Ox (%): 94 - Physical Exam Other Physical/Emotional Findings: Lives at home with family - Studies Microbiology Data (last 24 hrs): 07/16/21 18:49 Clean Catch Urine [place] Count - Final BETWEEN 10,000 & 100,000 CFU/ML 07/16/21 18:49 Clean Catch Urine - Final MIXED JENNIFER. Assessment & Plan Discharge Plan: Home Plan to discharge in: Greater than 2 days Physician Review Additional Text: COVID: positive CXR: COMPARISON: Chest Single View dated 10/24/2018; Chest Single View dated 07/20/2018; Chest Single View dated 12/27/2016; Chest Single View dated 12/25/2016 FINDINGS: Portable technique limits examination quality. Mild bilateral interstitial lung opacities are present which may represent pulmonary edema. The heart is moderately enlarged. No displaced fractures.Sternotomy wires present. IMPRESSION: Mild CHF suspected. Renal US: COMPARISON: Renal Ultrasound-Complete dated 07/21/2018 FINDINGS: The right kidney measures 9.8 x 5.6 x 4.1 cm. The left kidney measures 9.0 x 5.4 x 4.7 cm. Cortical thickness is normal. Echogenicity is slightly increased. No hydronephrosis or suspicious renal mass. A 14 millimeter cyst is present in the lower right kidney. A 2.3 cm cyst is present in the left kidney. No bladder wall thickening or mass. No intraluminal stone or mass. IMPRESSION: No hydronephrosis or suspicious renal mass. Increased cortical echogenicity is present consistent with medical renal disease . Body habitus artifact may contribute to this as well. Small bilateral renal cysts. ECHO: MEASUREMENTS (cm) DIASTOLIC (NORMALS) SYSTOLIC (NORMALS) IVSd 1.2 (0.6-1.2) LA Diam 3.8 (1.9-4.0) LVEF 60% LVIDd 5.9 (3.5-5.7) LVIDs 1.0 (2.0-3.5) %FS 33% LVPWd 1.3 (0.6-1.2) Ao Diam 3.5 (2.0-3.7) 2 DIMENSIONAL ASSESSMENT: RIGHT ATRIUM: NORMAL LEFT ATRIUM: NORMAL RIGHT VENTRICLE: NORMAL LEFT VENTRICLE: LEFT VENTRICULAR HYPERTROPHY TRICUSPID VALVE: NORMAL MITRAL VALVE: NORMAL PULMONIC VALVE: NORMAL AORTIC VALVE: NORMAL PERICARDIAL EFFUSION: NONE AORTIC ROOT: NORMAL LEFT VENTRICULAR WALL MOTION: DIASTOLIC DYSFUNCTION DOPPLER/COLOR FLOW: DECREASED LEFT VENTRICULAR COMPLIANCE COMMENTS: DIASTOLIC DYSFUNCTION. DECREASED LEFT VENTRICULAR COMPLIANCE. NORMAL EJECTION FRACTION. LEFT VENTRICULAR HYPERTROPHY. NO EFFUSION. Follow up CXR 07/20/2021: COMPARISON: No prior films are available at this time for comparison. Only report is available FINDINGS: Single view of the chest was obtained portable. No prior films are available for comparison. The heart is prominent. Thoracic aorta demonstrate intimal calcification. 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 No significant pleural effusion. Increased interstitial densities could correspond to pulmonary venous congestion and/or the possibility of viral pneumonia/Covid 19 pneumonia could be considered. The rest of the soft tissue and bony structures demonstrate to be unremarkable. IMPRESSION: Increased interstitial densities could correspond to pulmonary venous congestion and/or the possibility of viral pneumonia/Covid pneumonia could be considered. Physical Exam: GENERAL: Patient alert, cooperative VITAL SIGNS: Reviewed HEENT: Neck supple LUNGS: Currently on 10 L per nasal cannula. HEART: Regular rate and rhythm, no appreciable gallops, rubs, murmurs or extra heart sounds ABDOMEN: Soft, nontender, and nondistended. Positive bowel sounds. No hepatosplenomegaly was noted. EXTREMITIES: Without any cyanosis, clubbing, rash, lesions or peripheral edema. NEUROLOGIC: The patient is oriented to person, place and time. Strength and sensation are grossly intact. Face is symmetric. SKIN: Normal color, turgor and temperature. No ulcerations or rashes noted. Impression: Dyspnea secondary to bilateral Covid pneumonia with hypoxia Elevated troponin likely ischemic demand versus NSTEMI Hypertension Hyperlipidemia BPH Diabetes mellitus type 2 with hyperglycemia Acute on chronic renal disease stage III Hypothyroidism Diabetic neuropathy Plan: Dyspnea secondary to bilateral Covid pneumonia with hypoxia complicated with acute on chronic diastolic CHF: Patient appears to be overloaded. IV fluids discontinued. Patient given IV Lasix this morning. Case discussed with nephrology. Nephrology to adjust diuretic therapy. Continue to wean off oxygen to maintain sats above 90%. Continue IV steroids and supplementation. Patient also on baricitinib. Will monitor liver function tests on medication. Await further recommendations from pulmonology. Elevated troponin likely ischemic demand versus NSTEMI: Echo reveals diastolic dysfunction. Normal ejection fraction noted. No effusion noted. Patient would benefit with cardiac stress test as an outpatient.. Hypertension: Continue Norvasc 10 mg daily, carvedilol 3.25 mg 1 pill twice daily. Hyperlipidemia: Continue Crestor 40 mg daily BPH: Continue Flomax 0.4 mg daily Diabetes mellitus type 2 with hyperglycemia: Continue Accu-Cheks and sliding scale. Hemoglobin A1c 6.2. Patient started on Lantus 5 units subcu to maintain adequate blood sugar control. Acute on chronic renal disease stage III: IV fluids discontinued. Patient given IV Lasix. Lasix will be continued. Nephrology added sodium bicarbonate. Nephrology continues to adjust medication. Hypothyroidism: Continue with levothyroxine 25 mcg daily Diabetic neuropathy: Continue gabapentin. Hold if with increase sedation. Code Status: Full Code DVT prophylaxis: Heparin Advanced Care Planning-30 minutes: Home at discharge Time Spent Managing Pts Care (In Minutes): 55
[2021-07-20] MEDS: INSULIN -REGULAR HUMAN 50 UNIT/0.5 ML ML SQ SCH ×4 (07:30→20:26)
--- NOTE | 2021-07-20 07:37 | PN ---
Date of Progress Note: 07/18/2021 The patient was seen by Dr. Vallejo. He was admitted to Dr. Saldaña. He came in with COVID, elevated troponin, most likely demand ischemia. The patient's last blood pressure was 148/75, respiratory rat e of 26, his blood glucose was 291, he was afebrile, O2 saturation was 93% on nasal cannula. Last cr eatinine was 1.87. His D-dimer has decreased. Echocardiogram remains pending. We will see what storm t shows. We will plan for a Lexiscan later on down the road. No change in medical therapy for now. NB/MODL Voice ID: [id number] Report ID: [id number]
[2021-07-20] MEDS: AMLODIPINE 10 MG TAB PO SCH (09:12)
[2021-07-20] MEDS: ASCORBIC ACID 500 MG TABLET PO SCH ×2 (09:12→20:26)
[2021-07-20] MEDS: GABAPENTIN 400 MG CAP PO SCH ×2 (09:12→20:27)
[2021-07-20] MEDS: TAMSULOSIN 0.4 MG SR CAP PO SCH (09:12)
[2021-07-20] MEDS: APIXABAN 5 MG TABLET PO SCH (09:12)
[2021-07-20] MEDS: METHYLPREDNISOLONE 40 MG INJ IV SCH ×2 (09:13→20:27)
[2021-07-20] MEDS: ROSUVASTATIN 10 MG TAB PO SCH (09:13)
[2021-07-20] MEDS: ZINC SULFATE 220 MG CAP PO SCH (09:13)
[2021-07-20] MEDS ORDERED: D50W 25 GM/50 ML SYRINGE IV PRN (10:57)
[2021-07-20] MEDS ORDERED: GLUCAGON 1 MG/VIAL IM PRN (10:57)
--- NOTE | 2021-07-20 10:57 | ECHO ---
HEIGHT: 5 ft 9 in WEIGHT: 194 lb 8 oz DATE OF STUDY: 07/19/[address]: Yosef Saldaña DO 2-DIMENSIONAL: YES M.MODE: YES DOPPLER: YES COLOR FLOW: YES TDS: PORTABLE: DEFINITY: BUBBLE STUDY: DIAGNOSIS: ELEVATED TROPONIN, COVID CARDIAC HISTORY: CATHERIZATION: YES SURGERY: YES PROSTHETIC VALVE: NO PACEMAKER: NO MEASUREMENTS (cm) DIASTOLIC (NORMALS) SYSTOLIC (NORMALS) IVSd 1.2 (0.6-1.2) LA Diam 3.8 (1.9-4.0) LVEF 60% LVIDd 5.9 (3.5-5.7) LVIDs 1.0 (2.0-3.5) %FS 33% LVPWd 1.3 (0.6-1.2) Ao Diam 3.5 (2.0-3.7) 2 DIMENSIONAL ASSESSMENT: RIGHT ATRIUM: NORMAL LEFT ATRIUM: NORMAL RIGHT VENTRICLE: NORMAL LEFT VENTRICLE: LEFT VENTRICULAR HYPERTROPHY TRICUSPID VALVE: NORMAL MITRAL VALVE: NORMAL PULMONIC VALVE: NORMAL AORTIC VALVE: NORMAL PERICARDIAL EFFUSION: NONE AORTIC ROOT: NORMAL LEFT VENTRICULAR WALL MOTION: DIASTOLIC DYSFUNCTION DOPPLER/COLOR FLOW: DECREASED LEFT VENTRICULAR COMPLIANCE COMMENTS: DIASTOLIC DYSFUNCTION. DECREASED LEFT VENTRICULAR COMPLIANCE. NORMAL EJECTION FRACTION. LEFT VENTRICULAR HYPERTROPHY. NO EFFUSION. TECHNOLOGIST: SLIM CAICEDO
--- NOTE | 2021-07-20 11:37 | PN ---
Date of Progress Note: 07/20/2021 Subjective: The patient was admitted with acute kidney injury secondary to nonsteroidal, Advil intake. The patient over the night developed some shortness of breath. Chest x-ray showed over volume. Physical Examination: Vital Signs: Blood pressure 147/68, pulse of 71, afebrile. The patient still has good voiding. Chest: Crackles bilateral. Heart: S1, S2. Systolic murmur. Abdomen: Soft, nontender. Extremity: Trace edema. Neurologic: Alert. No focality. Laboratory Data: WBC 10.8, H and H 10.4/30.6. Sodium 142, potassium 3.8, bicarb 17, BUN 53, creatinine 2, GFR of 31, blood sugar above 200, calcium 7.5, phosphorus 2.9, magnesium 2.2. Ferritin 922. Serum protein electrophoresis is still pending. PTH 217. Vitamin D is still pending. Urinalysis negative for infection. PC ratio is still pending. Renal ultrasound, .05/30, echogenic with renal cyst on the left 2.3 cm and 1.4 cm on the right kidney. Chest x-ray; cardiomegaly with congestion. Current Medications: The patient on include Flomax, Eliquis, amlodipine 10 mg, carvedilol, rosuvastatin, Lasix was received yesterday, zinc sulfate, Zofran, Solu-Medrol, vitamin C. Assessment And Plan: 1. Acute kidney injury multifactorial secondary to nonsteroidal use/progression of the disease, superimposed with cardiorenal, small size kidney, proteinuric. I am going to go ahead and follow up with PC ratio. We will discontinue IV fluid, start the patient on Lasix 40 daily, and we will monitor the patient closely. 2. Hypertension, controlled, not optimal. We started the patient on the Lasix. We will follow up. 3. Acidosis non-anion gap metabolic acidosis secondary to renal failure. I am going to start the patient on sodium bicarb. 4. Secondary hyperparathyroidism with hypocalcemia. We will start the patient on calcitriol and we will follow up on vitamin D. 5. Anemia of chronic kidney disease with chronic kidney disease and worsening kidney function with significant proteinuria. We will follow up on serum protein electrophoresis. 6. Respiratory failure, multifactorial, secondary to over volume/COVID. Follow up with Pulmonary. We will try to establish better volume control with diuresis and we will follow up. 7. Proteinuria. Waiting for quantification. Time spent examining the patient [id number] placing order reviewing data including radiology and lab other consult discussing the case with the patient discussed the case with the steam and gas turbine assembler including nursing discussed with all of our subspecialty and hospitalist 35-minute NATASHA/GABRIELLA Voice ID: [id number] Report ID: [id number] BIA
--- NOTE | 2021-07-20 11:41 | P.PN ---
Subjective Date of Service: 07/20/21 Primary Care Provider: Dr. Malin Chief Complaint: REsp failure Subjective: Worsening O2 requirements have increased unresponisve Review of Systems is unable to be obtained Physical Examination - Vital Signs Temperature: 98.4 F Blood Pressure: 147/68 Pulse: 71 Respirations: 28 Pulse Ox (%): 88 - Physical Exam General: Unresponsive Other Physical/Emotional Findings: Lives at home with family - Studies Microbiology Data (last 24 hrs): 07/16/21 18:49 Clean Catch Urine [place] Count - Final BETWEEN 10,000 & 100,000 CFU/ML 07/16/21 18:49 Clean Catch Urine - Final MIXED JENNIFER. Assessment & Plan - Problems (Diagnosis) (1) COVID-19 Current Visit: Yes Status: Acute Plan: Worse change to bipap cont pulse ox monitoring Barcitinib ordered cond worsened/ on lasix
[2021-07-20] MEDS: CALCITROL 0.25 MCG CAP PO SCH (12:00)
[2021-07-20] MEDS: BARICITINIB 2 MG TABLET PO SCH (12:45)
--- NOTE | 2021-07-20 13:43 | RAD REPORT ---
EXAM DESCRIPTION: RAD - Chest Single View - 07/20/2021 1:38 am CLINICAL HISTORY: 81 years, Male, Respiratory distress COMPARISON: No prior films are available at this time for comparison. Only report is available FINDINGS: Single view of the chest was obtained portable. No prior films are available for compariso n. The heart is prominent. Thoracic aorta demonstrate intimal calcification. Sternotomy wires and p ericardiac clips correspond to previous CABG. No significant pleural effusion. Increased interstitial densities could correspond to pulmonary venous congestion and/or the possibility of viral pneumonia/ Covid 19 pneumonia could be considered. The rest of the soft tissue and bony structures demonstrate to be unremarkable. IMPRESSION: Increased interstitial densities could correspond to pulmonary venous congestion and/or the possibility of viral pneumonia/Covid pneumonia could be considered. Electronically signed by: Sharad Hinojosa MD 07/20/2021 1:50 AM CDT Due to temporary technical issues with the PACS/Fluency reporting system, reports are being signed by the in house radiologists without review as a courtesy to insure prompt reporting. The interpreting radiologist is fully responsible for the content of the report.
[2021-07-20 14:04] LABS: UR PROTEIN 55.4 mg/dL (<11.9); Urine Protein/Creatinine Ratio 0.8 ratio (<0.15)
[2021-07-20] MEDS ORDERED: ENOXAPARIN 40 MG/0.4 ML SQ SCH (17:00)
[2021-07-20 19:15] VITALS: BMI 31.5
[2021-07-20] MEDS: INSULIN GLARGINE 100 UNITS/ML SQ SCH (20:25)
[2021-07-20] MEDS: SODIUM BICARB 325 MG TAB PO SCH (20:26)
[2021-07-20] MEDS: HEPARIN 5000 UNIT/ML 1 ML VIAL SQ SCH (20:27)
[2021-07-21 05:17] LABS: Absolute Lymphocytes (CBC) 0.5 K/uL (0.7-4.9); Basophils % 0.1 % (0-1.3); Hematocrit 31.1 % (39.6-49.0); Lymphocytes % 5.9 % (15.3-44.8); MPV 9.1 fL (7.6-11.3); RBC Red Blood Cell Count 3.41 M/uL (4.33-5.43)
[2021-07-21 05:37] LABS: Albumin 2.6 g/dL (3.4-5.0); Bilirubin Total 0.3 mg/dL (0.2-1.0); Magnesium 2.5 mg/dL (1.8-2.4); Phosphorus 3.4 mg/dL (2.5-4.9); Protein, Total 6.3 g/dL (6.4-8.2)
--- NOTE | 2021-07-21 06:10 | P.PN ---
Subjective Date of Service: 07/21/21 Primary Care Provider: Dr. Malin Chief Complaint: UTI, Covid Subjective: Other (Patient requiring BiPAP) Physical Examination - Vital Signs Temperature: 97.6 F Blood Pressure: 142/67 Pulse: 63 Respirations: 16 Pulse Ox (%): 96 - Physical Exam Other Physical/Emotional Findings: Lives at home with family Assessment & Plan Discharge Plan: Home Plan to discharge in: Greater than 2 days Physician Review Additional Text: COVID: positive CXR: COMPARISON: Chest Single View dated 10/24/2018; Chest Single View dated 07/20/2018; Chest Single View dated 12/27/2016; Chest Single View dated 12/25/2016 FINDINGS: Portable technique limits examination quality. Mild bilateral interstitial lung opacities are present which may represent pulmonary edema. The heart is moderately enlarged. No displaced fractures.Sternotomy wires present. IMPRESSION: Mild CHF suspected. Renal US: COMPARISON: Renal Ultrasound-Complete dated 07/21/2018 FINDINGS: The right kidney measures 9.8 x 5.6 x 4.1 cm. The left kidney measures 9.0 x 5.4 x 4.7 cm. Cortical thickness is normal. Echogenicity is slightly increased. No hydronephrosis or suspicious renal mass. A 14 millimeter cyst is present in the lower right kidney. A 2.3 cm cyst is present in the left kidney. No bladder wall thickening or mass. No intraluminal stone or mass. IMPRESSION: No hydronephrosis or suspicious renal mass. Increased cortical echogenicity is present consistent with medical renal disease. Body habitus artifact may contribute to this as well. Small bilateral renal cysts. ECHO: MEASUREMENTS (cm) DIASTOLIC (NORMALS) SYSTOLIC (NORMALS) IVSd 1.2 (0.6-1.2) LA Diam 3.8 (1.9-4.0) LVEF 60% LVIDd 5.9 (3.5-5.7) LVIDs 1.0 (2.0-3.5) %FS 33% LVPWd 1.3 (0.6-1.2) Ao Diam 3.5 (2.0-3.7) 2 DIMENSIONAL ASSESSMENT: RIGHT ATRIUM: NORMAL LEFT ATRIUM: NORMAL RIGHT VENTRICLE: NORMAL LEFT VENTRICLE: LEFT VENTRICULAR HYPERTROPHY TRICUSPID VALVE: NORMAL MITRAL VALVE: NORMAL PULMONIC VALVE: NORMAL AORTIC VALVE: NORMAL PERICARDIAL EFFUSION: NONE AORTIC ROOT: NORMAL LEFT VENTRICULAR WALL MOTION: DIASTOLIC DYSFUNCTION DOPPLER/COLOR FLOW: DECREASED LEFT VENTRICULAR COMPLIANCE COMMENTS: DIASTOLIC DYSFUNCTION. DECREASED LEFT VENTRICULAR COMPLIANCE. NORMAL EJECTION FRACTION. LEFT VENTRICULAR HYPERTROPHY. NO EFFUSION. Follow up CXR 07/20/2021: COMPARISON: No prior films are available at this time for comparison. Only report is available FINDINGS: Single view of the chest was obtained portable. No prior films are available for comparison. The heart is prominent. Thoracic aorta demonstrate intimal calcification. 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 No significant pleural effusion. Increased interstitial densities could correspond to pulmonary venous congestion and/or the possibility of viral pneumonia/Covid 19 pneumonia could be considered. The rest of the soft tissue and bony structures demonstrate to be unremarkable. IMPRESSION: Increased interstitial densities could correspond to pulmonary venous congestion and/or the possibility of viral pneumonia/Covid pneumonia could be considered. Physical Exam: GENERAL: Patient alert, cooperative VITAL SIGNS: Reviewed HEENT: Neck supple LUNGS: Patient required BiPAP overnight. Currently on 15 L HEART: Regular rate and rhythm, no appreciable gallops, rubs, murmurs or extra heart sounds ABDOMEN: Soft, nontender, and nondistended. Positive bowel sounds. No hepatosplenomegaly was noted. EXTREMITIES: Without any cyanosis, clubbing, rash, lesions or peripheral edema. NEUROLOGIC: The patient is oriented to person, place and time. Strength and sensation are grossly intact. Face is symmetric. SKIN: Normal color, turgor and temperature. No ulcerations or rashes noted. Impression: Dyspnea secondary to bilateral Covid pneumonia with hypoxia Elevated troponin likely ischemic demand versus NSTEMI Hypertension Hyperlipidemia BPH Diabetes mellitus type 2 with hyperglycemia Acute on chronic renal disease stage III with nonanion gap metabolic acidosis Hypothyroidism Diabetic neuropathy Plan: Dyspnea secondary to bilateral Covid pneumonia with hypoxia complicated with acute on chronic diastolic CHF: Patient required BiPAP overnight. Patient now on 15 L. Continue to adjust to maintain sats above 90%. Case discussed at length with nephrology. Nephrology plans to continue IV Lasix. Recheck chest x-ray. Continue with IV steroids, baricitinib and supplementation. Continue monitor closely. Will monitor liver function tests on medication. Await further recommendations from pulmonology. Elevated troponin likely ischemic demand versus NSTEMI: Echo reveals diastolic dysfunction. Normal ejection fraction noted. No effusion noted. Patient would benefit with cardiac stress test as an outpatient.. Hypertension: Continue Norvasc 10 mg daily, carvedilol 3.25 mg 1 pill twice daily. Hyperlipidemia: Continue Crestor 40 mg daily BPH: Continue Flomax 0.4 mg daily Diabetes mellitus type 2 with hyperglycemia: Continue Accu-Cheks and sliding scale. Hemoglobin A1c 6.2. Patient started on Lantus 5 units subcu to maintain adequate blood sugar control. Acute on chronic renal disease stage III with nonanion gap metabolic acidosis: IV fluids discontinued. Continue sodium bicarbonate. Continue Lasix. Nephr ology continues to adjust medication. Hypothyroidism: Continue with levothyroxine 25 mcg daily Diabetic neuropathy: Continue gabapentin. Hold if with increase sedation. Code Status: Full Code DVT prophylaxis: Heparin Advanced Care Planning-30 minutes: Home at discharge Time Spent Managing Pts Care (In Minutes): 55
[2021-07-21] MEDS: LEVOTHYROXINE SOD 0.025 MG TAB PO SCH (06:24)
[2021-07-21] MEDS: HEPARIN 5000 UNIT/ML 1 ML VIAL SQ SCH ×2 (07:52→20:35)
[2021-07-21] MEDS: AMLODIPINE 10 MG TAB PO SCH (08:46)
[2021-07-21] MEDS: ROSUVASTATIN 10 MG TAB PO SCH (08:46)
[2021-07-21] MEDS: ZINC SULFATE 220 MG CAP PO SCH (08:47)
[2021-07-21] MEDS: TAMSULOSIN 0.4 MG SR CAP PO SCH (08:47)
[2021-07-21] MEDS: VITAMIN D 1000 UNIT TAB PO SCH (08:47)
[2021-07-21] MEDS: THIAMINE HCL 100 MG TABLET PO SCH (08:47)
[2021-07-21] MEDS: SODIUM BICARB 325 MG TAB PO SCH ×2 (08:48→20:50)
[2021-07-21] MEDS: METHYLPREDNISOLONE 40 MG INJ IV SCH ×2 (08:48→20:50)
[2021-07-21] MEDS: GABAPENTIN 400 MG CAP PO SCH ×2 (08:48→20:50)
[2021-07-21] MEDS: INSULIN -REGULAR HUMAN 50 UNIT/0.5 ML ML SQ SCH ×4 (08:48→20:50)
[2021-07-21] MEDS: ASCORBIC ACID 500 MG TABLET PO SCH ×3 (08:48→20:51)
[2021-07-21] MEDS: BARICITINIB 2 MG TABLET PO SCH (08:48)
[2021-07-21] MEDS ORDERED: FUROSEMIDE 40 MG/4 ML VIAL IV SCH (09:00)
--- NOTE | 2021-07-21 10:51 | P.PN ---
Subjective Date of Service: 07/21/21 Primary Care Provider: Dr. Malin Chief Complaint: UTI, Covid patient complaining from shortness of breath Subjective: Worsening (Has shortness of breath requiring nonrebreather) Review of Systems 10-point ROS is otherwise unremarkable Respiratory: Cough, Shortness of Breath Cardiovascular: Unremarkable Gastrointestinal: Unremarkable Genitourinary: Unremarkable Musculoskeletal: Unremarkable Neurological: Weakness, Unremarkable Physical Examination - Vital Signs Temperature: 96.5 F Blood Pressure: 158/83 Pulse: 75 Respirations: 20 Pulse Ox (%): 96 (Patient on nonrebreather) - Physical Exam General: Alert, Oriented x3, Cooperative HEENT: Atraumatic Neck: Supple, 2+ carotid pulse no bruit, Without JVD or thyroid abnormality Respiratory: Crackles/rales, Expiratory wheezes Cardiovascular: No edema, Normal S1 S2, Systolic murmur Gastrointestinal: Normal bowel sounds, No ascites, No tenderness, No masses Musculoskeletal: No clubbing Neurological: Normal gait, Normal strength at 5/5 x4 extr, Cranial nerves 3-12 intact, Normal reflexes 2+ Other Physical/Emotional Findings: Lives at home with family - Studies Sodium 143 GFR 33 calcium 8 phosphorus 3.4 magnesium 2.5 WBC 8 H&H 10.6/31.1 Medications List Reviewed: Yes Assessment And Plan Physician Review Additional Text: Current Medications: The patient on include Flomax, Eliquis, amlodipine 10 mg, carvedilol, rosuvastatin, Lasix was received yesterday, zinc sulfate, Zofran, Solu-Medrol, vitamin C. Assessment And Plan: 1. Acute kidney injury multifactorial secondary to nonsteroidal use, superimposed with cardiorenal, small size kidney, proteinuric nonnephrotic over volume, disproportion in the BUN and creatinine: Keep holding IV fluid, start the patient on Lasix 40 daily, Repeat chest x-ray for better evaluation of the fluid status Increase Lasix Mostly the disproportion in the BUN/creatinine secondary to cardiorenal/catabolic state /steroid use and we will monitor the patient closely. 2. Hypertension, controlled, not optimal. We will try to utilize a blood pressure for more diuresis Increase Lasix start the patient on nitroglycerin We will follow up. 3. Acidosis non-anion gap metabolic acidosis secondary to renal failure. Continue sodium bicarb. 4. Secondary hyperparathyroidism with hypocalcemia. Continue the patient on calcitriol and we will follow up on vitamin D. 5. Anemia of chronic kidney disease with chronic kidney disease and worsening kidney function with significant proteinuria. We will follow up on serum protein electrophoresis. 6. Respiratory failure, multifactorial, secondary to over volume/COVID. Follow up with Pulmonary. We will try to establish better volume control with diuresis and we will follow up. Continue follow-up with the primary for COVID treatment 7. Covid pneumonia as by primary Time spent examining the patient [id number] placing order discussing with the patient reviewing data discussing the case with all of our subspecialties including hospitalist 35 minutes
[2021-07-21] MEDS: FUROSEMIDE 40 MG/4 ML VIAL IV SCH (17:25)
[2021-07-21] MEDS: INSULIN GLARGINE 100 UNITS/ML SQ SCH (20:50)
[2021-07-22] MEDS: LEVOTHYROXINE SOD 0.025 MG TAB PO SCH (05:30)
--- NOTE | 2021-07-22 06:31 | P.PN ---
Subjective Date of Service: 07/22/21 Primary Care Provider: Dr. Malin Chief Complaint: UTI, Covid Subjective: Other (Patient currently on nonrebreather) Physical Examination - Vital Signs Temperature: 98.8 F Blood Pressure: 159/75 Pulse: 76 Respirations: 19 Pulse Ox (%): 95 - Physical Exam Other Physical/Emotional Findings: Lives at home with family - Studies Microbiology Data (last 24 hrs): 07/16/21 15:20 Blood - Blood Aerobic Blood Culture - Final No growth in 5 days. 07/16/21 15:20 Blood - Blood Anaerobic Blood Culture - Final No growth in 5 days. 07/16/21 15:31 Blood - Blood Aerobic Blood Culture - Final No growth in 5 days. 07/16/21 15:31 Blood - Blood Anaerobic Blood Culture - Final No growth in 5 days. Medications List Reviewed: Yes Assessment & Plan Discharge Plan: Home Plan to discharge in: Greater than 2 days Physician Review Additional Text: COVID: positive CXR: COMPARISON: Chest Single View dated 10/24/2018; Chest Single View dated 07/20/2018; Chest Single View dated 12/27/2016; Chest Single View dated 12/25/2016 FINDINGS: Portable technique limits examination quality. Mild bilateral interstitial lung opacities are present which may represent pulmonary edema. The heart is moderately enlarged. No displaced fractures.Sternotomy wires present. IMPRESSION: Mild CHF suspected. Renal US: COMPARISON: Renal Ultrasound-Complete dated 07/21/2018 FINDINGS: The right kidney measures 9.8 x 5.6 x 4.1 cm. The left kidney measures 9.0 x 5.4 x 4.7 cm. Cortical thickness is normal. Echogenicity is slightly increased. No hydronephrosis or suspicious renal mass. A 14 millimeter cyst is present in the lower right kidney. A 2.3 cm cyst is present in the left kidney. No bladder wall thickening or mass. No intraluminal stone or mass. IMPRESSION: No hydronephrosis or suspicious renal mass. Increased cortical echogenicity is present consistent with medical renal disease. Body habitus artifact may contribute to this as well. Small bilateral renal cysts. ECHO: MEASUREMENTS (cm) DIASTOLIC (NORMALS) SYSTOLIC (NORMALS) IVSd 1.2 (0.6-1.2) LA Diam 3.8 (1.9-4.0) LVEF 60% LVIDd 5.9 (3.5-5.7) LVIDs 1.0 (2.0-3.5) %FS 33% LVPWd 1.3 (0.6-1.2) Ao Diam 3.5 (2.0-3.7) 2 DIMENSIONAL ASSESSMENT: RIGHT ATRIUM: NORMAL LEFT ATRIUM: NORMAL RIGHT VENTRICLE: NORMAL LEFT VENTRICLE: LEFT VENTRICULAR HYPERTROPHY TRICUSPID VALVE: NORMAL MITRAL VALVE: NORMAL PULMONIC VALVE: NORMAL AORTIC VALVE: NORMAL PERICARDIAL EFFUSION: NONE AORTIC ROOT: NORMAL LEFT VENTRICULAR WALL MOTION: DIASTOLIC DYSFUNCTION DOPPLER/COLOR FLOW: DECREASED LEFT VENTRICULAR COMPLIANCE COMMENTS: DIASTOLIC DYSFUNCTION. DECREASED LEFT VENTRICULAR COMPLIANCE. NORMAL EJECTION FRACTION. LEFT VENTRICULAR HYPERTROPHY. NO EFFUSION. Follow up CXR 07/22/2021: COMPARISON: Chest Single View dated 07/20/2021; Chest Single View dated 07/16/2021; Chest Single View dated 10/24/2018; Chest Single View dated 07/20/2018 FINDINGS: Lines: None. Lungs: Worsened moderate bilateral airspace disease. Pleural: No significant pleural effusions or pneumothorax. Cardiac: The heart size is within normal limits. Bones: No acute fractures. Other: Sternotomy. IMPRESSION: Worsening airspace disease in the right lung could reflect edema and/or multifocal pneumonia. Physical Exam: GENERAL: Patient alert, cooperative VITAL SIGNS: Reviewed HEENT: Neck supple LUNGS: Patient on nonrebreather HEART: Regular rate and rhythm, no appreciable gallops, rubs, murmurs or extra heart sounds ABDOMEN: Soft, nontender, and nondistended. Positive bowel sounds. No hepatosplenomegaly was noted. EXTREMITIES: Without any cyanosis, clubbing, rash, lesions or peripheral edema. NEUROLOGIC: The patient is oriented to person, place and time. Strength and sensation are grossly intact. Face is symmetric. SKIN: Normal color, turgor and temperature. No ulcerations or rashes noted. Impression: Dyspnea secondary to bilateral Covid pneumonia with hypoxia Elevated troponin likely ischemic demand versus NSTEMI Hypertension Hyperlipidemia BPH Diabetes mellitus type 2 with hyperglycemia Acute on chronic renal disease stage III with nonanion gap metabolic acidosis Hypothyroidism Diabetic neuropathy Plan: Dyspnea secondary to bilateral Covid pneumonia with hypoxia complicated with acute on chronic diastolic CHF: Patient on nonrebreather. Continue to adjust to maintain sats above 90%. Nephrology plans to continue IV Lasix. Continue with IV steroids, baricitinib and supplementation. Continue monitor closely. Will monitor liver function tests on medication. Await further recommendations from pulmonology. Elevated troponin likely ischemic demand versus NSTEMI: Echo reveals diastolic dysfunction. Normal ejection fraction noted. No effusion noted. Patient would benefit with cardiac stress test as an outpatient.. Hypertension: Continue Norvasc 10 mg daily, carvedilol 3.25 mg 1 pill twice daily. Hyperlipidemia: Continue Crestor 40 mg daily BPH: Continue Flomax 0.4 mg daily Diabetes mellitus type 2 with hyperglycemia: Continue Accu-Cheks and sliding scale. Hemoglobin A1c 6.2. Patient started on Lantus 5 units subcu to maintain adequate blood sugar control. Acute on chronic renal disease stage III with nonanion gap metabolic acidosis: Continue sodium bicarbonate. Continue Lasix. Nephrology continues to adjust medication. Continue with nephrology recommendations Hypothyroidism: Continue with levothyroxine 25 mcg daily Diabetic neuropathy: Continue gabapentin. Hold if with increase sedation. Code Status: Full Code DVT prophylaxis: Heparin Advanced Care Planning-30 minutes: Home at discharge Time Spent Managing Pts Care (In Minutes): 55
--- NOTE | 2021-07-22 06:43 | P.PN ---
Subjective Date of Service: 07/22/21 Primary Care Provider: Dr. Malin Chief Complaint: UTI, Covid Subjective: Other (Bedridden. Still on O2 support.) Physical Examination - Vital Signs Temperature: 98.8 F Blood Pressure: 159/75 Pulse: 76 Respirations: 19 Pulse Ox (%): 95 - Physical Exam General: Other (appears as his stated age) HEENT: Atraumatic, Normocephalic Neck: Supple Respiratory: Other (symmetric chest expansion) Cardiovascular: No rubs, No murmurs Gastrointestinal: Soft and benign Neurological: Normal tone Urinary: Other (No bladder distention) Other Physical/Emotional Findings: Lives at home with family - Studies Microbiology Data (last 24 hrs): 07/16/21 15:20 Blood - Blood Aerobic Blood Culture - Final No growth in 5 days. 07/16/21 15:20 Blood - Blood Anaerobic Blood Culture - Final No growth in 5 days. 07/16/21 15:31 Blood - Blood Aerobic Blood Culture - Final No growth in 5 days. 07/16/21 15:31 Blood - Blood Anaerobic Blood Culture - Final No growth in 5 days. Medications List Reviewed: Yes Assessment And Plan - Plan # XENIA 2/2 nsaid/CRS/prerenal state/ATN Improved, SCr 1.9 today IV fluid as below Keep mckeon until he is able to spend time OOB Monitor I/O, renal panel # BPH Cont tamsulosis # Hypernatremia Corrected serum Na 149 Wt 96.8 kgs Total body water 48.4L Free water deficit 3.1L plus ongoing losses Insensible water loss 1L/d Urine free water loss at least 1L/d Start D5W 125 cc/hr; increase insulin dosing as indicated Encourage po fluid intake as able # BPH Cont flomax # Acute respiratory failure 2/2 covid PNA Still requires NRM, high flow O2 TTE +diastolic dysfxn Cont Lasix 40 mg IV bid Do not limit po free water intake as above # Htn BP above goal Start hydralazine 50 mg po bid Cont Amlodipine 10 mg po daily Cont Coreg 3.125 mg po bid Cont Lasix as above # Debility OOB w/ PT/OT
--- NOTE | 2021-07-22 07:19 | RAD REPORT ---
EXAM DESCRIPTION: RAD - Chest Single View - 07/22/2021 6:40 am CLINICAL HISTORY: Follow-up up Covid, CHF COMPARISON: Chest Single View dated 07/20/2021; Chest Single View dated 07/16/2021; Chest Single View dated 10/24/2018; Chest Single View dated 07/20/2018 FINDINGS: Lines: None. Lungs: Worsened moderate bilateral airspace disease. Pleural: No significant pleural effusions or pneumothorax. Cardiac: The heart size is within normal limits. Bones: No acute fractures. Other: Sternotomy. IMPRESSION: Worsening airspace disease in the right lung could reflect edema and/or multifocal pneum onia.
[2021-07-22 07:44] LABS: Absolute Lymphocytes (CBC) 0.3 K/uL (0.7-4.9); Basophils % 0.1 % (0-1.3); Hematocrit 31.8 % (39.6-49.0); Lymphocytes % 3.2 % (15.3-44.8); MPV 8.9 fL (7.6-11.3); RBC Red Blood Cell Count 3.51 M/uL (4.33-5.43)
[2021-07-22 08:27] LABS: Albumin 2.6 g/dL (3.4-5.0); Bilirubin Total 0.4 mg/dL (0.2-1.0); C-Reactive Protein 56.6 mg/L (<3.00); Ferritin 983.4 ng/mL (26-388); Magnesium 2.3 mg/dL (1.8-2.4); Phosphorus 4.2 mg/dL (2.5-4.9); Potassium 3.8 mmol/L (3.5-5.1); Protein, Total 6.3 g/dL (6.4-8.2)
[2021-07-22] MEDS: ROSUVASTATIN 10 MG TAB PO SCH (09:12)
[2021-07-22] MEDS: VITAMIN D 1000 UNIT TAB PO SCH (09:12)
[2021-07-22] MEDS: THIAMINE HCL 100 MG TABLET PO SCH (09:12)
[2021-07-22] MEDS: SODIUM BICARB 325 MG TAB PO SCH ×2 (09:12→20:58)
[2021-07-22] MEDS: METHYLPREDNISOLONE 40 MG INJ IV SCH ×2 (09:13→20:58)
[2021-07-22] MEDS: GABAPENTIN 400 MG CAP PO SCH ×2 (09:13→20:58)
[2021-07-22] MEDS: FUROSEMIDE 40 MG/4 ML VIAL IV SCH ×2 (09:13→16:56)
[2021-07-22] MEDS: BARICITINIB 2 MG TABLET PO SCH (09:13)
[2021-07-22] MEDS: ZINC SULFATE 220 MG CAP PO SCH (09:13)
[2021-07-22] MEDS: ASCORBIC ACID 500 MG TABLET PO SCH ×2 (09:13→12:10)
[2021-07-22] MEDS: TAMSULOSIN 0.4 MG SR CAP PO SCH (09:13)
[2021-07-22] MEDS: AMLODIPINE 10 MG TAB PO SCH (09:13)
[2021-07-22] MEDS: INSULIN -REGULAR HUMAN 50 UNIT/0.5 ML ML SQ SCH ×4 (09:13→20:59)
[2021-07-22] MEDS: HEPARIN 5000 UNIT/ML 1 ML VIAL SQ SCH ×2 (09:32→21:02)
--- NOTE | 2021-07-22 13:33 | P.PN ---
Subjective Date of Service: 07/22/21 Primary Care Provider: Dr. Malin Chief Complaint: UTI, Covid Not doign well requiring high conc of O2 Review of Systems General: Weakness Respiratory: Shortness of Breath Physical Examination - Vital Signs Temperature: 98.2 F Blood Pressure: 160/77 Pulse: 77 Respirations: 20 Pulse Ox (%): 100 - Physical Exam General: Alert, Cooperative, Moderate distress Other Physical/Emotional Findings: Lives at home with family - Studies Microbiology Data (last 24 hrs): 07/16/21 15:20 Blood - Blood Aerobic Blood Culture - Final No growth in 5 days. 07/16/21 15:20 Blood - Blood Anaerobic Blood Culture - Final No growth in 5 days. 07/16/21 15:31 Blood - Blood Aerobic Blood Culture - Final No growth in 5 days. 07/16/21 15:31 Blood - Blood Anaerobic Blood Culture - Final No growth in 5 days. Medications List Reviewed: Yes Assessment & Plan - Problems (Diagnosis) (1) COVID-19 Current Visit: Yes Status: Acute Plan: Resp failure , hypernatremia with renal failure/ pton lasix creat imroved
[2021-07-22] MEDS: INSULIN GLARGINE 100 UNITS/ML SQ SCH (20:58)
[2021-07-22] MEDS: GLUCERNA SHAKE 237 ML CAN PO SCH (21:00)
[2021-07-22] MEDS: D5W 1,000 ML IV SCH (21:03)
[2021-07-23] MEDS: D5W 1,000 ML IV SCH (05:38)
[2021-07-23] MEDS: LEVOTHYROXINE SOD 0.025 MG TAB PO SCH (05:38)
[2021-07-23 06:02] LABS: Absolute Lymphocytes (CBC) 0.3 K/uL (0.7-4.9); Hematocrit 28.7 % (39.6-49.0); Lymphocytes % 3.2 % (15.3-44.8); MPV 8.9 fL (7.6-11.3); RBC Red Blood Cell Count 3.18 M/uL (4.33-5.43)
--- NOTE | 2021-07-23 06:13 | P.PN ---
Subjective Date of Service: 07/23/21 Primary Care Provider: Dr. Malin Chief Complaint: UTI, Covid Subjective: Other (Patient remains on BiPAP at 90%) Physical Examination - Vital Signs Temperature: 97.7 F Blood Pressure: 162/76 Pulse: 74 Respirations: 22 Pulse Ox (%): 98 - Physical Exam Other Physical/Emotional Findings: Lives at home with family - Studies Medications List Reviewed: Yes Assessment & Plan Discharge Plan: Home Plan to discharge in: Greater than 2 days Physician Review Additional Text: COVID: positive CXR: COMPARISON: Chest Single View dated 10/24/2018; Chest Single View dated 07/20/2018; Chest Single View dated 12/27/2016; Chest Single View dated 12/25/2016 FINDINGS: Portable technique limits examination quality. Mild bilateral interstitial lung opacities are present which may represent pulmonary edema. The heart is moderately enlarged. No displaced fractures.St ernotomy wires present. IMPRESSION: Mild CHF suspected. Renal US: COMPARISON: Renal Ultrasound-Complete dated 07/21/2018 FINDINGS: The right kidney measures 9.8 x 5.6 x 4.1 cm. The left kidney measures 9.0 x 5.4 x 4.7 cm. Cortical thickness is normal. Echogenicity is slightly increased. No hydronephrosis or suspicious renal mass. A 14 millimeter cyst is present in the lower right kidney. A 2.3 cm cyst is present in the left kidney. No bladder wall thickening or mass. No intraluminal stone or mass. IMPRESSION: No hydronephrosis or suspicious renal mass. Increased cortical echogenicity is present consistent with medical renal disease. Body habitus artifact may contribute to this as well. Small bilateral renal cysts. ECHO: MEASUREMENTS (cm) DIASTOLIC (NORMALS) SYSTOLIC (NORMALS) IVSd 1.2 (0.6-1.2) LA Diam 3.8 (1.9-4.0) LVEF 60% LVIDd 5.9 (3.5-5.7) LVIDs 1.0 (2.0-3.5) %FS 33% LVPWd 1.3 (0.6-1.2) Ao Diam 3.5 (2.0-3.7) 2 DIMENSIONAL ASSESSMENT: RIGHT ATRIUM: NORMAL LEFT ATRIUM: NORMAL RIGHT VENTRICLE: NORMAL LEFT VENTRICLE: LEFT VENTRICULAR HYPERTROPHY TRICUSPID VALVE: NORMAL MITRAL VALVE: NORMAL PULMONIC VALVE: NORMAL AORTIC VALVE: NORMAL PERICARDIAL EFFUSION: NONE AORTIC ROOT: NORMAL LEFT VENTRICULAR WALL MOTION: DIASTOLIC DYSFUNCTION DOPPLER/COLOR FLOW: DECREASED LEFT VENTRICULAR COMPLIANCE COMMENTS: DIASTOLIC DYSFUNCTION. DECREASED LEFT VENTRICULAR COMPLIANCE. NORMAL EJECTION FRACTION. LEFT VENTRICULAR HYPERTROPHY. NO EFFUSION. Follow up CXR 07/23/2021: COMPARISON: Chest Single View dated 07/22/2021; Chest Single View dated 07/20/2021; Chest Single View dated 07/16/2021; Chest Single View dated 10/24/2018 FINDINGS: Lines: None. Lungs: Patchy moderate bilateral airspace disease Pleural: No significant pleural effusions or pneumothorax. Cardiac: Cardiomegaly. Sternotomy. Bones: No acute fractures. IMPRESSION: Similar degree of moderate bilateral airspace disease compared with 07/22/2021. Physical Exam: GENERAL: Patient alert, cooperative VITAL SIGNS: Reviewed HEENT: Neck supple LUNGS: Patient on nonrebreather HEART: Regular rate and rhythm, no appreciable gallops, rubs, murmurs or extra heart sounds ABDOMEN: Soft, nontender, and nondistended. Positive bowel sounds. No hepatosplenomegaly was noted. EXTREMITIES: Without any cyanosis, clubbing, rash, lesions or peripheral edema. NEUROLOGIC: The patient is oriented to person, place and time. Strength and sensation are grossly intact. Face is symmetric. SKIN: Normal color, turgor and temperature. No ulcerations or rashes noted. Impression: Dyspnea secondary to bilateral Covid pneumonia with hypoxia Elevated troponin likely ischemic demand versus NSTEMI Hypertension Hyperlipidemia BPH Diabetes mellitus type 2 with hyperglycemia Acute on chronic renal disease stage III with nonanion gap metabolic acidosis Hypothyroidism Diabetic neuropathy Plan: Dyspnea secondary to bilateral Covid pneumonia with hypoxia complicated with acute on chronic diastolic CHF: Patient currently on BiPAP at 90%. Nephrology continues with IV Lasix. Continue IV steroids and baricitinib. Chest x-ray shows similar pattern since yesterday. Will discuss with nephrology about the possibility of discontinuing IV fluids. Nephrology has decreased medication. Blood pressure needs to be better controlled. Will increase carvedilol. Will discuss with pulmonology as well. Elevated troponin likely ischemic demand versus NSTEMI: Echo reveals diastolic dysfunction. Normal ejection fraction noted. No effusion noted. Patient would benefit with cardiac stress test as an outpatient.. Hypertension: Increase carvedilol to 6.25 mg 1 pill twice daily. Continue Norvasc 10 mg daily. Hyperlipidemia: Continue Crestor 40 mg daily BPH: Continue Flomax 0.4 mg daily Diabetes mellitus type 2 with hyperglycemia: Continue Accu-Cheks and sliding scale. Hemoglobin A1c 6.2. Patient started on Lantus 5 units subcu to maintain adequate blood sugar control. Acute on chronic renal disease stage III with nonanion gap metabolic acidosis: Continue sodium bicarbonate. Continue Lasix. Nephrology has decreased IV fluids. Will discuss with nephrology about holding IV fluids Hypothyroidism: Continue with levothyroxine 25 mcg daily Diabetic neuropathy: Continue gabapentin. Hold if with increase sedation. Code Status: Full Code DVT prophylaxis: Heparin Advanced Care Planning-30 minutes: Home at discharge Time Spent Managing Pts Care (In Minutes): 55
[2021-07-23 07:02] LABS: Albumin 2.2 g/dL (3.4-5.0); Bilirubin Total 0.4 mg/dL (0.2-1.0); C-Reactive Protein 87.4 mg/L (<3.00); Ferritin 1125.1 ng/mL (26-388); Magnesium 2.3 mg/dL (1.8-2.4); Potassium 3.6 mmol/L (3.5-5.1); Protein, Total 5.8 g/dL (6.4-8.2)
--- NOTE | 2021-07-23 07:16 | RAD REPORT ---
EXAM DESCRIPTION: RAD - Chest Single View - 07/23/2021 5:52 am CLINICAL HISTORY: follow up COVID COMPARISON: Chest Single View dated 07/22/2021; Chest Single View dated 07/20/2021; Chest Single View dated 07/16/2021; Chest Single View dated 10/24/2018 FINDINGS: Lines: None. Lungs: Patchy moderate bilateral airspace disease Pleural: No significant pleural effusions or pneumothorax. Cardiac: Cardiomegaly. Sternotomy. Bones: No acute fractures. Other: IMPRESSION: Similar degree of moderate bilateral airspace disease compared with 07/22/2021.
[2021-07-23] MEDS: SODIUM BICARB 325 MG TAB PO SCH (08:53)
[2021-07-23] MEDS: GLUCERNA SHAKE 237 ML CAN PO SCH ×3 (08:53→19:53)
[2021-07-23] MEDS: FUROSEMIDE 40 MG/4 ML VIAL IV SCH (08:53)
[2021-07-23] MEDS: VITAMIN D 1000 UNIT TAB PO SCH (08:53)
[2021-07-23] MEDS: METHYLPREDNISOLONE 40 MG INJ IV SCH ×2 (08:53→20:00)
[2021-07-23] MEDS: BARICITINIB 2 MG TABLET PO SCH (08:53)
[2021-07-23] MEDS: THIAMINE HCL 100 MG TABLET PO SCH (08:53)
[2021-07-23] MEDS: AMLODIPINE 10 MG TAB PO SCH (08:53)
[2021-07-23] MEDS: GABAPENTIN 400 MG CAP PO SCH ×2 (08:53→19:51)
[2021-07-23] MEDS: ROSUVASTATIN 10 MG TAB PO SCH (08:54)
[2021-07-23] MEDS: INSULIN -REGULAR HUMAN 50 UNIT/0.5 ML ML SQ SCH ×4 (08:54→20:03)
[2021-07-23] MEDS: HEPARIN 5000 UNIT/ML 1 ML VIAL SQ SCH ×2 (08:55→19:49)
--- NOTE | 2021-07-23 09:06 | P.PN ---
Subjective Date of Service: 07/23/21 Primary Care Provider: Dr. Malin Chief Complaint: UTI, Covid Today Still on BiPAP poor oralintake Will dc Bicarbonate will reduce lasix and D5W rate Physical exam general: lethargic, NAD , on BiPAP Neck; Supple, No elevated JVD hear: RRR, normal S1,2 no murmur or rub Chest: CTAB, no rales or wheezes Abdomen: Soft , Nt Extremities no edema A/p # XENIA vs CKD Cr stable now 1.8 Keep mckeon until he is able to spend time OOB Monitor I/O, renal panel avoid NSAID renal dose meds # BPH Cont tamsulosis # Hypernatremia encourage Po intake will reduce D5W rate will reduce lasix rate # BPH Cont flomax # Acute respiratory failure 2/2 covid PNA Still requires NRM, high flow O2 TTE +diastolic dysfxn Cont Lasix 40 mg IV daily # Htn BP controlled # Debility OOB w/ PT/OT Physical Examination - Vital Signs Temperature: 97.7 F Blood Pressure: 162/76 Pulse: 74 Respirations: 22 Pulse Ox (%): 98 - Physical Exam Other Physical/Emotional Findings: Lives at home with family - Studies Medications List Reviewed: Yes
[2021-07-23] MEDS ORDERED: D5W 1,000 ML IV SCH (10:00)
[2021-07-23] MEDS: TAMSULOSIN 0.4 MG SR CAP PO SCH (19:50)
[2021-07-23] MEDS ORDERED: INSULIN GLARGINE 100 UNITS/ML SQ SCH (21:00)
[2021-07-23 23:42] LABS: Vitamin D 1,25-Dihydroxy Total 43 pg/mL (18-72); Vitamin D,1,25-OH2, D2 <8 pg/mL
[2021-07-24] MEDS: LEVOTHYROXINE SOD 0.025 MG TAB PO SCH (05:10)
--- NOTE | 2021-07-24 06:20 | P.PN ---
Subjective Date of Service: 07/24/21 Primary Care Provider: Dr. Malin Chief Complaint: UTI, Covid Subjective: Improving (Patient on 15 L) Physical Examination - Vital Signs Temperature: 97.0 F Blood Pressure: 157/79 Pulse: 69 Respirations: 17 Pulse Ox (%): 96 - Physical Exam Other Physical/Emotional Findings: Lives at home with family - Studies Medications List Reviewed: Yes Assessment & Plan Discharge Plan: Home Plan to discharge in: Greater than 2 days Physician Review Additional Text: COVID: positive CXR: COMPARISON: Chest Single View dated 10/24/2018; Chest Single View dated 07/20/2018; Chest Single View dated 12/27/2016; Chest Single View dated 12/25/2016 FINDINGS: Portable technique limits examination quality. Mild bilateral interstitial lung opacities are present which may represent pulmonary edema. The heart is moderately enlarged. No displaced fractures.Sternotomy wires present. IMPRESSION: Mild CHF suspected. Renal US: COMPARISON: Renal Ultrasound-Complete dated 07/21/2018 FINDINGS: The right kidney measures 9.8 x 5.6 x 4.1 cm. The left kidney measures 9.0 x 5.4 x 4.7 cm. Cortical thickness is normal. Echogenicity is slightly increased. No hydronephrosis or suspicious renal mass. A 14 millimeter cyst is present in the lower right kidney. A 2.3 cm cyst is present in the left kidney. No bladder wall thickening or mass. No intraluminal stone or mass. IMPRESSION: No hydronephrosis or suspicious renal mass. Increased cortical echogenicity is present consistent with medical renal disease. Body habitus artifact may contribute to this as well. Small bilateral renal cysts. ECHO: MEASUREMENTS (cm) DIASTOLIC (NORMALS) SYSTOLIC (NORMALS) IVSd 1.2 (0.6-1.2) LA Diam 3.8 (1.9-4.0) LVEF 60% LVIDd 5.9 (3.5-5.7) LVIDs 1.0 (2.0-3.5) %FS 33% LVPWd 1.3 (0.6-1.2) Ao Diam 3.5 (2.0-3.7) 2 DIMENSIONAL ASSESSMENT: RIGHT ATRIUM: NORMAL LEFT ATRIUM: NORMAL RIGHT VENTRICLE: NORMAL LEFT VENTRICLE: LEFT VENTRICULAR HYPERTROPHY TRICUSPID VALVE: NORMAL MITRAL VALVE: NORMAL PULMONIC VALVE: NORMAL AORTIC VALVE: NORMAL PERICARDIAL EFFUSION: NONE AORTIC ROOT: NORMAL LEFT VENTRICULAR WALL MOTION: DIASTOLIC DYSFUNCTION DOPPLER/COLOR FLOW: DECREASED LEFT VENTRICULAR COMPLIANCE COMMENTS: DIASTOLIC DYSFUNCTION. DECREASED LEFT VENTRICULAR COMPLIANCE. NORMAL EJECTION FRACTION. LEFT VENTRICULAR HYPERTROPHY. NO EFFUSION. Follow up CXR 07/23/2021: COMPARISON: Chest Single View dated 07/22/2021; Chest Single View dated 07/20/2021; Chest Single View dated 07/16/2021; Chest Single View dated 10/24/2018 FINDINGS: Lines: None. Lungs: Patchy moderate bilateral airspace disease Pleural: No significant pleural effusions or pneumothorax. Cardiac: Cardiomegaly. Sternotomy. Bones: No acute fractures. IMPRESSION: Similar degree of moderate bilateral airspace disease compared with 07/22/2021. Physical Exam: GENERAL: Patient alert, cooperative VITAL SIGNS: Reviewed HEENT: Neck supple LUNGS: Patient on 15 L HEART: Regular rate and rhythm, no appreciable gallops, rubs, murmurs or extra heart sounds ABDOMEN: Soft, nontender, and nondistended. Positive bowel sounds. No hep atosplenomegaly was noted. EXTREMITIES: Without any cyanosis, clubbing, rash, lesions or peripheral edema. NEUROLOGIC: The patient is oriented to person, place and time. Strength and sensation are grossly intact. Face is symmetric. SKIN: Normal color, turgor and temperature. No ulcerations or rashes noted. Impression: Dyspnea secondary to bilateral Covid pneumonia with hypoxia Elevated troponin likely ischemic demand versus NSTEMI Hypertension Hyperlipidemia BPH Diabetes mellitus type 2 with hyperglycemia Acute on chronic renal disease stage III with nonanion gap metabolic acidosis Hypothyroidism Diabetic neuropathy Plan: Dyspnea secondary to bilateral Covid pneumonia with hypoxia complicated with acute on chronic diastolic CHF: Patient has improved. Currently on 15 L. Nephrology continues with IV Lasix. Continue IV steroids and baricitinib. Nephrology continues to adjust IV fluids. Currently on D5W. Overall improved. Case discussed with pulmonology. I will turn to service over to the hospitalist team tomorrow. I will go over plan of care with him. Elevated troponin likely ischemic demand versus NSTEMI: Echo reveals diastolic dysfunction. Normal ejection fraction noted. No effusion noted. Patient would benefit with cardiac stress test as an outpatient.. Hypertension: Continue to adjust carvedilol. Currently on carvedilol to 6.25 mg 1 pill twice daily. Continue Norvasc 10 mg daily. Hyperlipidemia: Continue Crestor 40 mg daily BPH: Continue Flomax 0.4 mg daily Diabetes mellitus type 2 with hyperglycemia: Continue Accu-Cheks and sliding scale. Hemoglobin A1c 6.2. Continue to adjust Lantus for better control. Acute on chronic renal disease stage III with nonanion gap metabolic acidosis: Continue sodium bicarbonate. Continue Lasix. Nephrology to continue is adjust IV fluids Hypothyroidism: Continue with levothyroxine 25 mcg daily Diabetic neuropathy: Continue gabapentin. Hold if with increase sedation. Code Status: Full Code DVT prophylaxis: Heparin Advanced Care Planning-30 minutes: Home at discharge. Need to consider LTAC if his condition does not improve rapidly Time Spent Managing Pts Care (In Minutes): 55
[2021-07-24 06:33] LABS: Absolute Lymphocytes (CBC) 0.3 K/uL (0.7-4.9); Basophils % 0.1 % (0-1.3); Hematocrit 31.1 % (39.6-49.0); Lymphocytes % 2.9 % (15.3-44.8); MPV 8.6 fL (7.6-11.3); RBC Red Blood Cell Count 3.45 M/uL (4.33-5.43)
[2021-07-24 06:52] LABS: Albumin 2.3 g/dL (3.4-5.0); Bilirubin Total 0.4 mg/dL (0.2-1.0); C-Reactive Protein 64.2 mg/L (<3.00); Ferritin 1444.6 ng/mL (26-388); Magnesium 2.4 mg/dL (1.8-2.4); Potassium 3.7 mmol/L (3.5-5.1); Protein, Total 6.3 g/dL (6.4-8.2)
[2021-07-24 07:03] LABS: Alpha-1-Globulins 0.4 g/dL (0.2-0.3); Gamma Globulins 0.8 g/dL (0.8-1.7); INTERPRETATION REPORT
[2021-07-24] MEDS: INSULIN -REGULAR HUMAN 50 UNIT/0.5 ML ML SQ SCH ×4 (07:30→20:03)
--- NOTE | 2021-07-24 08:26 | RAD REPORT ---
EXAM DESCRIPTION: RAD - Chest Single View - 07/24/2021 6:44 am CLINICAL HISTORY: follow up COVID COMPARISON: Chest Single View dated 07/23/2021; Chest Single View dated 07/22/2021; Chest Single View dated 07/20/2021; Chest Single View dated 07/16/2021 FINDINGS: Lines: None. Lungs: Moderate bilateral airspace disease which is similar to 07/23/2021. Pleural: No significant pleural effusions or pneumothorax. Cardiac: Cardiomegaly. Sternotomy. Bones: No acute fractures. Other: IMPRESSION: Moderate bilateral airspace disease without significant change compared with 07/23/2021.
[2021-07-24] MEDS: GLUCERNA SHAKE 237 ML CAN PO SCH ×3 (09:00→20:03)
[2021-07-24] MEDS ORDERED: FUROSEMIDE 40 MG/4 ML VIAL IV SCH (09:00)
[2021-07-24] MEDS: VITAMIN D 1000 UNIT TAB PO SCH (09:30)
[2021-07-24] MEDS: ROSUVASTATIN 10 MG TAB PO SCH (09:30)
[2021-07-24] MEDS: AMLODIPINE 10 MG TAB PO SCH (09:31)
[2021-07-24] MEDS: THIAMINE HCL 100 MG TABLET PO SCH (09:31)
[2021-07-24] MEDS: HEPARIN 5000 UNIT/ML 1 ML VIAL SQ SCH ×2 (09:31→20:04)
[2021-07-24] MEDS: METHYLPREDNISOLONE 40 MG INJ IV SCH ×2 (09:31→20:03)
[2021-07-24] MEDS: CALCITROL 0.25 MCG CAP PO SCH (09:31)
[2021-07-24] MEDS: GABAPENTIN 400 MG CAP PO SCH (09:31)
[2021-07-24] MEDS: BARICITINIB 2 MG TABLET PO SCH (09:35)
--- NOTE | 2021-07-24 11:45 | P.PN ---
Subjective Date of Service: 07/24/21 Primary Care Provider: Dr. Malin Chief Complaint: UTI, Covid Patient is improving oxygen requirements declining he is eating and drinking with assistance Review of Systems General: Weakness Respiratory: Shortness of Breath Physical Examination - Vital Signs Temperature: 97.0 F Blood Pressure: 157/79 Pulse: 69 Respirations: 17 Pulse Ox (%): 96 - Physical Exam General: Alert, Cooperative, Moderate distress Respiratory: Clear to auscultation bilaterally, Diminished Other Physical/Emotional Findings: Lives at home with family - Studies Medications List Reviewed: Yes Assessment & Plan - Problems (Diagnosis) (1) COVID-19 Current Visit: Yes Status: Acute Plan: Respiratory failure oxygen requirements declining the need to titrate O2 down to a sat of 90% hyponatremic blood pressure elevated labs reviewed Haseeb followed by nephrology patient is also on D5 water
[2021-07-24] MEDS: D5W 1,000 ML IV SCH (14:24)
--- NOTE | 2021-07-24 14:27 | P.PN ---
Subjective Date of Service: 07/24/21 Primary Care Provider: Dr. Malin Chief Complaint: UTI, Covid Today sodium elevated Pt in negatve balance will increase D5W and change lasix to PO poor oral intake will reduce lasix and D5W rate will dc gabapentin Physical exam general: lethargic, NAD , on BiPAP Neck; Supple, No elevated JVD hear: RRR, normal S1,2 no murmur or rub Chest: CTAB, no rales or wheezes Abdomen: Soft , Nt Extremities no edema A/p # XENIA vs CKD Cr stable now 1.8 Keep mckeon until he is able to spend time OOB Monitor I/O, renal panel avoid NSAID renal dose meds # BPH Cont tamsulosis # Hypernatremia encourage Po intake will icrease D5W rate will change lasix to po # BPH Cont flomax # Acute respiratory failure 2/2 covid PNA Still requires NRM, high flow O2 TTE +diastolic dysfxn Cont Lasix 40 mg IV daily # Htn BP controlled # Debility OOB w/ PT/OT Physical Examination - Vital Signs Temperature: 97.0 F Blood Pressure: 157/79 Pulse: 69 Respirations: 17 Pulse Ox (%): 96 - Physical Exam Other Physical/Emotional Findings: Lives at home with family - Studies Medications List Reviewed: Yes
[2021-07-24] MEDS: TAMSULOSIN 0.4 MG SR CAP PO SCH (20:03)
[2021-07-24] MEDS: ACETAMINOPHEN 500 MG TAB PO PRN (20:03)
[2021-07-24] MEDS: INSULIN GLARGINE 100 UNITS/ML SQ SCH (20:04)
[2021-07-25] MEDS: D5W 1,000 ML IV SCH ×2 (00:24→10:24)
[2021-07-25 01:48] LABS: Arterial Blood Carboxyhemoglob 1.1 % (0-1.5); Blood Gas Oxyhemoglobin 96.1 % (94-97); Blood O2 Saturation 98.2 % (92-98.5)
[2021-07-25 03:51] LABS: Absolute Lymphocytes (CBC) 0.2 K/uL (0.7-4.9); Basophils % 0.1 % (0-1.3); Lymphocytes % 1.4 % (15.3-44.8); MPV 8.9 fL (7.6-11.3); RBC Red Blood Cell Count 3.11 M/uL (4.33-5.43)
[2021-07-25 04:30] LABS: Albumin 2.3 g/dL (3.4-5.0); Bilirubin Total 0.4 mg/dL (0.2-1.0); C-Reactive Protein 60.9 mg/L (<3.00); Ferritin 1445.4 ng/mL (26-388); Magnesium 2.4 mg/dL (1.8-2.4); Potassium 3.6 mmol/L (3.5-5.1); Protein, Total 5.9 g/dL (6.4-8.2)
[2021-07-25] MEDS: LEVOTHYROXINE SOD 0.025 MG TAB PO SCH (04:58)
[2021-07-25] MEDS: ACETAMINOPHEN 500 MG TAB PO PRN (04:58)
[2021-07-25 05:03] LABS: Blood Morphology Comment NOT SEEN (NOT SEEN); Platelet Estimate ADEQ
--- NOTE | 2021-07-25 07:51 | RAD REPORT ---
EXAM DESCRIPTION: [facility] Single View07/25/2021 5:26 am CLINICAL HISTORY: Shortness of breath COMPARISON: July 24 FINDINGS: Mild worsening in diffuse bilateral pulmonary opacities. The heart is mildly enlarged. Postsurgical changes involve the chest IMPRESSION: Mild worsening in diffuse bilateral pulmonary opacities which may represent pneumonia or pulmonary edema
[2021-07-25] MEDS: GLUCERNA SHAKE 237 ML CAN PO SCH ×3 (09:00→19:51)
[2021-07-25] MEDS: VITAMIN D 1000 UNIT TAB PO SCH (09:06)
[2021-07-25] MEDS: ROSUVASTATIN 10 MG TAB PO SCH (09:07)
[2021-07-25] MEDS: AMLODIPINE 10 MG TAB PO SCH (09:07)
[2021-07-25] MEDS: METHYLPREDNISOLONE 40 MG INJ IV SCH ×2 (09:07→19:50)
[2021-07-25] MEDS: FUROSEMIDE 40 MG TABLET PO SCH (09:07)
[2021-07-25] MEDS: THIAMINE HCL 100 MG TABLET PO SCH (09:07)
[2021-07-25] MEDS: INSULIN -REGULAR HUMAN 50 UNIT/0.5 ML ML SQ SCH ×4 (09:08→19:56)
[2021-07-25] MEDS: BARICITINIB 2 MG TABLET PO SCH (09:10)
[2021-07-25] MEDS: HEPARIN 5000 UNIT/ML 1 ML VIAL SQ SCH ×2 (09:30→19:50)
--- NOTE | 2021-07-25 16:45 | P.PN ---
Subjective Date of Service: 07/25/21 Patient is tachypneic and confused. Family at bedside. Review of Systems 10-point ROS is otherwise unremarkable Physical Examination - Vital Signs Temperature: 98.5 F Blood Pressure: 180/80 Pulse: 87 Respirations: 20 Pulse Ox (%): 90 - Physical Exam General: Confused HEENT: Atraumatic, PERRLA, EOMI Neck: Supple, JVD not distended Respiratory: Clear to auscultation bilaterally, Normal air movement Cardiovascular: Regular rate/rhythm, Normal S1 S2 Gastrointestinal: Normal bowel sounds, No tenderness Musculoskeletal: No tenderness Integumentary: No rashes Neurological: Normal speech, Normal tone, Normal affect Lymphatics: No axilla or inguinal lymphadenopathy Other Physical/Emotional Findings: Lives at home with family - Studies Medications List Reviewed: Yes Assessment & Plan - Problems (Diagnosis) (1) COVID-19 Current Visit: Yes Status: Acute (2) Altered mental state Onset Date: 10/28/18 Current Visit: No Status: Acute Qualifiers: Altered mental status type: unspecified Qualified Code(s): R41.82 - Altered mental status, unspecified (3) Confusion Onset Date: 10/28/18 Current Visit: No Status: Acute (4) Acute kidney injury Onset Date: 07/22/18 Current Visit: No Status: Chronic (5) DM2 (diabetes mellitus, type 2) Onset Date: 07/22/18 Current Visit: No Status: Chronic Qualifiers: Diabetes mellitus usp insulin use: without exterminator use Diabetes mellitus complication status: with hyperglycemia Qualified Code(s): E11.65 - Type 2 diabetes mellitus with hyperglycemia (6) HTN (hypertension) Onset Date: 07/22/18 Current Visit: No Status: Chronic Qualifiers: Hypertension type: essential hypertension - Plan 1. Continue with IV steroids 2. Monitor inflammatory markers 3. May need to repeat chest x-ray to continue monitor pneumonia 4. O2 per protocol 5. Pulmonary following 6. Continue with albuterol inhaler therapy; also supportive care 7. Monitor additional labs as needed 8. GI and DVT prophylaxis Discharge Plan: Home Plan to discharge in: Greater than 2 days - Advance Directives Does patient have a Living Will: No Does patient have a Durable POA for Healthcare: No - Code Status/Comfort Care Code Status: Full Code Critical Care: No Time Spent Managing PTS Care (In Minutes): 35
[2021-07-25] MEDS: TAMSULOSIN 0.4 MG SR CAP PO SCH (19:50)
[2021-07-25] MEDS: INSULIN GLARGINE 100 UNITS/ML SQ SCH (19:52)
[2021-07-25] MEDS ORDERED: MORPHINE 2 MG/ML SYR IV ONE (23:37)
--- NOTE | 2021-07-26 01:33 | PN ---
Date of Progress Note: 07/25/2021 Chief Complaint: Acute kidney injury on chronic kidney disease. Serum creatinine level is 1.8. The patient had Galindo catheter and has nonoliguric urine output. Review of Systems: Unobtainable. Physical Examination: General: Lethargic. Neck: Supple. Heart: S1, S2. Chest: Clear to auscultation bilaterally. Abdomen: Soft, benign. Extremities: No edema. Impression: 1.Acute kidney injury with underlying chronic kidney stage 3. Serum creatinine level 1.8. Continue Galindo catheter. Monitor urine output and fluid balance. Avoid nephrotoxic medication. Avoid nonst eroidal anti-inflammatory medication. Continue renal dose of medication. 2.Benign prostatic hyperplasia. The patient is on tamsulosin. Continue current treatment. 3.Hypernatremia. Encourage p.o. intake. The patient is on D5W, rate was adjusted. The patient is on Lasix p.o. Continue to monitor electrolytes, including magnesium. 4.Respiratory failure secondary to COVID pneumonia. The patient is on nonrebreather mask with high oxygen flow. 5.Cardiorenal syndrome. TTE showed diastolic dysfunction. Continue Lasix daily with 40 mg IV. EB/MODL Voice ID: [id number] Report ID: [id number]
[2021-07-26] MEDS: LEVOTHYROXINE SOD 0.025 MG TAB PO SCH (05:29)
[2021-07-26] MEDS: INSULIN -REGULAR HUMAN 50 UNIT/0.5 ML ML SQ SCH ×4 (07:30→19:57)
[2021-07-26] MEDS: GLUCERNA SHAKE 237 ML CAN PO SCH ×3 (09:00→19:57)
[2021-07-26] MEDS: BARICITINIB 2 MG TABLET PO SCH (09:17)
[2021-07-26] MEDS: VITAMIN D 1000 UNIT TAB PO SCH (09:17)
[2021-07-26] MEDS: THIAMINE HCL 100 MG TABLET PO SCH (09:17)
[2021-07-26] MEDS: ROSUVASTATIN 10 MG TAB PO SCH (09:17)
[2021-07-26] MEDS: FUROSEMIDE 40 MG TABLET PO SCH (09:18)
[2021-07-26] MEDS: METHYLPREDNISOLONE 40 MG INJ IV SCH ×2 (09:18→19:54)
[2021-07-26] MEDS: HEPARIN 5000 UNIT/ML 1 ML VIAL SQ SCH (09:18)
[2021-07-26] MEDS: AMLODIPINE 10 MG TAB PO SCH (09:18)
--- NOTE | 2021-07-26 11:59 | P.PN ---
Subjective Date of Service: 07/26/21 Primary Care Provider: Dr. Malin Chief Complaint: UTI, Covid Resp failure o2 improving Review of Systems General: Weakness Respiratory: Shortness of Breath Physical Examination - Vital Signs Temperature: 97.8 F Blood Pressure: 110/84 Pulse: 83 Respirations: 18 Pulse Ox (%): 100 - Physical Exam General: Alert, Cooperative, Delirious Other Physical/Emotional Findings: Lives at home with family - Studies Medications List Reviewed: Yes Assessment & Plan - Problems (Diagnosis) (1) COVID-19 Current Visit: Yes Status: Acute Plan: Resp failure renal function stable/ CW decreasin [id number] severe COVID penumonia. ABG
[2021-07-26] MEDS: CALCITROL 0.25 MCG CAP PO SCH (12:11)
[2021-07-26 13:33] LABS: Arterial Blood Carboxyhemoglob 1.2 % (0-1.5); Blood Gas Oxyhemoglobin 95.1 % (94-97); Blood O2 Saturation 97.3 % (92-98.5)
--- NOTE | 2021-07-26 15:03 | PN ---
Date of Progress Note: 07/26/2021 Subjective: The patient is still complaining from shortness of breath. The patient was admitted with COVID pneumonia. Physical Examination: Vital Signs: Blood pressure 110/84, pulse of 83. Chest: Crackles bilateral. Heart: S1, S2. Systolic murmur. Abdomen: Soft, nontender. Extremity: No edema. Neurologic: Alert. No focality. Laboratory Data: WBC 14.8, H and H 9.4/28. Sodium 146, potassium 3.6, bicarb 26, BUN 63, creatinine 1.7. Calcium 8.1, ferritin 1400. Current Medications: The patient on include Flomax, heparin, amlodipine 10, carvedilol, Lasix 40 daily, rosuvastatin, insulin, , morphine, cholecalciferol, calcitriol, thiamine. Assessment And Plan: 1. Acute kidney injury on chronic kidney disease, still on baseline. The patient looked to me over volume. I am going to switch his Lasix to IV, we will start him on 40 b.i.d. and we will follow up the patient. 2. Hypertension. We will utilize blood pressure for more diuresis. I am going to go ahead and discontinue amlodipine to avoid any low blood pressure. 3. Hypothyroidism. Continue levothyroxine. 4. COVID pneumonia as by primary. 5. Respiratory failure, multifactorial, secondary to COVID pneumonia/over volume with diuresis. We will follow up with Pulmonary and hospitalist. 6-diabetes with hyperglycemia patient was a started on Lantus will continue we will monitor the patient possible may need to adjusted Time spent examining the patient [id number] reviewing the data radiology and laboratory placing order discussing the case with all of our subspecialty including pulmonary and hospitalist discussing the case with the nursing team 35-minute NATASHA/GABRIELLA Voice ID: [id number] Report ID: [id number] BIA
[2021-07-26] MEDS: ENOXAPARIN 40 MG/0.4 ML SQ SCH (17:05)
[2021-07-26] MEDS: FUROSEMIDE 40 MG/4 ML VIAL IV SCH (17:06)
[2021-07-26] MEDS: TAMSULOSIN 0.4 MG SR CAP PO SCH (19:54)
[2021-07-26] MEDS: MORPHINE 2 MG/ML SYR IV PRN (19:54)
[2021-07-26] MEDS: INSULIN GLARGINE 100 UNITS/ML SQ SCH (19:57)
[2021-07-26] MEDS: ACETAMINOPHEN 500 MG TAB PO PRN (20:16)
[2021-07-27] MEDS: LEVOTHYROXINE SOD 0.025 MG TAB PO SCH (05:18)
[2021-07-27] MEDS: INSULIN -REGULAR HUMAN 50 UNIT/0.5 ML ML SQ SCH ×4 (07:30→19:57)
[2021-07-27] MEDS: GLUCERNA SHAKE 237 ML CAN PO SCH ×3 (09:00→19:57)
[2021-07-27] MEDS: FUROSEMIDE 40 MG/4 ML VIAL IV SCH ×2 (09:31→17:17)
[2021-07-27] MEDS: VITAMIN D 1000 UNIT TAB PO SCH (09:32)
[2021-07-27] MEDS: THIAMINE HCL 100 MG TABLET PO SCH (09:32)
[2021-07-27] MEDS: ROSUVASTATIN 10 MG TAB PO SCH (09:35)
[2021-07-27] MEDS: METHYLPREDNISOLONE 40 MG INJ IV SCH ×2 (09:36→19:55)
[2021-07-27] MEDS: BARICITINIB 2 MG TABLET PO SCH (09:36)
--- NOTE | 2021-07-27 11:43 | PN ---
Date of Progress Note: 07/27/2021 Subjective: The patient was admitted with COVID pneumonia, acute kidney injury secondary to cardiorenal, over volume. The patient still has shortness of breath. Yesterday, we increased the Lasix. Physical Examination: Vital Signs: Blood pressure 117/57, pulse of 88, afebrile. The patient had 1100 urine output. The patient was negative of 500. Chest: Crackles bilateral base, but better than yesterday. Heart: S1, S2. Systolic murmur. Abdomen: Soft, nontender. Extremities: Trace edema. Neurologic: Alert. No focality. Laboratory Data: WBC 14.8, H and H 9.4/28. Sodium 146, potassium 3.6, bicarb 26, BUN 63, creatinine 1.7, blood sugar above 200, calcium 8.1, magnesium 2.4, ferritin 1400. Current Medications: The patient on include 1. Flomax. 2. Lovenox. 3. Carvedilol 6.25 b.i.d. 4. Rosuvastatin. 5. Lasix 40 b.i.d. 6. Levothyroxine. 7. Insulin, 10 units of Lantus at bedtime. 8. Solu-Medrol. 9. Thiamin. 10. Morphine. 11. Calcitriol. 12. Cholecalciferol. Assessment And Plan: 1. Acute kidney injury on advanced chronic kidney disease, over volume. I am going to continue current diuresis and we will monitor the patient. The patient started being negative balance. Respiratory status slightly better. We will continue current Lasix dose. We will follow up the patient. I am going to accept marginal fluctuation in the kidney function in favor of establishing better volume control. 2. Disproportion in the BUN and creatinine secondary to the diuresis and secondary to cardiorenal state/catabolic state. 3. Hypertension, controlled, optimal. Continue current medications. We will utilize the blood pressure for more diuresis. I am going to go ahead and continue current Lasix and carvedilol. 4. Acidosis secondary to renal failure, recovered, resolved. 5. Hypokalemia, status post supplement. We will follow up the level. 6. Respiratory failure, multifactorial, over volume/COVID pneumonia. We will continue diuresis. We will follow up. 7. COVID pneumonia as by primary. time spend exam the patient face to face , reviewing data including radiology and lab , placing order discussing the case with other steam train driver including hospitalist , 45 min CK Voice ID: [id number] Report ID: [id number] MTDAleksander
--- NOTE | 2021-07-27 12:57 | P.PN ---
Date of Service: 07/26/21 Subjective Patient's clinical symptoms are improving. His mentation looks to be a little bit better today as well. Oxygenation is improving. Review of Systems 10-point ROS is otherwise unremarkable Physical Examination - Vital Signs Reviewed - Physical Exam General: Confused Respiratory: Clear to auscultation bilaterally, Normal air movement Cardiovascular: Regular rate/rhythm, Normal S1 S2 Gastrointestinal: Normal bowel sounds, No tenderness Neurological: Normal speech, Normal tone, Normal affect Assessment & Plan - Problems (Diagnosis) (1) COVID-19 pneumonia Current Visit: Yes Status: Acute (2) Altered mental state Onset Date: 10/28/18 Current Visit: No Status: Acute Qualifiers: Altered mental status type: unspecified Qualified Code(s): R41.82 - Altered mental status, unspecified (3) Confusion Onset Date: 10/28/18 Current Visit: No Status: Acute (4) Acute kidney injury Onset Date: 07/22/18 Current Visit: No Status: Chronic (5) DM2 (diabetes mellitus, type 2) Onset Date: 07/22/18 Current Visit: No Status: Chronic Qualifiers: Diabetes mellitus fpc insulin use: without fpc use Diabetes mellitus complication status: with hyperglycemia Qualified Code(s): E11.65 - Type 2 diabetes mellitus with hyperglycemia (6) HTN (hypertension) Onset Date: 07/22/18 Current Visit: No Status: Chronic Qualifiers: Hypertension type: essential hypertension Qualified Code(s): I10 - Essential (primary) hypertension PLAN: 1. Continue with IV steroids 2. Monitor inflammatory markers 3. Repeat chest x-ray 4. O2 per protocol 5. Pulmonary consultation appreciated 6. Continue with albuterol inhaler therapy; also supportive care 7. Monitor labs closely 8. Family refusing long-term acute care hospital or fdc facility placement. Hopefully, he continues to improve and we can work on getting him home soon 9. GI and DVT prophylaxis - Advance Directives Does patient have a Living Will: No Does patient have a Durable POA for Healthcare: No - Code Status/Comfort Care Code Status: Full Code
--- NOTE | 2021-07-27 13:01 | P.PN ---
Date of Service: 07/27/21 Subjective Patient was doing well. He was fairly anxious and ripped off his non-rebreather mass. He is placed on BiPAP at this time and maintaining his oxygen saturations fairly well. Repeat labs. Review of Systems 10-point ROS is otherwise unremarkable Physical Examination - Vital Signs Reviewed - Physical Exam General: Confused Respiratory: Clear to auscultation bilaterally, Normal air movement Cardiovascular: Regular rate/rhythm, Normal S1 S2 Gastrointestinal: Normal bowel sounds, No tenderness Neurological: Normal speech, Normal tone, Normal affect Assessment & Plan - Problems (Diagnosis) (1) COVID-19 pneumonia Current Visit: Yes Status: Acute (2) Altered mental state Onset Date: 10/28/18 Current Visit: No Status: Acute Qualifiers: Altered mental status type: unspecified Qualified Code(s): R41.82 - Altered mental status, unspecified (3) Confusion Onset Date: 10/28/18 Current Visit: No Status: Acute (4) Acute kidney injury Onset Date: 07/22/18 Current Visit: No Status: Chronic (5) DM2 (diabetes mellitus, type 2) Onset Date: 07/22/18 Current Visit: No Status: Chronic Qualifiers: Diabetes mellitus ad terminal makeup operator insulin use: without ad terminal makeup operator use Diabetes mellitus complication status: with hyperglycemia Qualified Code(s): E11.65 - Type 2 diabetes mellitus with hyperglycemia (6) HTN (hypertension) Onset Date: 07/22/18 Current Visit: No Status: Chronic Qualifiers: Hypertension type: essential hypertension Qualified Code(s): I10 - Essential (primary) hypertension PLAN: Continue with plan of care as mentioned below: 1. Continue with IV steroids 2. Monitor neuro status closely; concerning for viral encephalitis 3. Repeat chest x-ray 4. O2 per protocol 5. Pulmonary consultation appreciated 6. Continue with albuterol inhaler therapy; also supportive care 7. Monitor labs closely 8. Family refusing long-term acute care hospital or fpc facility placement. Hopefully, he continues to improve and we can work on getting him home soon 9. GI and DVT prophylaxis - Advance Directives Does patient have a Living Will: No Does patient have a Durable POA for Healthcare: No - Code Status/Comfort Care Code Status: Full Code
[2021-07-27] MEDS: ENOXAPARIN 40 MG/0.4 ML SQ SCH (17:17)
[2021-07-27] MEDS: TAMSULOSIN 0.4 MG SR CAP PO SCH (19:53)
[2021-07-27] MEDS: MORPHINE 2 MG/ML SYR IV PRN (19:55)
[2021-07-27] MEDS: INSULIN GLARGINE 100 UNITS/ML SQ SCH (19:56)
[2021-07-28 04:00] LABS: Absolute Lymphocytes (CBC) 0.3 K/uL (0.7-4.9); Basophils % 0.1 % (0-1.3); Hematocrit 22.6 % (39.6-49.0); Lymphocytes % 2.2 % (15.3-44.8); MPV 9.2 fL (7.6-11.3)
[2021-07-28 04:43] LABS: Albumin 2.4 g/dL (3.4-5.0); Bilirubin Total 0.3 mg/dL (0.2-1.0); C-Reactive Protein 19.4 mg/L (<3.00); Magnesium 2.8 mg/dL (1.8-2.4); Phosphorus 3.8 mg/dL (2.5-4.9); Potassium 4.2 mmol/L (3.5-5.1); Protein, Total 5.9 g/dL (6.4-8.2)
[2021-07-28] MEDS: LEVOTHYROXINE SOD 0.025 MG TAB PO SCH (05:15)
[2021-07-28] MEDS: INSULIN -REGULAR HUMAN 50 UNIT/0.5 ML ML SQ SCH ×4 (07:30→20:25)
--- NOTE | 2021-07-28 07:54 | P.PN ---
Date of Service: 07/28/21 Subjective Patient is still not doing too well. Oxygenating poorly. Patient still confused. Review of Systems 10-point ROS is otherwise unremarkable Physical Examination - Vital Signs Reviewed - Physical Exam General: Confused Respiratory: Clear to auscultation bilaterally, Normal air movement Cardiovascular: Regular rate/rhythm, Normal S1 S2 Gastrointestinal: Normal bowel sounds, No tenderness Neurological: Normal speech, Normal tone, Normal affect Assessment & Plan - Problems (Diagnosis) (1) COVID-19 pneumonia Current Visit: Yes Status: Acute (2) Altered mental state Onset Date: 10/28/18 Current Visit: No Status: Acute Qualifiers: Altered mental status type: unspecified Qualified Code(s): R41.82 - Altered mental status, unspecified (3) Confusion Onset Date: 10/28/18 Current Visit: No Status: Acute (4) Acute kidney injury Onset Date: 07/22/18 Current Visit: No Status: Chronic (5) DM2 (diabetes mellitus, type 2) Onset Date: 07/22/18 Current Visit: No Status: Chronic Qualifiers: Diabetes mellitus superintendent terminal insulin use: without detention use Diabetes mellitus complication status: with hyperglycemia Qualified Code(s): E11.65 - Type 2 diabetes mellitus with hyperglycemia (6) HTN (hypertension) Onset Date: 07/22/18 Current Visit: No Status: Chronic Qualifiers: Hypertension type: essential hypertension Qualified Code(s): I10 - Essential (primary) hypertension PLAN: Continue with plan of care as mentioned below: 1. Continue with IV steroids 2. Monitor neuro status closely; patient not responding appropriately to morphine 3. Repeat chest x-ray as needed 4. O2 per protocol 5. Pulmonary consultation appreciated 6. Continue with albuterol inhaler therapy; also supportive care 7. Monitor labs closely 8. Hopefully, he continues to improve and we can work on getting him home soon 9. GI and DVT prophylaxis - Advance Directives Does patient have a Living Will: No Does patient have a Durable POA for Healthcare: No - Code Status/Comfort Care Code Status: Full Code
[2021-07-28] MEDS: BARICITINIB 2 MG TABLET PO SCH (08:36)
[2021-07-28] MEDS: METHYLPREDNISOLONE 40 MG INJ IV SCH ×2 (08:36→20:24)
[2021-07-28] MEDS: ROSUVASTATIN 10 MG TAB PO SCH (08:36)
--- NOTE | 2021-07-28 08:36 | RAD REPORT ---
EXAM DESCRIPTION: RAD - Chest Single View - 07/28/2021 6:19 am CLINICAL HISTORY: pneumonia Chest pain. COMPARISON: Chest Single View dated 07/25/2021; Chest Single View dated 07/24/2021; Chest Single View dated 07/23/2021; Chest Single View dated 07/22/2021 FINDINGS: Portable technique limits examination quality. Moderate bilateral pulmonary opacities are noted, slightly greater on the right. Overall, lung aerati on appears unchanged since comparative study. The heart is normal in size.Sternotomy wires.
[2021-07-28] MEDS: THIAMINE HCL 100 MG TABLET PO SCH (08:37)
[2021-07-28] MEDS: VITAMIN D 1000 UNIT TAB PO SCH (08:37)
[2021-07-28] MEDS: GLUCERNA SHAKE 237 ML CAN PO SCH ×3 (09:00→20:25)
[2021-07-28] MEDS ORDERED: MINERAL OIL 30 ML UCUP PO ONE (09:52)
[2021-07-28] MEDS ORDERED: BISACODYL E.C. 5 MG TAB PO PRN (09:52)
[2021-07-28] MEDS ORDERED: MINERAL OIL 30 ML UCUP PO PRN (09:52)
[2021-07-28] MEDS ORDERED: SODIUM CHLORIDE 0.9% 10ML INJ IV PRN (09:53)
[2021-07-28] MEDS ORDERED: PANTOPRAZOLE 40 MG INJ IVP ONE (09:53)
[2021-07-28 10:41] LABS: Urine Appearance TURBID (Clear); Urine Bilirubin NEGATIVE (Negative); Urine Blood 3+ (Negative); Urine Color YELLOW (Yellow); Urine Glucose NEGATIVE (Negative); Urine Protein 2+ (Negative); Urine Specific Gravity 1.015 (1.005-1.030); Urine Urobilinogen 0.2 mg/dL (0.2-1.0)
[2021-07-28 10:44] LABS: Urine Microscopic Reflex ORDER UMIC
[2021-07-28 11:00] LABS: Urine Amorphous Sediment 3+ /HPF (NONE SEEN); Urine Bacteria >50 /HPF (NONE SEEN); Urine RBC >50 /HPF (NONE SEEN)
[2021-07-28] MEDS: CALCITROL 0.25 MCG CAP PO SCH (11:06)
[2021-07-28 11:54] LABS: Absolute Lymphocytes (CBC) 0.3 K/uL (0.7-4.9); Basophils % 0.3 % (0-1.3); Hematocrit 21.6 % (39.6-49.0); Lymphocytes % 1.5 % (15.3-44.8); MPV 9.3 fL (7.6-11.3); RBC Red Blood Cell Count 2.36 M/uL (4.33-5.43)
[2021-07-28 12:18] LABS: Magnesium 2.8 mg/dL (1.8-2.4); Phosphorus 3.9 mg/dL (2.5-4.9)
--- NOTE | 2021-07-28 12:37 | P.PN ---
Subjective Date of Service: 07/28/21 Primary Care Provider: Dr. Malin Chief Complaint: Respiratory failure Patient is delirious agitated requiring high concentrations of oxygen Review of Systems is unable to be obtained Physical Examination - Vital Signs Temperature: 97.5 F Blood Pressure: 147/71 Pulse: 80 Respirations: 20 Pulse Ox (%): 92 - Physical Exam General: Unresponsive Other Physical/Emotional Findings: Lives at home with family - Studies Medications List Reviewed: Yes Assessment & Plan - Problems (Diagnosis) (1) COVID-19 Current Visit: Yes Status: Acute Plan: Respiratory failure oxygenation is improving patient is agitated renal function worse hold Lasix chest x-ray no change on maximum therapy patient is eating and drinking
[2021-07-28 13:01] LABS: Blood Morphology Comment NOT SEEN (NOT SEEN); Platelet Estimate ADEQ; White Blood Cell Scan OK (OK)
--- NOTE | 2021-07-28 13:06 | P.PN ---
Subjective Date of Service: 07/28/21 Primary Care Provider: Dr. Malin Chief Complaint: Respiratory failure patient still have shortness of breath Patient had a drop in his hemoglobin and plan for blood transfusion today Review of Systems General: Weakness Eyes: Unremarkable ENT: Unremarkable Respiratory: Cough, Shortness of Breath, SOB with Excertion, Wheezing Cardiovascular: Chest Pain, Light Headedness Gastrointestinal: Unremarkable Musculoskeletal: Back Pain Physical Examination - Vital Signs Temperature: 97.5 F Blood Pressure: 147/71 Pulse: 80 Respirations: 20 Pulse Ox (%): 92 - Physical Exam General: Alert, Oriented x3 HEENT: Atraumatic Neck: Supple Respiratory: Crackles/rales Cardiovascular: No edema, Normal S1 S2, Systolic murmur Gastrointestinal: Normal bowel sounds, No ascites, No tenderness, No masses Neurological: Normal strength at 5/5 x4 extr, Normal reflexes 2+ Other Physical/Emotional Findings: Lives at home with family - Studies WBC 17.1 H&H 7/21.6 sodium 151 potassium 4 bicarb 27 BUN 85 creatinine 2.4 blood sugar 330 Medications List Reviewed: Yes Assessment & Plan Physician Review Additional Text: COVID: positive CXR: COMPARISON: Chest Single View dated 10/24/2018; Chest Single View dated 07/20/2018; Chest Single View dated 12/27/2016; Chest Single View dated 12/25/2016 FINDINGS: Portable technique limits examination quality. Mild bilateral interstitial lung opacities are present which may represent pulmonary edema. The heart is moderately enlarged. No displaced fractures.Sternotomy wires present. IMPRESSION: Mild CHF suspected. Renal US: COMPARISON: Renal Ultrasound-Complete dated 07/21/2018 FINDINGS: The right kidney measures 9.8 x 5.6 x 4.1 cm. The left kidney measures 9.0 x 5.4 x 4.7 cm. Cortical thickness is normal. Echogenicity is slightly increased. No hydronephrosis or suspicious renal mass. A 14 millimeter cyst is present in the lower right kidney. A 2.3 cm cyst is present in the left kidney. No bladder wall thickening or mass. No intraluminal stone or mass. IMPRESSION: No hydronephrosis or suspicious renal mass. Increased cortical echogenicity is present consistent with medical renal disease. Body habitus artifact may contribute to this as well. Small bilateral renal cysts. ECHO: MEASUREMENTS (cm) DIASTOLIC (NORMALS) SYSTOLIC (NORMALS) IVSd 1.2 (0.6-1.2) LA Diam 3.8 (1.9-4.0) LVEF 60% LVIDd 5.9 (3.5-5.7) LVIDs 1.0 (2.0-3.5) %FS 33% LVPWd 1.3 (0.6-1.2) Ao Diam 3.5 (2.0-3.7) 2 DIMENSIONAL ASSESSMENT: RIGHT ATRIUM: NORMAL LEFT ATRIUM: NORMAL RIGHT VENTRICLE: NORMAL LEFT VENTRICLE: LEFT VENTRICULAR HYPERTROPHY TRICUSPID VALVE: NORMAL MITRAL VALVE: NORMAL PULMONIC VALVE: NORMAL AORTIC VALVE: NORMAL PERICARDIAL EFFUSION: NONE AORTIC ROOT: NORMAL LEFT VENTRICULAR WALL MOTION: DIASTOLIC DYSFUNCTION DOPPLER/COLOR FLOW: DECREASED LEFT VENTRICULAR COMPLIANCE COMMENTS: DIASTOLIC DYSFUNCTION. DECREASED LEFT VENTRICULAR COMPLIANCE. NORMAL EJECTION FRACTION. LEFT VENTRICULAR HYPERTROPHY. NO EFFUSION. Current Medications: The patient on include 1. Flomax. 2. Lovenox. 3. Carvedilol 6.25 b.i.d. 4. Rosuvastatin. 5. Lasix 40 b.i.d. 6. Levothyroxine. 7. Insulin, 10 units of Lantus at bedtime. 8. Solu-Medrol. 9. Thiamin. 10. Morphine. 11. Calcitriol. 12. Cholecalciferol. 13. Assessment And Plan: 1. Acute kidney injury on advanced chronic kidney disease, will possible secondary to overdiuresis: Decrease Lasix 40 mg daily We will continue to monitor the patient closely Encourage oral hydration 2. Disproportion in the BUN and creatinine secondary to the diuresis and secondary to cardiorenal state/catabolic state/GI bleed supported with the drop in hemoglobin: Decrease Lasix 40 mg daily We will monitor the patient 3. Hypertension, controlled, optimal. Continue current medications. We will utilize the blood pressure for more diuresis. I am going to go ahead and continue current Lasix and carvedilol. 4. Acidosis secondary to renal failure, recovered, resolved. 5. Hypokalemia, status post supplement. We will follow up the level. 6. Respiratory failure, multifactorial, over volume/COVID pneumonia. We will continue diuresis. We will follow up. 7. COVID pneumonia as by primary. 8. Anemia with the present of respiratory failure I agree with the blood transfusion we will follow up with fluid status closely Time spent examining the patient [id number] placing order reviewing data including radiology and lab discussing the case with other subspecialty including pulmonary hospitalist discussing the case with the other steam conditioning operator including the nursing 35-minute
[2021-07-28] MEDS ORDERED: NA CHLORIDE 0.9% 250 ML ONE (13:31)
[2021-07-28] MEDS: ENOXAPARIN 40 MG/0.4 ML SQ SCH (17:00)
[2021-07-28] MEDS ORDERED: MORPHINE 4 MG/ML SYR IV PRN (17:46)
[2021-07-28] MEDS ORDERED: FUROSEMIDE 40 MG/4 ML VIAL IV SCH (18:00)
[2021-07-28] MEDS ORDERED: FUROSEMIDE 40 MG/4 ML VIAL IV ONE (18:00)
[2021-07-28] MEDS: TAMSULOSIN 0.4 MG SR CAP PO SCH (20:24)
[2021-07-28] MEDS: INSULIN GLARGINE 100 UNITS/ML SQ SCH (20:24)
[2021-07-28] MEDS: PANTOPRAZOLE 40 MG INJ IVP SCH (20:28)
[2021-07-29] MEDS: HYDRALAZINE HCL 20 MG/ML VIAL IV PRN ×2 (00:06→20:25)
[2021-07-29 01:33] LABS: Hematocrit 27.2 % (39.6-49.0)
[2021-07-29] MEDS: MORPHINE 4 MG/ML SYR IM PRN (03:54)
[2021-07-29 04:14] LABS: Absolute Lymphocytes (CBC) 0.4 K/uL (0.7-4.9); Basophils % 0.1 % (0-1.3); Hematocrit 28.9 % (39.6-49.0); Lymphocytes % 1.8 % (15.3-44.8); MPV 9.2 fL (7.6-11.3); RBC Red Blood Cell Count 3.23 M/uL (4.33-5.43)
[2021-07-29 04:37] LABS: Albumin 2.7 g/dL (3.4-5.0); Bilirubin Total 0.4 mg/dL (0.2-1.0); C-Reactive Protein 15.6 mg/L (<3.00); Magnesium 2.8 mg/dL (1.8-2.4); Potassium 4.3 mmol/L (3.5-5.1); Protein, Total 6.5 g/dL (6.4-8.2); Uric Acid 15.6 mg/dL (3.5-7.2)
--- NOTE | 2021-07-29 04:48 | P.PN ---
Subjective Date of Service: 07/29/21 Primary Care Provider: Dr. Malin Chief Complaint: Respiratory failure patient still have shortness of breath Subjective: Other (Remains w/ poor po intake.) Physical Examination - Vital Signs Temperature: 98.1 F Blood Pressure: 149/64 Pulse: 85 Respirations: 19 Pulse Ox (%): 99 - Physical Exam General: Other (appears as his stated age.) HEENT: Atraumatic, Normocephalic Neck: Supple Respiratory: Other (symmetric chest expansion) Cardiovascular: No rubs, No murmurs Gastrointestinal: Soft and benign, Non-distended Musculoskeletal: No clubbing Integumentary: Other (normal temp) Neurological: Normal tone Urinary: Other (no bladder distention) External genitalia: Deferred Rectal: Deferred Other Physical/Emotional Findings: Lives at home with family - Studies Medications List Reviewed: Yes Assessment And Plan - Plan # XENIA 2/2 nsaid/CRS/prerenal state/ATN SCr increased, now plateaued at 2.5 IV fluid as below Keep mckeon until he is able to spend time OOB Monitor I/O, renal panel # BPH Cont Tamsulosin # Dysphagia Poor po intake On puree diet prec Start PPN via Clinimix 60 cc/hr # Hypernatremia 2/2 poor po fluid intake Corrected serum Na 158 Wt 86.8 kgs Total body water 43.4L Free water deficit 5.6L plus ongoing losses Insensible water loss 1L/d Urine free water loss at least 1L/d Start D5W 100 cc/hr; increase insulin dosing as indicated Additional free water repletion from Clinimix as above Encourage po fluid intake as able # BPH Cont flomax # Acute respiratory failure 2/2 covid PNA Still requires NRM, high flow O2 TTE +diastolic dysfxn Do not limit po free water intake as above Lasix d/c'ed # Htn BP above goal Resume Coreg 6.25 mg po bid # Delirium Seroquel 25 mg po qhs Haldol prn # Debility OOB w/ PT/OT
[2021-07-29 05:21] LABS: Anisocytosis 1+; Blood Morphology Comment NOTED (NOT SEEN); Platelet Estimate ADEQ
[2021-07-29 05:22] LABS: Stomatocytes 1+
[2021-07-29] MEDS: D5W 1,000 ML IV SCH ×4 (05:38→23:56)
[2021-07-29] MEDS: LEVOTHYROXINE SOD 0.025 MG TAB PO SCH (05:38)
[2021-07-29] MEDS: INSULIN -REGULAR HUMAN 50 UNIT/0.5 ML ML SQ SCH ×4 (07:30→20:26)
[2021-07-29] MEDS: VITAMIN D 1000 UNIT TAB PO SCH (08:27)
[2021-07-29] MEDS: THIAMINE HCL 100 MG TABLET PO SCH (08:28)
[2021-07-29] MEDS: METHYLPREDNISOLONE 40 MG INJ IV SCH ×2 (08:28→20:27)
[2021-07-29] MEDS: PANTOPRAZOLE 40 MG INJ IVP SCH ×2 (08:28→20:23)
[2021-07-29] MEDS: BARICITINIB 2 MG TABLET PO SCH (08:28)
[2021-07-29] MEDS: GLUCERNA SHAKE 237 ML CAN PO SCH ×3 (08:29→20:23)
[2021-07-29] MEDS: ROSUVASTATIN 10 MG TAB PO SCH (08:36)
--- NOTE | 2021-07-29 12:30 | P.PN ---
Subjective Date of Service: 07/29/21 Primary Care Provider: Dr. Malin Chief Complaint: Respiratory failure patient still have shortness of breath Patient is improving less agitated and 50% FiO2 Review of Systems General: Weakness Respiratory: Shortness of Breath Physical Examination - Vital Signs Temperature: 99.6 F Blood Pressure: 158/80 Pulse: 98 Respirations: 23 Pulse Ox (%): 89 - Physical Exam General: Alert, Oriented x3, Cooperative Other Physical/Emotional Findings: Lives at home with family - Studies Medications List Reviewed: Yes Assessment & Plan - Problems (Diagnosis) (1) COVID-19 Current Visit: Yes Status: Acute Plan: Respiratory failure patient is improving more alert responsive becoming more hyponatremic renal function hyponatremia worse Lasix discontinued started on IV fluids
[2021-07-29] MEDS: ENOXAPARIN 30 MG/0.3 ML SQ SCH (16:35)
[2021-07-29] MEDS: AA 4.25 %/D5W/ELECTROLYTES 2,000 ML, Lipids 20% 250 ML with MULTIVITAMINS INJ 10 ML IV SCH ×3 (17:29)
[2021-07-29] MEDS ORDERED: DEXTROSE 10%-WATER 500 ML IV SCH ×2 (18:00)
[2021-07-29] MEDS ORDERED: FUROSEMIDE 40 MG/4 ML VIAL IV SCH (18:00)
[2021-07-29] MEDS: QUETIAPINE 25 MG TAB PO SCH (20:24)
[2021-07-29] MEDS: TAMSULOSIN 0.4 MG SR CAP PO SCH (20:24)
[2021-07-29] MEDS: INSULIN GLARGINE 100 UNITS/ML SQ SCH (20:27)
[2021-07-30 04:39] LABS: Absolute Lymphocytes (CBC) 0.2 K/uL (0.7-4.9); Basophils % 0.2 % (0-1.3); Hematocrit 24.3 % (39.6-49.0); Lymphocytes % 1.4 % (15.3-44.8); MPV 9.3 fL (7.6-11.3); RBC Red Blood Cell Count 2.68 M/uL (4.33-5.43)
[2021-07-30 05:09] LABS: Albumin 2.3 g/dL (3.4-5.0); Bilirubin Total 0.4 mg/dL (0.2-1.0); C-Reactive Protein 40.3 mg/L (<3.00); Magnesium 2.8 mg/dL (1.8-2.4); Phosphorus 3.3 mg/dL (2.5-4.9); Potassium 4.3 mmol/L (3.5-5.1); Protein, Total 5.5 g/dL (6.4-8.2)
[2021-07-30] MEDS: INSULIN -REGULAR HUMAN 50 UNIT/0.5 ML ML SQ SCH ×4 (06:05→20:31)
[2021-07-30] MEDS: LEVOTHYROXINE SOD 0.025 MG TAB PO SCH (06:07)
--- NOTE | 2021-07-30 06:53 | P.PN ---
Subjective Date of Service: 07/31/21 Primary Care Provider: Dr. Malin Chief Complaint: Respiratory failure patient still have shortness of breath Subjective: No new changes Physical Examination - Vital Signs Temperature: 98.5 F Blood Pressure: 150/70 Pulse: 84 Respirations: 21 Pulse Ox (%): 94 - Physical Exam General: Other (appears as his stated age) HEENT: Atraumatic, Normocephalic Neck: Supple Respiratory: Other (symmetric chest expansion) Cardiovascular: No rubs, No murmurs Gastrointestinal: Soft and benign Urinary: Other (No bladder distention) Other Physical/Emotional Findings: Lives at home with family - Studies Medications List Reviewed: Yes Assessment And Plan - Plan # XENIA 2/2 nsaid/CRS/prerenal state/ATN SCr increased to 2.7 IV fluid as below Keep mckeon until he is able to spend time OOB Monitor I/O, renal panel # BPH Cont Tamsulosin # Dysphagia Poor po intake On puree diet prec Start PPN via Clinimix 60 cc/hr # Hypernatremia 2/2 poor po fluid intake Corrected serum Na 158 yesterday, decreased to 150 today Wt 86.8 kgs Total body water 43.4L Free water deficit 5.6L plus ongoing losses Insensible water loss 1L/d Urine free water loss at least 1L/d D5W decrease to 50 cc/hr; increase insulin dosing as indicated Additional free water repletion from Clinimix 90 cc/hr as above Encourage po fluid intake as able # Acute respiratory failure 2/2 covid PNA Still requires NRM, high flow O2 TTE +diastolic dysfxn Do not limit po free water intake as above Lasix d/c'ed # Htn BP above goal Resume Coreg 6.25 mg po bid # Delirium Seroquel 25 mg po qhs Haldol prn # Debility OOB w/ PT/OT
[2021-07-30] MEDS: D5W 1,000 ML IV SCH ×3 (07:21→11:28)
[2021-07-30] MEDS: METHYLPREDNISOLONE 40 MG INJ IV SCH ×2 (07:33→20:30)
[2021-07-30] MEDS: ROSUVASTATIN 10 MG TAB PO SCH (07:33)
[2021-07-30] MEDS: PANTOPRAZOLE 40 MG INJ IVP SCH ×2 (07:33→20:29)
[2021-07-30] MEDS: THIAMINE HCL 100 MG TABLET PO SCH (07:34)
[2021-07-30] MEDS: BARICITINIB 2 MG TABLET PO SCH (07:34)
[2021-07-30] MEDS: GLUCERNA SHAKE 237 ML CAN PO SCH ×3 (07:34→20:30)
[2021-07-30] MEDS: VITAMIN D 1000 UNIT TAB PO SCH (07:34)
[2021-07-30] MEDS: HYDRALAZINE HCL 20 MG/ML VIAL IV PRN (08:13)
[2021-07-30] MEDS ORDERED: INSULIN 70/30 100 UNITS/ML SQ ONE (10:00)
[2021-07-30] MEDS: CALCITROL 0.25 MCG CAP PO SCH (10:38)
[2021-07-30] MEDS: ENOXAPARIN 30 MG/0.3 ML SQ SCH (16:15)
[2021-07-30] MEDS: AA 4.25 %/D5W/ELECTROLYTES 2,000 ML with MULTIVITAMINS INJ 10 ML IV SCH ×2 (16:15)
[2021-07-30] MEDS: carvediloL 3.125 MG TAB PO SCH (16:48)
[2021-07-30] MEDS ORDERED: AA 5%/D20W/ELECTROLYTES-TPN 2,000 ML, Lipids 20% 250 ML with MULTIVITAMINS INJ 10 ML IV SCH ×3 (17:00)
[2021-07-30] MEDS: INSULIN GLARGINE 100 UNITS/ML SQ SCH (20:30)
[2021-07-30] MEDS: TAMSULOSIN 0.4 MG SR CAP PO SCH (20:30)
[2021-07-30] MEDS: QUETIAPINE 25 MG TAB PO SCH (21:00)
[2021-07-31] MEDS: D5W 1,000 ML IV SCH (02:24)
[2021-07-31] MEDS: HYDRALAZINE HCL 20 MG/ML VIAL IV PRN (04:12)
[2021-07-31 05:30] LABS: Albumin 2.2 g/dL (3.4-5.0); Phosphorus 4.2 mg/dL (2.5-4.9); Potassium 4.6 mmol/L (3.5-5.1)
[2021-07-31] MEDS: carvediloL 3.125 MG TAB PO SCH ×2 (05:44→17:00)
[2021-07-31] MEDS: LEVOTHYROXINE SOD 0.025 MG TAB PO SCH (05:44)
[2021-07-31] MEDS: ROSUVASTATIN 10 MG TAB PO SCH (07:58)
[2021-07-31] MEDS: METHYLPREDNISOLONE 40 MG INJ IV SCH ×2 (07:58→20:34)
[2021-07-31] MEDS: VITAMIN D 1000 UNIT TAB PO SCH (07:58)
[2021-07-31] MEDS: INSULIN -REGULAR HUMAN 50 UNIT/0.5 ML ML SQ SCH ×4 (07:59→20:45)
[2021-07-31] MEDS: BARICITINIB 2 MG TABLET PO SCH (07:59)
[2021-07-31] MEDS: PANTOPRAZOLE 40 MG INJ IVP SCH ×2 (07:59→20:34)
[2021-07-31] MEDS: THIAMINE HCL 100 MG TABLET PO SCH (07:59)
[2021-07-31] MEDS: GLUCERNA SHAKE 237 ML CAN PO SCH ×3 (08:00→20:44)
--- NOTE | 2021-07-31 09:02 | P.PN ---
Subjective Date of Service: 07/31/21 Primary Care Provider: Dr. Malin Chief Complaint: Respiratory failure patient still have shortness of breath Subjective: Other (Somnolent today. Had agitation episode in early AM today.) Physical Examination - Vital Signs Temperature: 98.9 F Blood Pressure: 137/69 Pulse: 89 Respirations: 20 Pulse Ox (%): 98 - Physical Exam General: Other (appears as his stated age) HEENT: Atraumatic, Normocephalic Neck: JVD not distended Respiratory: Other (symmetric chest expansion) Cardiovascular: No rubs, No murmurs Gastrointestinal: Soft and benign Musculoskeletal: No clubbing Integumentary: No warmth Neurological: Other (Obtunded) Urinary: Other (no bladder distention) Other Physical/Emotional Findings: Lives at home with family - Studies Medications List Reviewed: Yes Assessment And Plan - Plan # XENIA 2/2 nsaid/CRS/prerenal state/ATN SCr improved from 2.7 to 2.5 today IV fluid as below Keep mckeon until he is more OOB Monitor I/O, renal panel # BPH Cont Tamsulosin # Dysphagia On puree diet PPN via Clinimix 60 cc/hr # Hypernatremia 2/2 poor po fluid intake Corrected serum Na improved to 142 today Wt 86.8 kgs Total body water 43.4L Free water deficit 5.6L plus ongoing losses Insensible water loss 1L/d Urine free water loss at least 1L/d Dc D5W gtt Clinimix as above Encourage po fluid intake as able # Acute respiratory failure 2/2 covid PNA On humidified O2 suppl TTE +diastolic dysfxn Do not limit po free water intake as above Lasix d/c'ed Incentive spirometry q2h when awake # Htn Cont same BP med regimen # Delirium Seroquel d/c'ed per daughter request Haldol prn # Debility OOB w/ PT/OT # Dispo Pt not appropriate for home dc d/t needing 24/7 care. Daughter is hesitant on LTAC d/t prior experience at LTAC in [place].
--- NOTE | 2021-07-31 10:31 | P.PN ---
Subjective Date of Service: 07/31/21 Primary Care Provider: Dr. Malin Chief Complaint: Respiratory failure patient still have shortness of breath Patient is now doing well still on maximum dose of 400% FiO2 TPN delirious Review of Systems General: Weakness Respiratory: Shortness of Breath Physical Examination - Vital Signs Temperature: 98.9 F Blood Pressure: 137/69 Pulse: 89 Respirations: 20 Pulse Ox (%): 98 - Physical Exam General: Delirious, Unresponsive Other Physical/Emotional Findings: Lives at home with family - Studies Medications List Reviewed: Yes Assessment & Plan - Problems (Diagnosis) (1) COVID-19 Current Visit: Yes Status: Acute Plan: Respiratory failure delirious on TPN renal function improving hyponatremia resolved white count is declining prognosis poor
[2021-07-31] MEDS: ACETAMINOPHEN 500 MG TAB PO PRN ×2 (11:28→16:55)
[2021-07-31 13:24] LABS: Arterial Blood Carboxyhemoglob 1.4 % (0-1.5); Blood Gas Oxyhemoglobin 92.2 % (94-97); Blood O2 Saturation 94.6 % (92-98.5)
[2021-07-31] MEDS: AA 4.25 %/D5W/ELECTROLYTES 2,000 ML with MULTIVITAMINS INJ 10 ML IV SCH ×2 (15:29)
[2021-07-31] MEDS: ENOXAPARIN 30 MG/0.3 ML SQ SCH (16:54)
[2021-07-31] MEDS: TAMSULOSIN 0.4 MG SR CAP PO SCH (20:34)
[2021-07-31] MEDS: INSULIN GLARGINE 100 UNITS/ML SQ SCH (20:35)
[2021-07-31] MEDS: QUETIAPINE 25 MG TAB PO SCH (20:46)
--- NOTE | 2021-08-01 00:49 | P.PN ---
Date of Service: 07/29/21 Subjective Patient oxygenation continues to improve. Currently patient is on 15 L on wall oxygen. Oxygen saturations are 93-94%. Family visiting at bedside Review of Systems 10-point ROS is otherwise unremarkable Physical Examination - Vital Signs Reviewed - Physical Exam General: Confused Respiratory: Clear to auscultation bilaterally, Normal air movement Cardiovascular: Regular rate/rhythm, Normal S1 S2 Gastrointestinal: Normal bowel sounds, No tenderness Neurological: Normal speech, Normal tone, Normal affect Assessment & Plan - Problems (Diagnosis) (1) COVID-19 pneumonia Current Visit: Yes Status: Acute (2) Altered mental state Onset Date: 10/28/18 Current Visit: No Status: Acute Qualifiers: Altered mental status type: unspecified Qualified Code(s): R41.82 - Altered mental status, unspecified (3) Confusion Onset Date: 10/28/18 Current Visit: No Status: Acute (4) Acute kidney injury Onset Date: 07/22/18 Current Visit: No Status: Chronic (5) DM2 (diabetes mellitus, type 2) Onset Date: 07/22/18 Current Visit: No Status: Chronic Qualifiers: Diabetes mellitus watermelon inspector insulin use: without jail use Diabetes mellitus complication status: with hyperglycemia Qualified Code(s): E11.65 - Type 2 diabetes mellitus with hyperglycemia (6) HTN (hypertension) Onset Date: 07/22/18 Current Visit: No Status: Chronic Qualifiers: Hypertension type: essential hypertension Qualified Code(s): I10 - Essential (primary) hypertension PLAN: Continue with plan of care as mentioned below: 1. Continue with IV steroids; continue to wean down slowly 2. Morphine made patient's sleep so family requesting Seroquel 3. Repeat chest x-ray as needed 4. O2 per protocol; down to 15 L wall oxygen 5. Pulmonary consultation appreciated 6. Continue with albuterol inhaler therapy; 7. Monitor labs closely 8. Family refusing long-term acute care hospital or snf facility placement. Hopefully, he continues to improve and we can work on getting him home soon 9. GI and DVT prophylaxis
--- NOTE | 2021-08-01 00:53 | P.PN ---
Date of Service: 07/30/21 Subjective Patient oxygenation is stable. Started on TPN per Nephrology. Also given D5W. Review of Systems 10-point ROS is otherwise unremarkable Physical Examination - Vital Signs Reviewed - Physical Exam General: Confused; follows some commands Respiratory: Diminished breath sounds bilaterally; Cardiovascular: Regular rate/rhythm, Normal S1 S2 Gastrointestinal: Normal bowel sounds, No tenderness Neurological: Moves all extremities; no focal deficits Assessment & Plan - Problems (Diagnosis) (1) COVID-19 pneumonia Current Visit: Yes Status: Acute (2) Altered mental state Onset Date: 10/28/18 Current Visit: No Status: Acute Qualifiers: Altered mental status type: unspecified Qualified Code(s): R41.82 - Altered mental status, unspecified (3) Confusion Onset Date: 10/28/18 Current Visit: No Status: Acute (4) Acute kidney injury Onset Date: 07/22/18 Current Visit: No Status: Chronic (5) DM2 (diabetes mellitus, type 2) Onset Date: 07/22/18 Current Visit: No Status: Chronic Qualifiers: Diabetes mellitus sql ssrs developer insulin use: without halfway use Diabetes mellitus complication status: with hyperglycemia Qualified Code(s): E11.65 - Type 2 diabetes mellitus with hyperglycemia (6) HTN (hypertension) Onset Date: 07/22/18 Current Visit: No Status: Chronic Qualifiers: Hypertension type: essential hypertension Qualified Code(s): I10 - Essential (primary) hypertension PLAN: Continue with plan of care as mentioned below: 1. Continue with IV steroids; continue to wean down slowly 2. Morphine made patient's sleep so family requesting Seroquel 3. Repeat chest x-ray as needed 4. O2 per protocol; down to 10L wall oxygen 5. Pulmonary consultation appreciated 6. Nebulizer therapy 7. Monitor labs closely 8. Family does not want LTAC/SNF. Family wants to go home with home health once he is stable for discharge 9. GI and DVT prophylaxis
[2021-08-01] MEDS: HYDRALAZINE HCL 20 MG/ML VIAL IV PRN ×2 (00:58→08:36)
--- NOTE | 2021-08-01 00:58 | P.PN ---
Date of Service: 07/31/21 Subjective Patient was given Seroquel and has slept most of the night. Patient was also on TPN and fluids. Patient is on high-flow oxygen. Now at 100% FiO2. Renal functions slightly improved. Review of Systems 10-point ROS is otherwise unremarkable Physical Examination - Vital Signs Reviewed - Physical Exam General: Confused; follows some commands Respiratory: Diminished breath sounds bilaterally; Cardiovascular: Regular rate/rhythm, Normal S1 S2 Gastrointestinal: Normal bowel sounds, No tenderness Neurological: Moves all extremities; no focal deficits Assessment & Plan - Problems (Diagnosis) (1) COVID-19 pneumonia Current Visit: Yes Status: Acute (2) Altered mental state Onset Date: 10/28/18 Current Visit: No Status: Acute Qualifiers: Altered mental status type: unspecified Qualified Code(s): R41.82 - Altered mental status, unspecified (3) Confusion Onset Date: 10/28/18 Current Visit: No Status: Acute (4) Acute kidney injury Onset Date: 07/22/18 Current Visit: No Status: Chronic (5) DM2 (diabetes mellitus, type 2) Onset Date: 07/22/18 Current Visit: No Status: Chronic Qualifiers: Diabetes mellitus termite treater helper insulin use: without termite treater helper use Diabetes mellitus complication status: with hyperglycemia Qualified Code(s): E11.65 - Type 2 diabetes mellitus with hyperglycemia (6) HTN (hypertension) Onset Date: 07/22/18 Current Visit: No Status: Chronic Qualifiers: Hypertension type: essential hypertension Qualified Code(s): I10 - Essential (primary) hypertension PLAN: Continue with plan of care as mentioned below: 1. Continue with IV steroids; continue to wean down slowly as tolerated 2. Seroquel will also be discontinued per family's request. Family will stay with patient 3. Will repeat chest x-ray 4. Patient is on AIRVO at 100% FiO2 5. Pulmonary consultation appreciated 6. Nebulizer therapy prn 7. Monitor labs closely 8. Family does not want LTAC/SNF. Family wants to go home with home health once he is stable for discharge 9. GI and DVT prophylaxis
[2021-08-01 04:04] LABS: Absolute Lymphocytes (CBC) 0.1 K/uL (0.7-4.9); Basophils % 0.1 % (0-1.3); Hematocrit 24.6 % (39.6-49.0); Lymphocytes % 1.6 % (15.3-44.8); MPV 9.8 fL (7.6-11.3); RBC Red Blood Cell Count 2.75 M/uL (4.33-5.43)
[2021-08-01] MEDS: ACETAMINOPHEN 500 MG TAB PO PRN (04:08)
[2021-08-01 04:20] LABS: Magnesium 3.3 mg/dL (1.8-2.4); Potassium 5.1 mmol/L (3.5-5.1)
[2021-08-01] MEDS: MORPHINE 4 MG/ML SYR IM PRN ×2 (04:46→23:08)
[2021-08-01] MEDS: LEVOTHYROXINE SOD 0.025 MG TAB PO SCH (06:00)
[2021-08-01] MEDS: carvediloL 3.125 MG TAB PO SCH ×2 (06:00→17:06)
--- NOTE | 2021-08-01 07:20 | RAD REPORT ---
EXAM DESCRIPTION: RAD - Chest Single View - 08/01/2021 7:02 am CLINICAL HISTORY: Respiratory failure COMPARISON: Portable July 28 TECHNIQUE: AP portable chest image was obtained 08/01/2021 7:02 am . FINDINGS: Lung volumes are quite low. Bibasilar airspace opacification is present. Upper lobes are r elatively spared. Bilateral pleural effusions are present, less prominent on the right compared to e prior examination. Heart size is prominent. Central vasculature prominent as well. No pneumothorax. IMPRESSION: Limited study showing bibasilar edema or infiltrate. Bilateral pleural effusions, decreased in size on the right compared to July 28.
[2021-08-01] MEDS: INSULIN -REGULAR HUMAN 50 UNIT/0.5 ML ML SQ SCH ×4 (07:30→20:52)
[2021-08-01] MEDS: METHYLPREDNISOLONE 40 MG INJ IV SCH ×2 (07:35→20:53)
[2021-08-01] MEDS: PANTOPRAZOLE 40 MG INJ IVP SCH ×2 (07:35→20:53)
[2021-08-01] MEDS: GLUCERNA SHAKE 237 ML CAN PO SCH ×3 (08:17→20:52)
[2021-08-01] MEDS: THIAMINE HCL 100 MG TABLET PO SCH (08:17)
[2021-08-01] MEDS: VITAMIN D 1000 UNIT TAB PO SCH (08:17)
[2021-08-01] MEDS: ROSUVASTATIN 10 MG TAB PO SCH (08:17)
[2021-08-01] MEDS ORDERED: BARICITINIB 2 MG TABLET PO SCH ×2 (09:00)
[2021-08-01] MEDS ORDERED: NA CHLORIDE 0.9% 1,000 ML IV SCH (10:00)
[2021-08-01] MEDS: CALCITROL 0.25 MCG CAP PO SCH (10:22)
[2021-08-01] MEDS: ACETAMINOPHEN 650MG/RECT SUPP PR PRN (12:03)
--- NOTE | 2021-08-01 16:36 | P.PN ---
Subjective Date of Service: 08/01/21 Primary Care Provider: Dr. Malin Chief Complaint: Respiratory failure patient still have shortness of breath Subjective: Other (Confusion noted. Daughter at bedside.) Physical Examination - Vital Signs Temperature: 98.3 F Blood Pressure: 137/63 Pulse: 82 Respirations: 29 Pulse Ox (%): 94 - Physical Exam Other Physical/Emotional Findings: Lives at home with family - Studies Medications List Reviewed: Yes Assessment & Plan Discharge Plan: Home Plan to discharge in: Greater than 2 days Physician Review Additional Text: COVID: positive CXR: COMPARISON: Chest Single View dated 10/24/2018; Chest Single View dated 07/20/2018; Chest Single View dated 12/27/2016; Chest Single View dated 12/25/2016 FINDINGS: Portable technique limits examination quality. Mild bilateral interstitial lung opacities are present which may represent pulmonary edema. The heart is moderately enlarged. No displaced fractures.Sternotomy wires present. IMPRESSION: Mild CHF suspected. Renal US: COMPARISON: Renal Ultrasound-Complete dated 07/21/2018 FINDINGS: The right kidney measures 9.8 x 5.6 x 4.1 cm. The left kidney measures 9.0 x 5.4 x 4.7 cm. Cortical thickness is normal. Echogenicity is slightly increased. No hydronephrosis or suspicious renal mass. A 14 millimeter cyst is present in the lower right kidney. A 2.3 cm cyst is present in the left kidney. No bladder wall thickening or mass. No intraluminal stone or mass. IMPRESSION: No hydronephrosis or suspicious renal mass. Increased cortical echogenicity is present consistent with medical renal disease. Body habitus artifact may contribute to this as well. Small bilateral renal cysts. ECHO: MEASUREMENTS (cm) DIASTOLIC (NORMALS) SYSTOLIC (NORMALS) IVSd 1.2 (0.6-1.2) LA Diam 3.8 (1.9-4.0) LVEF 60% LVIDd 5.9 (3.5-5.7) LVIDs 1.0 (2.0-3.5) %FS 33% LVPWd 1.3 (0.6-1.2) Ao Diam 3.5 (2.0-3.7) 2 DIMENSIONAL ASSESSMENT: RIGHT ATRIUM: NORMAL LEFT ATRIUM: NORMAL RIGHT VENTRICLE: NORMAL LEFT VENTRICLE: LEFT VENTRICULAR HYPERTROPHY TRICUSPID VALVE: NORMAL MITRAL VALVE: NORMAL PULMONIC VALVE: NORMAL AORTIC VALVE: NORMAL PERICARDIAL EFFUSION: NONE AORTIC ROOT: NORMAL LEFT VENTRICULAR WALL MOTION: DIASTOLIC DYSFUNCTION DOPPLER/COLOR FLOW: DECREASED LEFT VENTRICULAR COMPLIANCE COMMENTS: DIASTOLIC DYSFUNCTION. DECREASED LEFT VENTRICULAR COMPLIANCE. NORMAL EJECTION FRACTION. LEFT VENTRICULAR HYPERTROPHY. NO EFFUSION. Current Medications: The patient on include 1. Flomax. 2. Lovenox. 3. Carvedilol 6.25 b.i.d. 4. Rosuvastatin. 5. Lasix 40 b.i.d. 6. Levothyroxine. 7. Insulin, 10 units of Lantus at bedtime. 8. Solu-Medrol. 9. Thiamin. 10. Morphine. 11. Calcitriol. 12. Cholecalciferol. 13. Assessment And Plan: 1. Acute kidney injury on advanced chronic kidney disease, will possible secondary to overdiuresis with UTI showing Enterococcus: We will discuss with nephrology. Patient remains on IV Lasix. Will start IV Levaquin. 2. Disproportion in the BUN and creatinine secondary to the diuresis and secondary to cardiorenal state/catabolic state/GI bleed supported with the drop in hemoglobin: Continue IV Lasix. Continue with IV fluids per nephrology. 3. Hypertension, controlled, optimal. Continue current medications. We will utilize the blood pressure for more diuresis. I am going to go ahead and continue current Lasix and carvedilol. 4. Acidosis secondary to renal failure, recovered, resolved. 5. Hypokalemia, status post supplement. Continue with recommendations by nephrology 6. Respiratory failure, multifactorial, over volume/COVID pneumonia. Continue diuresis and IV steroids. Continue with Covid treatment. 7. COVID pneumonia: Continue to wean off oxygen. Currently on BiPAP. Will discuss with pulmonology. 8. Anemia: Continue to monitor closely. Advance care planning: Discussed in detail with daughter. Patient now DNR. Plan of care addressed with patient daughter. Time Spent Managing Pts Care (In Minutes): 55
[2021-08-01] MEDS: ENOXAPARIN 30 MG/0.3 ML SQ SCH (16:40)
[2021-08-01] MEDS ORDERED: Levofloxacin 750mg IV 750 MG/150 ML BAG IV SCH (17:00)
[2021-08-01] MEDS: AA 4.25 %/D5W/ELECTROLYTES 2,000 ML, Lipids 20% 250 ML with MULTIVITAMINS INJ 10 ML IV SCH ×3 (17:16)
[2021-08-01] MEDS: TAMSULOSIN 0.4 MG SR CAP PO SCH (20:51)
[2021-08-01] MEDS: INSULIN GLARGINE 100 UNITS/ML SQ SCH (20:52)
[2021-08-01] MEDS: QUETIAPINE 25 MG TAB PO SCH (20:53)
[2021-08-01] MEDS ORDERED: NA CHLORIDE 0.9% 1,000 ML ONE (23:03)
--- NOTE | 2021-08-02 01:03 | PN ---
Date of Progress Note: 08/01/2021 Chief Complaint: Acute on chronic kidney injury, high BUN and creatinine ratio, serum creatinine is plateauing. Patient has Galindo catheter. History: Patient has multiple medical problems including COVID pneumonia, hypoxemic respiratory fail ure, BPH, dysphagia. Physical Examination: Vital Signs: Blood pressure is 120/69, heart rate 89, SpO2 98%. The patient appears at his stated a ge. HEENT: Atraumatic, normocephalic. Respiratory: Symmetric chest expansion. Extremities: Slight edema. Impression: 1.Acute on chronic kidney injury. Continue IV fluids. Patient received 1 dose of Lasix to control hyperkalemia. Plan is to monitor potassium level and start Kayexalate as needed. 2.Benign prostatic hypertrophy. Continue tamsulosin. 3.Dysphagia. Patient is on pureed diet. 4.Hypernatremia. Corrected sodium level improved and patient may require D5W for hypernatremia cont rol. 5.Acute respiratory failure secondary to COVID pneumonia. 6.Further recommendation from Pulmonary and primary team. MARIA VICTORIA/MODL Voice ID: [id number] Report ID: [id number]
[2021-08-02] MEDS: HYDROMORPHONE HCL 0.5 MG/0.5 ML INJ IV PRN ×3 (02:00→23:54)
[2021-08-02 04:31] LABS: Absolute Lymphocytes (CBC) 0.1 K/uL (0.7-4.9); Basophils % 0.3 % (0-1.3); Hematocrit 22.3 % (39.6-49.0); Lymphocytes % 1.6 % (15.3-44.8); MPV 10.2 fL (7.6-11.3); RBC Red Blood Cell Count 2.45 M/uL (4.33-5.43)
[2021-08-02 05:20] LABS: Blood Morphology Comment NOT SEEN (NOT SEEN); Platelet Estimate DECR
[2021-08-02 05:47] LABS: Ferritin 2295.1 ng/mL (26-388)
[2021-08-02 05:48] LABS: Magnesium 3.2 mg/dL (1.8-2.4); Potassium 5.9 mmol/L (3.5-5.1)
[2021-08-02] MEDS: LEVOTHYROXINE SOD 0.025 MG TAB PO SCH (06:00)
[2021-08-02] MEDS: carvediloL 3.125 MG TAB PO SCH ×2 (06:00→17:58)
--- NOTE | 2021-08-02 06:07 | P.PN ---
Subjective Date of Service: 08/02/21 Primary Care Provider: Dr. Malin Chief Complaint: Respiratory failure patient still have shortness of breath Subjective: Worsening, Other (Patient continues to decline.) Physical Examination - Vital Signs Temperature: 97.8 F Blood Pressure: 166/76 Pulse: 77 Respirations: 37 Pulse Ox (%): 92 - Physical Exam Other Physical/Emotional Findings: Lives at home with family - Studies Medications List Reviewed: Yes Assessment & Plan Discharge Plan: Home Plan to discharge in: Greater than 2 days Physician Review Additional Text: COVID: positive CXR: COMPARISON: Chest Single View dated 10/24/2018; Chest Single View dated 07/20/2018; Chest Single View dated 12/27/2016; Chest Single View dated 12/25/2016 FINDINGS: Portable technique limits examination quality. Mild bilateral interstitial lung opacities are present which may represent pulmonary edema. The heart is moderately enlarged. No displaced fractures.Sternotomy wires present. IMPRESSION: Mild CHF suspected. Renal US: COMPARISON: Renal Ultrasound-Complete dated 07/21/2018 FINDINGS: The right kidney measures 9.8 x 5.6 x 4.1 cm. The left kidney measures 9.0 x 5.4 x 4.7 cm. Cortical thickness is normal. Echogenicity is slightly increased. No hydronephrosis or suspicious renal mass. A 14 millimeter cyst is present in the lower right kidney. A 2.3 cm cyst is present in the left kidney. No bladder wall thickening or mass. No intraluminal stone or mass. IMPRESSION: No hydronephrosis or suspicious renal mass. Increased cortical echogenicity is present consistent with medical renal disease. Body habitus artifact may contribute to this as well. Small bilateral renal cysts. ECHO: MEASUREMENTS (cm) DIASTOLIC (NORMALS) SYSTOLIC (NORMALS) IVSd 1.2 (0.6-1.2) LA Diam 3.8 (1.9-4.0) LVEF 60% LVIDd 5.9 (3.5-5.7) LVIDs 1.0 (2.0-3.5) %FS 33% LVPWd 1.3 (0.6-1.2) Ao Diam 3.5 (2.0-3.7) 2 DIMENSIONAL ASSESSMENT: RIGHT ATRIUM: NORMAL LEFT ATRIUM: NORMAL RIGHT VENTRICLE: NORMAL LEFT VENTRICLE: LEFT VENTRICULAR HYPERTROPHY TRICUSPID VALVE: NORMAL MITRAL VALVE: NORMAL PULMONIC VALVE: NORMAL AORTIC VALVE: NORMAL PERICARDIAL EFFUSION: NONE AORTIC ROOT: NORMAL LEFT VENTRICULAR WALL MOTION: DIASTOLIC DYSFUNCTION DOPPLER/COLOR FLOW: DECREASED LEFT VENTRICULAR COMPLIANCE COMMENTS: DIASTOLIC DYSFUNCTION. DECREASED LEFT VENTRICULAR COMPLIANCE. NORMAL EJECTION FRACTION. LEFT VENTRICULAR HYPERTROPHY. NO EFFUSION. Follow up CXR 08/01/2021: COMPARISON: Portable July 28 TECHNIQUE: AP portable chest image was obtained 08/01/2021 7:02 am . FINDINGS: Lung volumes are quite low. Bibasilar airspace opacification is present. Upper lobes are relatively spared. Bilateral pleural effusions are present, less prominent on the right compared to the prior examination. Heart size is prominent. Central vasculature prominent as well. No pneumothorax. IMPRESSION: Limited study showing bibasilar edema or infiltrate. Bilateral pleural effusions, decreased in size on the right compared to July 28. Physical Exam: GENERAL: Patient appears confused VITAL SIGNS: Reviewed HEENT: Neck supple LUNGS: Currently on BiPAP HEART: Regular rate and rhythm, no appreciable gallops, rubs, murmurs or extra heart sounds ABDOMEN: Soft, nontender, and nondistended. Positive bowel sounds. No hepatosplenomegaly was noted. EXTREMITIES: Without any cyanosis, clubbing, rash, lesions or peripheral edema. NEUROLOGIC: Appears confused SKIN: Normal color, turgor and temperature. No ulcerations or rashes noted. Impression: Dyspnea secondary to bilateral Covid pneumonia with hypoxia Elevated troponin likely ischemic demand versus NSTEMI Hypertension Hyperlipidemia BPH Diabetes mellitus type 2 with hyperglycemia Acute on chronic renal disease stage 5 with nonanion gap metabolic acidosis and hyperkalemia Hypothyroidism Diabetic neuropathy Plan: Dyspnea secondary to bilateral Covid pneumonia with hypoxia complicated with acute on chronic diastolic CHF: Patient continues to decline. Currently on BiPAP at 100%. Patient with worsening renal function. Case discussed with nephrology. Patient requires dialysis. Spoke with daughter. Daughter agrees with dialysis. Surgery consulted for dialysis catheter placement and dialysis to be started. Will discuss with pulmonology. Continue with nephrology recommendations and plan of care. Elevated troponin likely ischemic demand versus NSTEMI: Echo reveals diastolic dysfunction. Normal ejection fraction noted. No effusion noted. Patient would benefit with cardiac stress test as an outpatient.. Hypertension: Continue carvedilol Hyperlipidemia: Continue Crestor 40 mg daily BPH: Continue Flomax 0.4 mg daily Diabetes mellitus type 2 with hyperglycemia: Continue Accu-Cheks and sliding scale. Hemoglobin A1c 6.2. Continue to adjust Lantus for better control. Acute on chronic renal disease stage 5 with nonanion gap metabolic acidosis and hyperkalemia: Renal function continues to decline. Patient to start dialysis. Hypothyroidism: Continue with levothyroxine 25 mcg daily Diabetic neuropathy: Continue gabapentin. Hold if with increase sedation. Code Status: Patient is DO NOT RESUSCITATE DVT prophylaxis: Heparin Advanced Care Planning-30 minutes: Home at discharge. Daughter does not want patient go to go to long-term acute care facility placement Time Spent Managing Pts Care (In Minutes): 55
[2021-08-02] MEDS ORDERED: GLUCAGON 1 MG/VIAL IM PRN (07:30)
[2021-08-02] MEDS ORDERED: D50W 25 GM/50 ML SYRINGE IV PRN (07:30)
[2021-08-02] MEDS: PANTOPRAZOLE 40 MG INJ IVP SCH ×2 (07:52→21:00)
[2021-08-02] MEDS: METHYLPREDNISOLONE 40 MG INJ IV SCH ×2 (07:52→21:00)
[2021-08-02] MEDS: FUROSEMIDE 40 MG/4 ML VIAL IV SCH (07:52)
[2021-08-02] MEDS: GLUCERNA SHAKE 237 ML CAN PO SCH ×3 (07:55→19:42)
[2021-08-02] MEDS: ROSUVASTATIN 10 MG TAB PO SCH (07:55)
[2021-08-02] MEDS: BARICITINIB 2 MG TABLET PO SCH (07:56)
[2021-08-02] MEDS: VITAMIN D 1000 UNIT TAB PO SCH (07:56)
[2021-08-02] MEDS: THIAMINE HCL 100 MG TABLET PO SCH (07:56)
[2021-08-02] MEDS: ACETAMINOPHEN 650MG/RECT SUPP PR PRN (08:58)
[2021-08-02] MEDS ORDERED: NS 0.9% VIAL 10 ML ONE ×3 (11:00→12:14)
[2021-08-02] MEDS ORDERED: NA CHLORIDE 0.9% 100 ML IV ONE ×3 (11:01→12:28)
[2021-08-02] MEDS ORDERED: HEPARIN 5000 UNIT/ML 1 ML VIAL ONE (11:02)
[2021-08-02] MEDS ORDERED: LIDOCAINE 1% MPF 5 ML VIAL ONE (11:28)
[2021-08-02] MEDS ORDERED: FENTANYL CITR 100 MCG/2 ML ONE (11:28)
[2021-08-02] MEDS ORDERED: propofoL 200 MG/20 ML VIAL IV ONE (11:28)
[2021-08-02] MEDS ORDERED: MIDAZOLAM HCL 2 MG/2 ML INJ ONE (11:29)
[2021-08-02] MEDS ORDERED: NA CHLORIDE 0.9% 500 ML ONE (11:31)
[2021-08-02] MEDS ORDERED: NS 0.9% VIAL 0 ML ONE (11:33)
[2021-08-02] MEDS: LIDOCAINE 1% MPF 30 ML VIAL ONE ×2 (11:38→11:39)
[2021-08-02] MEDS: HEPARIN 5000 UNIT/ML 1 ML VIAL ONE ×2 (11:45→12:05)
[2021-08-02] MEDS: INSULIN -REGULAR HUMAN 50 UNIT/0.5 ML ML SQ SCH ×3 (12:00→18:00)
[2021-08-02] MEDS ORDERED: Phenylephrine HCl 10 MG/ML 1 ML VIAL ONE ×2 (12:00→12:29)
[2021-08-02] MEDS ORDERED: CEFAZOLIN SODIUM 1 GM/VIAL ONE (12:14)
--- NOTE | 2021-08-02 12:16 | P.OP ---
Sales Administration Specialist: NONE,NONE Preoperative diagnosis: ARF, Hyperkalemia Postoperative diagnosis: same Primary procedure: RIJ Tesio, Fluroscopy Secondary procedure: LIJ Central line, Fluoroscopy Anesthesia: MAC Estimated blood loss: min Specimen: None Findings: Normal Anatomy Complications: None Transferred to: Recovery Room Condition: Serious
--- NOTE | 2021-08-02 14:42 | P.PN ---
Subjective Date of Service: 08/02/21 Primary Care Provider: Dr. Malin Chief Complaint: Respiratory failure patient still have shortness of breath, AMS poor respon Subjective: NPO (Patient does not respond to any voice command open eyes spontaneously), Worsening Patient had a drop in his hemoglobin and plan for blood transfusion today Review of Systems Not obtain Physical Examination - Vital Signs Temperature: 98.7 F Blood Pressure: 100/44 Pulse: 84 Respirations: 20 Pulse Ox (%): 92 - Physical Exam General: Alert (Poor response open eyes spontaneously on BiPAP) HEENT: Atraumatic Neck: Supple, JVD not distended, No Thyromegaly Respiratory: Crackles/rales Cardiovascular: Normal S1 S2 (Edema more prominent on the upper extremity), Ed elda (Patient has anasarca all over), Systolic murmur Gastrointestinal: Normal bowel sounds, W/out hepatomegaly, No ascites, No tenderness Musculoskeletal: No clubbing, Swelling Neurological: Other (Patient poorly responsive) Other Physical/Emotional Findings: Lives at home with family - Studies Medications List Reviewed: Yes Assessment And Plan Physician Review Additional Text: COVID: positive CXR: COMPARISON: Chest Single View dated 10/24/2018; Chest Single View dated 07/20/2018; Chest Single View dated 12/27/2016; Chest Single View dated 12/25/2016 FINDINGS: Portable technique limits examination quality. Mild bilateral interstitial lung opacities are present which may represent pulmonary edema. The heart is moderately enlarged. No displaced fractures.Sternotomy wires present. IMPRESSION: Mild CHF suspected. Renal US: COMPARISON: Renal Ultrasound-Complete dated 07/21/2018 FINDINGS: The right kidney measures 9.8 x 5.6 x 4.1 cm. The left kidney measures 9.0 x 5.4 x 4.7 cm. Cortical thickness is normal. Echogenicity is slightly increased. No hydronephrosis or suspicious renal mass. A 14 millimeter cyst is present in the lower right kidney. A 2.3 cm cyst is present in the left kidney. No bladder wall thickening or mass. No intraluminal stone or mass. IMPRESSION: No hydronephrosis or suspicious renal mass. Increased cortical echogenicity is present consistent with medical renal disease. Body habitus artifact may contribute to this as well. Small bilateral renal cysts. ECHO: MEASUREMENTS (cm) DIASTOLIC (NORMALS) SYSTOLIC (NORMALS) IVSd 1.2 (0.6-1.2) LA Diam 3.8 (1.9-4.0) LVEF 60% LVIDd 5.9 (3.5-5.7) LVIDs 1.0 (2.0-3.5) %FS 33% LVPWd 1.3 (0.6-1.2) Ao Diam 3.5 (2.0-3.7) 2 DIMENSIONAL ASSESSMENT: RIGHT ATRIUM: NORMAL LEFT ATRIUM: NORMAL RIGHT VENTRICLE: NORMAL LEFT VENTRICLE: LEFT VENTRICULAR HYPERTROPHY TRICUSPID VALVE: NORMAL MITRAL VALVE: NORMAL PULMONIC VALVE: NORMAL AORTIC VALVE: NORMAL PERICARDIAL EFFUSION: NONE AORTIC ROOT: NORMAL LEFT VENTRICULAR WALL MOTION: DIASTOLIC DYSFUNCTION DOPPLER/COLOR FLOW: DECREASED LEFT VENTRICULAR COMPLIANCE COMMENTS: DIASTOLIC DYSFUNCTION. DECREASED LEFT VENTRICULAR COMPLIANCE. NORMAL EJECTION FRACTION. LEFT VENTRICULAR HYPERTROPHY. NO EFFUSION. Follow up CXR 08/01/2021: COMPARISON: Portable July 28 TECHNIQUE: AP portable chest image was obtained 08/01/2021 7:02 am . FINDINGS: Lung volumes are quite low. Bibasilar airspace opacification is present. Upper lobes are relatively spared. Bilateral pleural effusions are present, less prominent on the right compared to the prior examination. Heart size is prominent. Central vasculature prominent as well. No pneumothorax. IMPRESSION: Limited study showing bibasilar edema or infiltrate. Bilateral pleural effusions, decreased in size on the right compared to July 28. Current Medications: The patient on include 1. Flomax. 2. Lovenox. 3. Carvedilol 6.25 b.i.d. 4. Rosuvastatin. 5. Lasix 40 b.i.d. 6. Levothyroxine. 7. Insulin, 10 units of Lantus at bedtime. 8. Solu-Medrol. 9. Thiamin. 10. Morphine. 11. Calcitriol. 12. Cholecalciferol. 13. Assessment And Plan: 1. Acute kidney injury on advanced chronic kidney disease, over volume. Nonoliguric with severe uremia comatose state hyperkalemia: We will start the patient on dialysis today consult surgery for catheter placement patient did not require dialysis today and tomorrow We will continue to monitor the patient closely We will use mannitol to avoid any disequilibrium syndrome Family agreed to proceed with renal replacement therapy 2. Disproportion in the BUN and creatinine secondary to the diuresis and secondary to cardiorenal state/catabolic state with uremic symptoms and hyperkalemia as above we will start the patient on renal replacement therapy 3. Hypertension, controlled, optimal. Continue current medications. We will utilize the blood pressure for more diuresis. I am going to go ahead and continue current Lasix and carvedilol. 4. Acidosis secondary to renal failure, recovered, resolved. 5. Hyperkalemia, with the present of renal failure patient cannot be started on dialysis we will dialyze the patient for low potassium bath 6. Respiratory failure, multifactorial, over volume/COVID pneumonia. We will continue diuresis. We will challenge the patient on the dialysis with ultrafiltration to establish better volume control 7. COVID pneumonia as by primary. 8- anasarca secondary to malnourished/cardiorenal as above continue diuresis we will try to establish better volume control with the dialysis 9- anemia status post transfusion we will send for anemia work-up will start the patient on JOE Time spent examining the patient [id number] placing order reviewing data including radiology and lab discussing the case with other team members including nursing discussing the case with other subspecialist including hospitalist pulmonary 45-minute
--- NOTE | 2021-08-02 15:05 | PREOPCON ---
Date of Consultation: 08/02/2021 Reason: The patient needs dialysis. History Of Present Illness: The patient is an 81-year-old gentleman with multiple medical problems, admitted to the hospital with COVID pneumonia with respiratory distress with fluid overload and curre ntly has hyperkalemia and needs emergent dialysis. He is unable to provide any review of systems as he is on BiPAP on 100% and history is obtained from the computer and family. Review of Systems: Otherwise unremarkable. Past Medical History: Hypertension, diabetes, high cholesterol, history of colon cancer, hypothyroid ism, chronic kidney disease. Past Surgical History: Quadruple bypass, it was 21 years ago. Left hip replacement, colectomy, righ t thyroid surgery. Allergies: NONE. Social History: The patient does not smoke or drink alcohol. Family History: Noncontributory. Physical Examination: Vital Signs: Significant for respiratory rate of 37. He is afebrile. His blood pressure is 166/76, pulse rate is 77. General: He is awake, but not appropriately responding. He does move. Head and Neck: No masses. Chest: Diminished breath sounds. Heart: S1, S2. Abdomen: Soft. Extremities: Neurovascularly intact. Neurologic: Nonfocal. Laboratory Data: Reviewed. His white count is 6 with a left shift. H and H are 7.6 and 22.3. INR i s 1.15. Blood gas reviewed. His potassium is 5.9. BUN is 142, creatinine is 3.78. Chest x-ray rev iewed as well. Shows bibasilar edema or infiltrate. Bilateral pleural effusion decreased in size on the right compared to July 28. Assessment: An 81-year-old gentleman with multiple medical problems with acute renal failure and hyp erkalemia, needs dialysis and please note he also has poor peripheral IV access and needs a central l ine as well. Therefore informed consent was obtained from the family for placement of Steven cathet er and placement of central line. They understand risks, benefits, and alternatives and agreed to pr ocedure. /MODL Voice ID: [id number] Report ID: [id number]
[2021-08-02] MEDS: AA 4.25 %/D5W/ELECTROLYTES 2,000 ML with MULTIVITAMINS INJ 10 ML IV SCH ×2 (16:47)
--- NOTE | 2021-08-02 16:53 | RAD REPORT ---
EXAM DESCRIPTION: RAD - Chest Single View - 08/02/2021 4:08 pm CLINICAL HISTORY: S/P Tesio and Central line COMPARISON: Chest Single View dated 08/01/2021; Chest Single View dated 07/28/2021; Chest Single View dated 07/25/2021; Chest Single View dated 07/24/2021 FINDINGS: Lines: Right IJ approach dialysis catheter with tip overlying the SVC.Left IJ approach mayte tral venous line with tip overlying the SVC Lungs: Consolidative airspace disease in the left lung. There is right basilar opacities. Pleural: Bilateral pleural effusions. Cardiac: Cardiomegaly. Sternotomy. Bones: No acute fractures. Other: IMPRESSION: Right IJ approach dialysis catheter and left IJ approach central venous line with the ti ps in satisfactory position. No pneumothorax. Widespread bilateral airspace disease and pleural effus ions may reflect multifocal pneumonia and/or edema.
--- NOTE | 2021-08-02 16:57 | RAD REPORT ---
EXAM DESCRIPTION: RAD - Fluoroscopy <1 Hour - 08/02/2021 3:07 pm CLINICAL HISTORY: Venous catheter insertion. PORTACATH AND CENTRAL LINE PLACEMENT COMPARISON: No comparisons FINDINGS: Fluoroscopic imaging is submitted from placement of a venous catheter. Details of the pro cedure not available. Fluoroscopy time: 4 minutes
[2021-08-02] MEDS: ENOXAPARIN 30 MG/0.3 ML SQ SCH (17:00)
[2021-08-02] MEDS ORDERED: ALBUMIN HUMAN 25% 100 ML IV ONE (17:36)
[2021-08-02] MEDS: TAMSULOSIN 0.4 MG SR CAP PO SCH (19:42)
[2021-08-02] MEDS: QUETIAPINE 25 MG TAB PO SCH (19:42)
[2021-08-02] MEDS: INSULIN GLARGINE 100 UNITS/ML SQ SCH (21:00)
[2021-08-03] MEDS ORDERED: LORazepam 2 MG/ML VIAL IV ONE (02:31)
[2021-08-03 03:51] LABS: Basophils % 0.1 % (0-1.3); Lymphocytes % 2.5 % (15.3-44.8); MPV 10.2 fL (7.6-11.3)
[2021-08-03 04:11] LABS: Hematocrit 19.2 % (39.6-49.0)
[2021-08-03 04:44] VITALS: TEMP 97.6
[2021-08-03 04:46] LABS: Magnesium 2.7 mg/dL (1.8-2.4)
[2021-08-03 04:52] LABS: Basophilic Stippling 1+; Blood Morphology Comment NOTED (NOT SEEN)
[2021-08-03 04:53] LABS: Platelet Estimate DECR; Polychromasia SLIGHT; White Blood Cell Scan OK (OK)
[2021-08-03] MEDS: LEVOTHYROXINE SOD 0.025 MG TAB PO SCH (04:53)
[2021-08-03] MEDS: carvediloL 3.125 MG TAB PO SCH (04:53)
[2021-08-03 05:10] LABS: Potassium 5.7 mmol/L (3.5-5.1)
[2021-08-03] MEDS: INSULIN -REGULAR HUMAN 50 UNIT/0.5 ML ML SQ SCH ×2 (05:28)
--- NOTE | 2021-08-03 06:14 | P.PN ---
Subjective Date of Service: 08/03/21 Primary Care Provider: Dr. Malin Chief Complaint: Respiratory failure patient still have shortness of breath, AMS poor respon Subjective: Other (Patient has significantly declined. Patient on 100% BiPAP. Pancytopenia noted overnight. Patient given transfusion of blood. Blood pressure significantly low with sats in the 70s 80s.) Physical Examination - Vital Signs Temperature: 97.6 F Blood Pressure: 124/60 Pulse: 93 Respirations: 27 Pulse Ox (%): 88 - Physical Exam Other Physical/Emotional Findings: Lives at home with family - Studies Medications List Reviewed: Yes Assessment & Plan Discharge Plan: Home Plan to discharge in: Greater than 2 days Physician Review Additional Text: COVID: positive CXR: COMPARISON: Chest Single View dated 10/24/2018; Chest Single View dated 07/20/2018; Chest Single View dated 12/27/2016; Chest Single View dated 12/25/2016 FINDINGS: Portable technique limits examination quality. Mild bilateral interstitial lung opacities are present which may represent pulmonary edema. The heart is moderately enlarged. No displaced fractures.Sternotomy wires present. IMPRESSION: Mild CHF suspected. Renal US: COMPARISON: Renal Ultrasound-Complete dated 07/21/2018 FINDINGS: The right kidney measures 9.8 x 5.6 x 4.1 cm. The left kidney measures 9.0 x 5.4 x 4.7 cm. Cortical thickness is normal. Echogenicity is slightly increased. No hydronephrosis or suspicious renal mass. A 14 millimeter cyst is present in the lower right kidney. A 2.3 cm cyst is present in the left kidney. No bladder wall thickening or mass. No intraluminal stone or mass. IMPRESSION: No hydronephrosis or suspicious renal mass. Increased cortical echogenicity is present consistent with medical renal disease. Body habitus artifact may contribute to this as well. Small bilateral renal cysts. ECHO: MEASUREMENTS (cm) DIASTOLIC (NORMALS) SYSTOLIC (NORMALS) IVSd 1.2 (0.6-1.2) LA Diam 3.8 (1.9-4.0) LVEF 60% LVIDd 5.9 (3.5-5.7) LVIDs 1.0 (2.0-3.5) %FS 33% LVPWd 1.3 (0.6-1.2) Ao Diam 3.5 (2.0-3.7) 2 DIMENSIONAL ASSESSMENT: RIGHT ATRIUM: NORMAL LEFT ATRIUM: NORMAL RIGHT VENTRICLE: NORMAL LEFT VENTRICLE: LEFT VENTRICULAR HYPERTROPHY TRICUSPID VALVE: NORMAL MITRAL VALVE: NORMAL PULMONIC VALVE: NORMAL AORTIC VALVE: NORMAL PERICARDIAL EFFUSION: NONE AORTIC ROOT: NORMAL LEFT VENTRICULAR WALL MOTION: DIASTOLIC DYSFUNCTION DOPPLER/COLOR FLOW: DECREASED LEFT VENTRICULAR COMPLIANCE COMMENTS: DIASTOLIC DYSFUNCTION. DECREASED LEFT VENTRICULAR COMPLIANCE. NORMAL EJECTION FRACTION. LEFT VENTRICULAR HYPERTROPHY. NO EFFUSION. Follow up CXR 08/01/2021: COMPARISON: Portable July 28 TECHNIQUE: AP portable chest image was obtained 08/01/2021 7:02 am . FINDINGS: Lung volumes are quite low. Bibasilar airspace opacification is present. Upper lobes are relatively spared. Bilateral pleural effusions are present, less prominent on the right compared to the prior examination. Heart size is prominent. Central vasculature prominent as well. No pneumothorax. IMPRESSION: Limited study showing bibasilar edema or infiltrate. Bilateral pleural effusions, decreased in size on the right compared to July 28. Physical Exam: GENERAL: Patient with increased somnolence. Poor response noted. VITAL SIGNS: Reviewed. Patient now with low blood pressure. Sats in the 70s to 80s. Currently on BiPAP at 100% HEENT: Neck supple LUNGS: Poor inspiration and expiration. Currently on BiPAP at 100% HEART: Regular rate and rhythm ABDOMEN: Soft, nontender, and nondistended. Positive bowel sounds. No hepatosplenomegaly was noted. EXTREMITIES: Mild pitting edema to the lower extremities. NEUROLOGIC: Increased somnolence noted SKIN: No ulcerations or rashes noted. Impression: Dyspnea secondary to acute respiratory failure with hypoxia related to bilateral Covid pneumonia complicated with acute on chronic diastolic CHF Elevated troponin likely ischemic demand versus NSTEMI Hypertension with hypotension Hyperlipidemia BPH Diabetes mellitus type 2 with hyperglycemia Acute on chronic renal disease stage 5 with nonanion gap metabolic acidosis and hyperkalemia Hypothyroidism Diabetic neuropathy Pancytopenia Plan: Dyspnea secondary to acute respiratory failure with hypoxia related to bilateral Covid pneumonia complicated with acute on chronic diastolic CHF: Patient has significantly declined. Patient with acute renal failure requiring hemodialysis. Dialysis catheter placed yesterday. Dialysis performed yesterday. Now with pancytopenia. Poor inspiration noted with poor saturations. Will give IV fluid bolus. Patient given transfusion earlier this morning. Case discussed at length with daughter at bedside. Advanced directives readdressed in detail with daughter. Patient remains DNR. For now we will continue with current measures. Patient likely to soon due to his poor prognosis. Family is aware. Family to come and visit. Need to consider withdrawal of care if his condition continues to decline. Elevated troponin likely ischemic demand versus NSTEMI: Echo reveals diastolic dysfunction. Normal ejection fraction noted. No effusion noted. Cardiology recommended cardiac stress test as an outpatient. Hypertension with hypotension: Patient appears to have significantly declined. Continue as above. May need to hold blood pressure medication due to low blood pressure. Hyperlipidemia: Continue Crestor 40 mg daily BPH: Continue Flomax 0.4 mg daily Diabetes mellitus type 2 with hyperglycemia: Continue Accu-Cheks and sliding scale. Hemoglobin A1c 6.2. Continue to adjust Lantus for better control. Acute on chronic renal disease stage 5 with nonanion gap metabolic acidosis and hyperkalemia: Patient was started on dialysis yesterday. Dialysis catheter placed yesterday. Hold dialysis today due to his current status. Hypothyroidism: Continue with levothyroxine 25 mcg daily Diabetic neuropathy: Continue gabapentin. Hold if with increase sedation. Pancytopenia: Likely related to above. Patient given transfusion of blood. May need blood transfusion to maintain hemoglobin. Currently poor prognosis at this time. Will monitor closely. Code Status: Patient is DO NOT RESUSCITATE DVT prophylaxis: Heparin Advanced Care Planning-30 minutes: Patient remains DO NOT RESUSCITATE. Spoke with daughter at length concerning plan of care. We will continue with current measures at this time. Daughter understands the severity of his illness. Patient with poor prognosis. Patient likely to as his condition continues to decline. Time Spent Managing Pts Care (In Minutes): 55
[2021-08-03] MEDS: PANTOPRAZOLE 40 MG INJ IVP SCH (07:27)
[2021-08-03] MEDS: METHYLPREDNISOLONE 40 MG INJ IV SCH (07:27)
[2021-08-03] MEDS ORDERED: NA CHLORIDE 0.9% 250 ML IV PRN (08:08)
[2021-08-03] MEDS ORDERED: NA CHLORIDE 0.9% 250 ML IV ONE (08:16)
[2021-08-03 08:25] LABS: Protime INR 1.08
--- NOTE | 2021-08-03 08:49 | P.DS ---
Admission Date: 07/16/21 Discharge Date: 08/03/21 Primary Care Provider: Dr. Malin Disposition: Discharge Condition: Reason for Admission: Respiratory failure patient still have shortness of breath, AMS poor respon Consultations: Pulmonary-Dr. Solorio Cardiology-Dr. Stone [facility] [place] [facility]-Dr. Harrington Procedures: COVID: positive CXR: COMPARISON: Chest Single View dated 10/24/2018; Chest Single View dated 07/20/2018; Chest Single View dated 12/27/2016; Chest Single View dated 12/25/2016 FINDINGS: Portable technique limits examination quality. Mild bilateral interstitial lung opacities are present which may represent pulmonary edema. The heart is moderately enlarged. No displaced fractures.Sternotomy wires present. IMPRESSION: Mild CHF suspected. Renal US: COMPARISON: Renal Ultrasound-Complete dated 07/21/2018 FINDINGS: The right kidney measures 9.8 x 5.6 x 4.1 cm. The left kidney measures 9.0 x 5.4 x 4.7 cm. Cortical thickness is normal. Echogenicity is slightly increased. No hydronephrosis or suspicious renal mass. A 14 millimeter cyst is present in the lower right kidney. A 2.3 cm cyst is present in the left kidney. No bladder wall thickening or mass. No intraluminal stone or mass. IMPRESSION: No hydronephrosis or suspicious renal mass. Increased cortical echogenicity is present consistent with medical renal disease. Body habitus artifact may contribute to this as well. Small bilateral renal cysts. ECHO: MEASUREMENTS (cm) DIASTOLIC (NORMALS) SYSTOLIC (NORMALS) IVSd 1.2 (0.6-1.2) LA Diam 3.8 (1.9-4.0) LVEF 60% LVIDd 5.9 (3.5-5.7) LVIDs 1.0 (2.0-3.5) %FS 33% LVPWd 1.3 (0.6-1.2) Ao Diam 3.5 (2.0-3.7) 2 DIMENSIONAL ASSESSMENT: RIGHT ATRIUM: NORMAL LEFT ATRIUM: NORMAL RIGHT VENTRICLE: NORMAL LEFT VENTRICLE: LEFT VENTRICULAR HYPERTROPHY TRICUSPID VALVE: NORMAL MITRAL VALVE: NORMAL PULMONIC VALVE: NORMAL AORTIC VALVE: NORMAL PERICARDIAL EFFUSION: NONE AORTIC ROOT: NORMAL LEFT VENTRICULAR WALL MOTION: DIASTOLIC DYSFUNCTION DOPPLER/COLOR FLOW: DECREASED LEFT VENTRICULAR COMPLIANCE COMMENTS: DIASTOLIC DYSFUNCTION. DECREASED LEFT VENTRICULAR COMPLIANCE. NORMAL EJECTION FRACTION. LEFT VENTRICULAR HYPERTROPHY. NO EFFUSION. Follow up CXR 08/01/2021: COMPARISON: Portable July 28 TECHNIQUE: AP portable chest image was obtained 08/01/2021 7:02 am . FINDINGS: Lung volumes are quite low. Bibasilar airspace opacification is present. Upper lobes are relatively spared. Bilateral pleural effusions are present, less prominent on the right compared to the prior examination. Heart size is prominent. Central vasculature prominent as well. No pneumothorax. IMPRESSION: Limited study showing bibasilar edema or infiltrate. Bilateral pleural effusions, decreased in size on the right compared to July 28. Surgery: Date: 08/02/21 12:13 Administration Assistant: NONE,NONE Preoperative diagnosis: ARF, Hyperkalemia Postoperative diagnosis: same Primary procedure: RIJ Tesio, Fluroscopy Secondary procedure: LIJ Central line, Fluoroscopy Anesthesia: MAC Estimated blood loss: min Specimen: None Findings: Normal Anatomy Complications: None Medical Problem List: Dyspnea secondary to acute respiratory failure with hypoxia related to bilateral Covid pneumonia complicated with acute on chronic diastolic CHF Elevated troponin likely ischemic demand versus NSTEMI Hypertension with hypotension Hyperlipidemia BPH Diabetes mellitus type 2 with hyperglycemia Acute on chronic renal disease stage 5 with nonanion gap metabolic acidosis and hyperkalemia Hypothyroidism Diabetic neuropathy Pancytopenia Brief History of Present Illness: 81-year-old male presented with increasing shortness of breath. Patient also had a weakness. Patient found to have Covid pneumonia. Patient also found to have elevated troponin. Patient was admitted for treatment. Patient with underlying history of diabetes, hypertension, chronic renal disease, CHF, BPH and hypothyroidism. Hospital Course: Patient presented with dyspnea secondary to bilateral Covid pneumonia. This was complicated with acute respiratory failure with hypoxia, acute on chronic diastolic CHF, and acute on chronic renal disease stage V. His course of hospitalization was prolonged and complex. Patient was seen by cardiology, pulmonology, nephrology and surgery. His condition did not improve. Patient received treatment for Covid pneumonia with minimal change. Patient required high flow and BiPAP. Patient also received treatment for CHF including IV diuretic therapy. Patient also with acute on chronic renal disease. His renal disease continued to decline. Patient had elevated troponin likely from ischemic demand ischemic demand. No intervention was required by cardiology. His overall condition and renal function continued to decline without improvement with conservative measures. Patient required dialysis. As his condition further declined advanced directives were addressed in detail with the family. Patient was made DNR. Family did want to pursue dialysis. Dialysis catheter placement was done. Patient received dialysis. The following day after dialysis the patient began to have increased work of breathing. Worsening pancytopenia was noted. Patient did receive transfusion of blood. Patient required BiPAP at 100%. Patient still remained hypoxic. As his condition further decline plan of care was addressed in detail with family. Patient wanted to continue with conservative measures. Family understood his condition was poor. The patient peacefully. May he rest in peace. Please see progress notes for details. Vital Signs/Physical Exam: Temp Pulse Resp BP Pulse Ox 97.6 F 93 H 27 H 124/60 88 L 08/03/21 08:16 08/03/21 08:16 08/03/21 08:16 08/03/21 08:16 08/03/21 08:16 General: Other (Patient ) Other Physical/Emotional Findings: Lives at home with family Laboratory Data at Discharge: WBC 1.60 K/uL (4.3-10.9) L* D 08/03/21 02:48 Hgb 6.3 g/dL (13.6-17.9) L* 08/03/21 02:48 Hct 19.2 % (39.6-49.0) L* 08/03/21 02:48 Plt Count 40 K/uL (152-406) L* D 08/03/21 02:48 PT 12.4 SECONDS (9.5-12.5) 08/03/21 07:30 INR 1.08 08/03/21 07:30 APTT 26.3 SECONDS (24.3-36.9) 08/03/21 07:30 Sodium 138 mmol/L (136-145) 08/03/21 02:48 Potassium 5.7 mmol/L (3.5-5.1) H* 08/03/21 02:48 BUN 106 mg/dL (7-18) H D 08/03/21 02:48 Creatinine 3.40 mg/dL (0.55-1.3) H 08/03/21 02:48 Glucose 300 mg/dL (74-106) H 08/03/21 02:48 Uric Acid 15.6 mg/dL (3.5-7.2) H 07/29/21 03:50 Phosphorus Cancelled 08/01/21 05:00 Magnesium 2.7 mg/dL (1.8-2.4) H D 08/03/21 02:48 Total Bilirubin 0.4 mg/dL (0.2-1.0) 07/30/21 04:09 AST 44 U/L (15-37) H 07/30/21 04:09 ALT 30 U/L (12-78) 07/30/21 04:09 Alkaline Phosphatase 72 U/L (45-117) 07/30/21 04:09 Troponin I 1.43 ng/mL (0.0-0.045) H* 07/17/21 09:40 Triglycerides 71 mg/dL (<150) 07/18/21 03:46 Cholesterol 115 mg/dL (<200) 07/18/21 03:46 HDL Cholesterol 54 mg/dL (40-60) 07/18/21 03:46 Cholesterol/HDL Ratio 2.13 07/18/21 03:46 Home Medications: Aspirin Chewable [Aspirin Chewable*] 81 mg PO DAILY 12/20/16 Gabapentin [Neurontin*] 400 mg PO BID 07/20/18 Levothyroxine [Synthroid*] 0.025 mg PO [id number] 07/20/18 Rosuvastatin [Crestor*] 40 mg PO DAILY 07/20/18 carvediloL [Coreg*] 3.125 mg PO BID 07/20/18 Tamsulosin HCl 0.4 mg PO DAILY 10/24/18 Cefdinir [Cefdinir*] 300 mg PO BID #6 cap 10/27/18 Physician Discharge Instructions: Patient . May he rest in peace Followup: Juan Malin MD [Primary Care Provider] - Time spent managing pt's care (in minutes): 55
[2021-08-03] MEDS: FUROSEMIDE 40 MG/4 ML VIAL IV SCH (09:00)
[2021-08-03] MEDS: ROSUVASTATIN 10 MG TAB PO SCH (09:00)
[2021-08-03] MEDS: VITAMIN D 1000 UNIT TAB PO SCH (09:00)
[2021-08-03] MEDS: GLUCERNA SHAKE 237 ML CAN PO SCH (09:00)
[2021-08-03] MEDS: BARICITINIB 2 MG TABLET PO SCH (09:00)
[2021-08-03] MEDS: THIAMINE HCL 100 MG TABLET PO SCH (09:00)
[2021-08-03 09:28] VITALS: BP 69/40
[2021-08-03 09:38] VITALS: O2SAT 74
--- NOTE | 2021-08-03 21:44 | OP ---
Date of Procedure: 08/02/2021 Surgeon: Adam Harrington MD Adolescent Counselor: None. Please note, phone system was not working yesterday and that is why I am dictating today. Preoperative Diagnoses: Acute renal failure, hyperkalemia, and poor IV access. Postoperative Diagnosis: Acute renal failure, hyperkalemia, and poor IV access. Procedure: Right IJ Tesio catheter with the use of fluoroscopy and left IJ central line placement wi th the use of fluoroscopy. Estimated Blood Loss: Minimal. Specimen: None. Findings: Normal anatomy. Anesthesia: MAC. Complications: None. Disposition: The patient tolerated the procedure in stable condition and taken to Recovery in good g eneral condition. Procedure In Detail: The patient was brought to the OR and placed in supine position. MAC anesthesi a was begun. The patient was prepped and draped in the usual sterile fashion. Lidocaine 1% infiltra blanca locally. An 18-gauge needle used to access the right IJ vein. Guidewire was passed. Position w as confirmed with fluoroscopy. Counterincision was made. Tunneling device used to tunnel the cathet er between the 2 wounds and then Seldinger technique used. Vein dilated and tip of the catheter plac ed in the SVC under fluoroscopy. Catheter flushed with heparin and packed with heparin with good blo od flow and then 0 chromic used to approximate the subcutaneous tissue and close skin and 3-0 nylon u sed to secure the tube to the chest wall. Sterile dressing applied in the left neck, lidocaine 1% in filtrated locally and an 18-gauge needle used to access the left IJ vein, guidewire passed, position confirmed with fluoroscopy. Seldinger technique was used and triple-lumen catheter placed and secure d with 3-0 silk and sterile dressing applied. Good flow was obtained. The patient was awakened and t aken to Recovery in good general condition. Chest x-ray was done, in Recovery, which showed no evide nce of pneumothorax with good placement of the catheters. /MODL Voice ID: [id number] Report ID: [id number]
[2021-08-06 13:22] LABS: HBsAG Nonreactive (Nonreactive)
== END 2021-08-03 12:08 | disposition expired | DRG 177 ==
LOC: ER 13:02 → 4TH 20:44
PROVIDERS: ADMIT Internal Medicine; ATTEND Emergency Medicine
PROC: 5A09457 Assistance with Respiratory Ventilation, 24-96 Consecutive Hours, Continuous Positive Airway Pressure (ICD-10-PCS; principal; 2021-07-20)
DX: U07.1 COVID-19 (principal); J12.82 Pneumonia due to coronavirus disease 2019; J96.01 Acute respiratory failure with hypoxia; I50.33 Acute on chronic diastolic (congestive) heart failure; I13.2 Hypertensive heart and chronic kidney disease with heart failure and with stage 5 chronic kidney disease, or end stage renal disease; N18.5 Chronic kidney disease, stage 5; N17.9 Acute kidney failure, unspecified; D61.818 Other pancytopenia; I24.8 Other forms of acute ischemic heart disease; E87.2 Acidosis; N39.0 Urinary tract infection, site not specified; E87.1 Hypo-osmolality and hyponatremia; N25.81 Secondary hyperparathyroidism of renal origin; E11.22 Type 2 diabetes mellitus with diabetic chronic kidney disease; E11.65 Type 2 diabetes mellitus with hyperglycemia; I95.9 Hypotension, unspecified; E78.5 Hyperlipidemia, unspecified; N40.0 Benign prostatic hyperplasia without lower urinary tract symptoms; E87.5 Hyperkalemia; E03.9 Hypothyroidism, unspecified; R13.10 Dysphagia, unspecified; B95.2 Enterococcus as the cause of diseases classified elsewhere; E11.40 Type 2 diabetes mellitus with diabetic neuropathy, unspecified; E83.51 Hypocalcemia; Z85.038 Personal history of other malignant neoplasm of large intestine; Z95.1 Presence of aortocoronary bypass graft; Z96.642 Presence of left artificial hip joint; Z90.49 Acquired absence of other specified parts of digestive tract; Z74.01 Bed confinement status; Z66 Do not resuscitate
CPT/HCPCS: 0240U; 36415; 71045; 76000; 76770; 80048; 80053; 80061; 80069; 80076; 81003; 81015; 82550; 82570; 82652; 82728; 82746; 82805; 82947; 83010; 83036; 83540; 83605; 83615; 83735; 83880; 83930; 83935; 83970; 84100; 84132; 84145; 84156; 84165; 84300; 84443; 84484; 84550; 85014; 85018; 85025; 85044; 85379; 85384; 85610; 85730; 86140; 86704; 86706; 86803; 86850; 86900; 86901; 87040; 87077; 87086; 87088; 87186; 87340; 92610; 93005; 93306; 94002; 94003; 94010; 94660; 94760; 96372; 96374; 97112; 97161; 97530; 99285; C1752; C9113; J0360; J0690; J0696; J1170; J1644; J1650; J1815; J1940; J2250; J2270; J2370; J2704; J2920; J3010; J7030; J7040; J7050; P9016; P9047